=== PATIENT | female | born 1980 | race Two or more races ===

== ENCOUNTER 2016-08-16 08:55 | Emergency (ER) | payer OTHER ==
[2016-08-16 08:59] VITALS: BP 110/61; PULSE 100; TEMP 98.4; BMI 33.8
--- NOTE | 2016-08-16 09:39 | PDOC ---
History of Present Illness - General Chief Complaint: Cold Symptoms Stated Complaint: CHEST PAIN, BODY ACHES, SOB Time Seen by Provider: 08/16/16 09:34 History Source: Patient Exam Limitations: No Limitations - History of Present Illness Initial Comments: 08/16/16 9:22 Reason came to emergency department for evaluation of chills, body aches, sore throat pain with headache. Start 3 days ago with worsened temperature yesterday MAXIMUM TEMPERATURE 101. 6-year-old son is ill with same and complaints of sore throat. took Aleve with some relief of body aches. has a moist cough but nonproductive. Timing/Duration: reports: just prior to arrival, changing over time, getting worse Severity: reports: mild, moderate Associated Symptoms: reports: chest pain/soreness, cough, dizziness, fever/ chills, headache, nasal congestion, sore throat Past History - Travel Traveled outside of the country in the last 30 days: No Close contact w/someone who was outside of country & ill: No - Past Medical History Allergies/Adverse Reactions: Allergies Allergy/AdvReac Type Severity Reaction Status Date / Time No Known Allergies Allergy Verified 08/16/16 08:58 Home Medications: Ambulatory Orders Azithromycin [Zithromax -] 250 mg PO UTDICT #6 tab 08/16/16 Asthma: Yes Diabetes: Yes Suicide Attempt (Hx): No Seizures: Yes (2011) - Immunization History Immunization Up to Date: No - Psycho/Social/Smoking Cessation Hx Anxiety: No Suicidal Ideation: No Smoking Status: Yes Smoking History: Current every day smoker Number of Cigarettes Smoked Daily: 10 Information on smoking cessation initiated: No 'Breaking Loose' booklet given: 04/24/13 Hx Alcohol Use: No Drug/Substance Use Hx: No Substance Use Type: None Review of Systems - Review of Systems Able to Perform ROS?: Yes Is the patient limited German proficient: Yes Constitutional: Yes: Symptoms Reported, See HPI, Fever, Malaise HEENTM: Yes: Symptoms Reported, See HPI Respiratory: Yes: Symptoms reported, See HPI, Cough ABD/GI: Yes: Symptoms Reported, Nausea. No: Vomiting : No: Symptoms Reported Integumentary: Yes: Symptoms Reported, See HPI Neurological: Yes: Symptoms reported, See HPI, Headache All Other Systems: Reviewed and Negative *Physical Exam - Vital Signs Last Vital Signs Temp Pulse Resp BP Pulse Ox 98.4 F 100 H 18 110/61 98 08/16/16 08:57 08/16/16 08:57 08/16/16 08:57 08/16/16 08:57 08/16/16 08:57 - Physical Exam General Appearance: Yes: Nourished, Appropriately Dressed, Apparent Distress, Mild Distress HEENT: positive: GIANNA, TMs Normal (congested ), Pharyngeal Erythema, Tonsillar Erythema, Nasal Congestion, Rhinorrhea (clear). negative: Normal ENT Inspection , Pharynx Normal Neck: positive: Tender, Supple, Lymphadenopathy (R), Lymphadenopathy (L). negative: Decreased range of motion Respiratory/Chest: positive: Lungs Clear, Normal Breath Sounds, Decreased Breath Sounds (no wheezing or retractions ). negative: Wheezing Cardiovascular: positive: Regular Rhythm, Regular Rate Gastrointestinal/Abdominal: positive: Soft. 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, Fully Oriented, Alert, Normal Mood/ Affect, Normal Response, Motor Strength 5/5 Heart Score/ECG Review - ECG Intrepretation Rhythm: Regular Rhythm - ECG Impressions Normal ECG: Yes Non-specific ST Elevation: No Ischemic Changes: No Progress Note - Progress Note Progress Note: bronchitis/ possible Strep - will treat with Zithromax *DC/Admit/Observation/Transfer Diagnosis at time of Disposition: Bronchitis - Discharge Dispostion Disposition: HOME Condition at time of disposition: Stable Admit: No - Prescriptions Prescriptions: Azithromycin [Zithromax -] 250 mg PO UTDICT #6 tab - Referrals Referrals: Alexei Villaseñor [Primary Care Provider] - - Patient Instructions Printed Discharge Instructions: DI for Acute Bronchitis Additional Instructions: Rest, drink lots of fluids: Teas, water, soups, Pedialyte Saltwater gargles Steamy showers/seem to face break up mucus Avoid contact with others until fevers and cough resolved Lots of handwashing and good hygiene Continue [id number]-[id number] medications for symptomatic relief Tylenol or Motrin for fever and pain Followup with private physician in one to 2 days as needed Return to emergency department for worsened symptoms, fevers, dehydration - Post Discharge Activity Work/School Note: Back to Work
--- NOTE | 2016-08-18 15:39 | EKG ---
Test Reason : Blood Pressure : / mmHG Vent. Rate : 108 BPM Atrial Rate : 108 BPM P-R Int : 136 ms QRS Dur : 082 ms QT Int : 332 ms P-R-T Axes : 066 048 047 degrees QTc Int : 444 ms SINUS TACHYCARDIA POSSIBLE LEFT ATRIAL ENLARGEMENT BORDERLINE ECG WHEN COMPARED WITH ECG OF 07-SEP-2010 14:51, NO SIGNIFICANT CHANGE WAS FOUND Confirmed by BILL ARRIETA MD ([id number]) on 08/18/2016 3:39:16 PM Referred By: Confirmed By:BILL ARRIETA MD
== END 2016-08-16 09:43 | disposition home or self-care (01) ==
LOC: JERFT 08:55
DX: J40 Bronchitis, not specified as acute or chronic (principal); J45.909 Unspecified asthma, uncomplicated; E11.9 Type 2 diabetes mellitus without complications; Z86.69 Personal history of other diseases of the nervous system and sense organs; F17.210 Nicotine dependence, cigarettes, uncomplicated
CPT/HCPCS: 93005; 93010; 99281-25

== ENCOUNTER 2017-03-21 12:38 | Emergency (ER) | payer OTHER ==
[2017-03-21 13:07] VITALS: BP 120/56; PULSE 93; TEMP 98.3; BMI 35.9
[2017-03-21] MEDS ORDERED: IBUPROFEN 600 MG TABLET (FP) PO ONE ×2 (14:26→14:29)
--- NOTE | 2017-03-21 14:31 | PDOC ---
History of Present Illness - General Chief Complaint: Cold Symptoms Stated Complaint: EAR AND THROAT PAIN Time Seen by Provider: 03/21/17 14:06 History Source: Patient Exam Limitations: No Limitations - History of Present Illness Initial Comments: 03/21/17 14:26 36 yr female with c/o sore throat right ear pain and rash to right lower leg. rash for 2 weeks, sore throat ear pain for 3 days no diff swallowing. no sick contacts Severity: reports: mild Past History - Past Medical History Allergies/Adverse Reactions: Allergies Allergy/AdvReac Type Severity Reaction Status Date / Time No Known Allergies Allergy Verified 03/21/17 13:04 Home Medications: Ambulatory Orders Betamethasone Dipr 0.05% Oint [Diprolene] 50 gm TP BID #1 tube 03/21/17 Penicillin V Potassium [Pen Vee K -] 500 mg PO BID #20 tablet 03/21/17 Asthma: Yes COPD: No Diabetes: Yes Seizures: Yes (2011) - Immunization History Immunization Up to Date: No - Suicide/Smoking/Psychosocial Hx Smoking Status: Yes Smoking History: Current every day smoker Have you smoked in the past 12 months: Yes Number of Cigarettes Smoked Daily: 8 Information on smoking cessation initiated: No 'Breaking Loose' booklet given: 04/24/13 Hx Alcohol Use: No Drug/Substance Use Hx: No Substance Use Type: None Review of Systems - Review of Systems Able to Perform ROS?: Yes Is the patient limited Icelandic proficient: No Constitutional: No: Symptoms Reported HEENTM: No: Symptoms Reported Respiratory: No: Symptoms reported Cardiac (ROS): No: Symptoms Reported ABD/GI: No: Symptoms Reported Musculoskeletal: No: Symptoms Reported Integumentary: No: Symptoms Reported *Physical Exam - Vital Signs Last Vital Signs Temp Pulse Resp BP Pulse Ox 98.3 F 93 H 19 120/56 98 03/21/17 13:04 03/21/17 13:04 03/21/17 13:04 03/21/17 13:04 03/21/17 13:04 - Physical Exam General Appearance: Yes: Nourished, Appropriately Dressed HEENT: positive: EOMI, GIANNA, Pharyngeal Erythema, TM Erythema. negative: Nasal Congestion, Orbits, TM Bulging, TM Dull Neck: positive: Supple. negative: Tender Respiratory/Chest: positive: Lungs Clear, Normal Breath Sounds Cardiovascular: positive: Regular Rhythm, Regular Rate Integumentary: positive: Rash (right lower leg ankle laterally with red excoraited area , scaly with multiple scabbed areas ) Medical Decision Making - Medical Decision Making 03/21/17 14:33 cc: sore throat right ear pain scaly red rash to right ankle for 2 months will check rapid strep motrin for pain will prescribe *DC/Admit/Observation/Transfer Diagnosis at time of Disposition: Strep pharyngitis - Discharge Dispostion Disposition: HOME Condition at time of disposition: Good - Prescriptions Prescriptions: Betamethasone Dipr 0.05% Oint [Diprolene] 50 gm TP BID #1 tube Penicillin V Potassium [Pen Vee K -] 500 mg PO BID #20 tablet - Referrals Referrals: Lashanda Ruiz MD [Staff Physician] - - Patient Instructions Printed Discharge Instructions: DI for Strep Throat Additional Instructions: take Penicillin for 10 days throw out toothbrush at end of treatment gargle with warm salt water 4-5 times a day take ibuprofen 600mg every 6hrs for pain or fever apply the ointment as directed to the rash follow with the dermatolgoist for follow up next week - Post Discharge Activity
== END 2017-03-21 14:59 | disposition home or self-care (01) ==
LOC: JERFT 12:38
DX: J02.0 Streptococcal pharyngitis (principal); B95.0 Streptococcus, group A, as the cause of diseases classified elsewhere; J45.909 Unspecified asthma, uncomplicated; E11.9 Type 2 diabetes mellitus without complications; Z86.69 Personal history of other diseases of the nervous system and sense organs
CPT/HCPCS: 87070; 87077; 87430; 99281-25

== ENCOUNTER 2017-07-02 16:48 | Emergency (ER) | payer OTHER ==
--- NOTE | 2017-07-02 16:56 | PDOC ---
Rapid Medical Evaluation Time Seen by Provider: 07/02/17 16:52 Medical Evaluation: Allergies Allergy/AdvReac Type Severity Reaction Status Date / Time No Known Allergies Allergy Verified 03/21/17 13:04 07/02/17 16:52 I have performed a brief in-person evaluation of this patient. The patient presents with a chief complaint of: "allergic reaction since yesterday", burning rash from top of my neck all the way down after i used one of those belts to lose weight Pertinent physical exam findings: erythema across waist and back I have ordered the following: nothing The patient will proceed to the ED for further evaluation. Discharge Disposition - Diagnosis Rash - Referrals - Patient Instructions - Post Discharge Activity
[2017-07-02 16:57] VITALS: BP 122/69; PULSE 80; TEMP 98.2; BMI 34.5
[2017-07-02] MEDS ORDERED: diphenhydrAMINE HCL 25 MG CAPSULE (FP) PO ONE (17:36)
[2017-07-02] MEDS ORDERED: diphenhydrAMINE HCL 50 MG CAPSULE PO ONE (17:37)
--- NOTE | 2017-07-02 17:42 | PDOC ---
History of Present Illness - General Chief Complaint: Allergic Reaction Stated Complaint: ALLERGIC REACTION Time Seen by Provider: 07/02/17 16:52 History Source: Patient Exam Limitations: No Limitations - History of Present Illness Initial Comments: 07/02/17 17:43 36-year-old woman without significant past medical history who presents emergency Department with diffuse rash to her trunk which started yesterday. Patient states she purchased a weight loss belt on [employer] and began using yesterday to help lose weight. Patient states after 2-3 hours and warned about she started to have been itching/burning sensation to her upper back, lower back and abdomen. She denies any fevers, shortness of breath, difficulty breathing, wheezing, drooling, headaches, palpitations. Past History - Past Medical History Allergies/Adverse Reactions: Allergies Allergy/AdvReac Type Severity Reaction Status Date / Time No Known Allergies Allergy Verified 07/02/17 17:13 Home Medications: Ambulatory Orders NK [No Known Home Medication] 07/02/17 Asthma: Yes CVA: Yes (NO RESIDUAL EFFECTS) COPD: No Diabetes: Yes (NID) Seizures: Yes (2011) - Immunization History Immunization Up to Date: Yes - Suicide/Smoking/Psychosocial Hx Smoking Status: Yes Smoking History: Current every day smoker Have you smoked in the past 12 months: Yes Number of Cigarettes Smoked Daily: 8 Information on smoking cessation initiated: No 'Breaking Loose' booklet given: 04/24/13 Hx Alcohol Use: No Drug/Substance Use Hx: No Substance Use Type: None Review of Systems - Review of Systems Able to Perform ROS?: Yes Is the patient limited Latvian proficient: No Constitutional: No: Symptoms Reported HEENTM: No: Symptoms Reported Respiratory: No: Symptoms reported Cardiac (ROS): No: Symptoms Reported ABD/GI: No: Symptoms Reported : No: Symptoms Reported Musculoskeletal: No: Symptoms Reported Integumentary: Yes: See HPI Neurological: No: Symptoms reported Endocrine: No: Symptoms Reported Hematologic/Lymphatic: No: Symptoms Reported *Physical Exam - Vital Signs Last Vital Signs Temp Pulse Resp BP Pulse Ox 98.2 F 80 18 122/69 100 07/02/17 16:53 07/02/17 16:53 07/02/17 16:53 07/02/17 16:53 07/02/17 16:53 - Physical Exam General Appearance: Yes: Appropriately Dressed. No: Apparent Distress HEENT: positive: Normal ENT Inspection Neck: positive: Trachea midline, Supple. negative: Stridor Respiratory/Chest: positive: Lungs Clear, Normal Breath Sounds. negative: Respiratory Distress, Accessory Muscle Use Cardiovascular: positive: Regular Rhythm, Regular Rate. negative: Murmur Gastrointestinal/Abdominal: positive: Normal Bowel Sounds, Soft. negative: Tender Musculoskeletal: positive: Normal Inspection. negative: CVA Tenderness Extremity: positive: Normal Capillary Refill, Normal Inspection, Normal Range of Motion Integumentary: positive: Rash (Diffuse raised pink rash to abdomen and back) Neurologic: positive: Alert, Normal Response Medical Decision Making - Medical Decision Making 07/02/17 17:46 A/P: 36-year-old female with rash to her back and abdomen status post using a product she purchased online Diffuse raised pink rash noted to abdomen and back. Rash noted to be in perfect for sided geometrical designs consistent with interior pattern of weight loss belt Benadryl 50 mg orally now Discharge home *DC/Admit/Observation/Transfer Diagnosis at time of Disposition: Contact dermatitis Qualifiers: Contact dermatitis type: unspecified Contact dermatitis trigger: unspecified trigger Qualified Code(s): L25.9 - Unspecified contact dermatitis, unspecified cause - Discharge Dispostion Disposition: HOME Condition at time of disposition: Stable Admit: No - Referrals Referrals: Ollie Cerda MD [Staff Physician] - - Patient Instructions Additional Instructions: Apply [id number]-[id number] hydrocortisone cream to affected areas 3 times a day. Take Benadryl 50 mg as needed for itching. Do not drink or drive while taking Benadryl. Avoid using weight loss belt you purchased online. Return to ER for any concerns. - Post Discharge Activity
== END 2017-07-02 17:43 | disposition home or self-care (01) ==
LOC: JERFT 16:48
DX: L23.89 Allergic contact dermatitis due to other agents (principal); E11.9 Type 2 diabetes mellitus without complications; Z79.84 Long term (current) use of oral hypoglycemic drugs; Z86.69 Personal history of other diseases of the nervous system and sense organs; Z86.73 Personal history of transient ischemic attack (TIA), and cerebral infarction without residual deficits; F17.210 Nicotine dependence, cigarettes, uncomplicated
CPT/HCPCS: 99281-25

== ENCOUNTER 2018-07-10 16:08 | Emergency (ER) | payer OTHER ==
--- NOTE | 2018-07-10 16:11 | PDOC ---
Rapid Medical Evaluation Time Seen by Provider: 07/10/18 16:10 Medical Evaluation: Allergies Allergy/AdvReac Type Severity Reaction Status Date / Time No Known Allergies Allergy Verified 07/02/17 17:13 07/10/18 16:10 CC: BS at home 550 PE: NAD Orders: CBC CMP UA U preg Discharge Disposition - Diagnosis Hyperglycemia - Referrals - Patient Instructions - Post Discharge Activity
[2018-07-10 16:17] VITALS: PULSE 80; TEMP 97.8; BMI 33.8
[2018-07-10 16:48] LABS: BASO % 0.4 % (0-2.0); EOS % 1.3 % (0-4.5); HEMOGLOBIN 12.7 GM/dL (10.7-15.3); LYMPH % 33.3 % (8-40); MCH 27.3 pg (25.7-33.7); MCHC 32.5 g/dl (32.0-36.0); MEAN CELL VOLUME 83.7 fl (80-96); MEAN PLT VOLUME 9.8 fl (7.5-11.1); MONO % 7.7 % (3.8-10.2); NEUT % 57.3 % (42.8-82.8); PLATELET COUNT 335 K/MM3 (134-434); RBC 4.66 M/mm3 (3.60-5.2); RDW 13.5 % (11.6-15.6); WHITE BLOOD COUNT 7.2 K/mm3 (4.0-10.0)
--- NOTE | 2018-07-10 16:56 | PDOC ---
History of Present Illness - General Chief Complaint: Blood Sugar Problem Stated Complaint: Blood Sugar Problem Time Seen by Provider: 07/10/18 16:10 History Source: Patient Exam Limitations: No Limitations - History of Present Illness Initial Comments: 07/10/18 17:40 37 yo F with a hx of DM (currently on insulin 20 units levemir BID) presents to the emergency department with elevated blood glucose that has been ongoing since 06/30/2018. Per the patient, she was in the 700s then and placed on levemir. She used to be on insulin 6 years ago but was discontinued per her PMD. She states she saw her PMD this past Friday and had her levemir increased to the 20 units BID. She states she is unable to afford the Novalog that was prescribed to her. Her BG was 550 today and has been experiencing polyuria and polydipsia for the past 3 days. Past History - Past Medical History Allergies/Adverse Reactions: Allergies Allergy/AdvReac Type Severity Reaction Status Date / Time No Known Allergies Allergy Verified 07/10/18 16:12 Home Medications: Ambulatory Orders Atorvastatin Calcium 40 mg PO DAILY 07/10/18 Insulin (Levemir) [Levemir Vial] 20 unit SQ DAILY 07/10/18 Pantoprazole Sodium 40 mg PO DAILY 07/10/18 metFORMIN HCL [Glucophage -] 500 mg PO BID #14 tablet 07/10/18 Asthma: Yes CVA: Yes (NO RESIDUAL EFFECTS) COPD: No Diabetes: Yes (NIDM) Seizures: Yes (2011) - Immunization History Immunization Up to Date: Yes - Suicide/Smoking/Psychosocial Hx Smoking Status: Yes Smoking History: Never smoked Have you smoked in the past 12 months: No Number of Cigarettes Smoked Daily: 8 Information on smoking cessation initiated: No 'Breaking Loose' booklet given: 04/24/13 Hx Alcohol Use: No Drug/Substance Use Hx: No Substance Use Type: None *Physical Exam - Vital Signs Last Vital Signs Temp Pulse Resp BP Pulse Ox 97.8 F 80 16 154/89 100 07/10/18 16:12 07/10/18 16:12 07/10/18 16:12 07/10/18 16:12 07/10/18 16:12 ED Treatment Course - LABORATORY CBC & Chemistry Diagram: 07/10/18 16:18 07/10/18 16:18 *DC/Admit/Observation/Transfer Diagnosis at time of Disposition: Hyperglycemia - Discharge Dispostion Disposition: HOME Decision to Admit order: No - Prescriptions Prescriptions: metFORMIN HCL [Glucophage -] 500 mg PO BID #14 tablet - Referrals Referrals: ON STAFF,NOT [Primary Care Provider] - Stone King MD [Staff Physician] - - Patient Instructions Printed Discharge Instructions: DI for Hyperglycemia -- Adult, Eating a Diet Rich in Fruits and Vegetables, Learn Your Diabetic ABCs Additional Instructions: you were seen for the evaluation of your diabetes. please follow up with your primary medical doctor this friday. please take them medications as prescribed. if you have worsening symptoms or new concerning symptoms such as confusion, fever, chills, nausea, vomiting, chest pain, and decreased urinary output, please return to the emergency department immediately. thank you. - Post Discharge Activity Forms/Work/School Notes: Back to Work
[2018-07-10 17:13] LABS: HCG,QUALITATIVE URINE Negative
[2018-07-10 17:18] LABS: ALBUMIN 4.1 g/dl (3.4-5.0); ALK PHOS 59 U/L (45-117); ANION GAP 8 MMOL/L (8-16); BILIRUBIN,TOTAL 0.4 mg/dL (0.2-1); BLOOD UREA NITROGEN 11 mg/dL (7-18); CALCIUM 9.9 mg/dL (8.5-10.1); CHLORIDE 98 mmol/L (98-107); CO2 23 mmol/L (21-32); CREATININE 0.7 mg/dL (0.55-1.3); GLUCOSE,RANDOM 497 mg/dL (74-106); POTASSIUM 4.2 mmol/L (3.5-5.1); SGOT/AST 18 U/L (15-37); SGPT/ALT 47 U/L (13-61); SODIUM 129 mmol/L (136-145); TOT PROT 7.5 g/dl (6.4-8.2)
[2018-07-10 17:26] LABS: URINE APPEARANCE CLEAR; URINE BILIRUBIN NEGATIVE (NEGATIVE); URINE COLOR YELLOW; URINE GLUCOSE (UA) 3+ (NEGATIVE); URINE KETONE 1+ (NEGATIVE); URINE LEUK ESTERASE NEGATIVE (NEGATIVE); URINE NITRITE NEGATIVE (NEGATIVE); URINE PROTEIN NEGATIVE (NEGATIVE); URINE UROBILINOGEN 0.2 mg/dL (0.2-1.0)
[2018-07-10] MEDS ORDERED: SODIUM CHLORIDE 1,000 ML IV STA (17:34)
[2018-07-10] MEDS ORDERED: INSULIN REGULAR HUMAN 100 UNITS/ML *VIAL IVPUSH ONE (17:34)
[2018-07-10] MEDS ORDERED: INSULIN REGULAR HUMAN 100 UNITS/ML *VIAL ONE (17:45)
--- NOTE | 2018-07-10 18:55 | PDOC ---
Documentation entered by Mook Davis SCRIBE, acting as scribe for Ilana Blankenship MD. Ilana Blankenship MD: This documentation has been prepared by the Susan mya Nirvannie, SCRIBE, under my direction and personally reviewed by me in its entirety. I confirm that the documentation accurately reflects all work, treatment, procedures, and medical decision making performed by me. Attending Attestation - Resident Resident Name: Trevon Moreno - ED Attending Attestation I have performed the following: I have examined & evaluated the patient, The case was reviewed & discussed with the resident, I agree w/resident's findings & plan, Exceptions are as noted - HPI HPI: 07/10/18 18:03 The patient is a 37 year old female, with a significant past medical history of DM (recently insulin dependent 06/30 on 20 units Levemir BID), who presents to the emergency department with, elevated blood glucose. She notes she should have been placed on Novolog, however, she could not afford it. Allergies: NKDA - Physicial Exam PE: 07/10/18 17:32 GENERAL: The patient is in no acute distress. ENT: Ears normal, nares patent, oropharynx clear without exudates. Moist mucous membranes. NECK: Normal range of motion, supple LUNGS: Breath sounds equal, clear to auscultation bilaterally. No wheezes, and no crackles. HEART:Regular rate and rhythm, normal S1 and S2 without murmur, rub or gallop. ABDOMEN: Soft, nontender, normoactive bowel sounds. EXTREMITIES: Normal range of motion, no edema. NEUROLOGICAL: Cranial nerves II through XII grossly intact. Normal speech. No focal neurological deficits. SKIN: Warm, Dry, normal turgor, no rashes or lesions noted. - Medical Decision Making 07/10/18 17:33 Laboratory Tests 07/10/18 07/10/18 07/10/18 16:18 16:18 16:18 WBC 7.2 Hgb 12.7 Hct 39.0 Plt Count 335 Sodium 129 L Potassium 4.2 Chloride 98 Carbon Dioxide 23 Anion Gap 8 BUN 11 Creatinine 0.7 Random Glucose 497 H* Urine HCG, Qual Negative UA pending CXR pending 07/10/18 18:53 Laboratory Tests 07/10/18 07/10/18 16:18 16:18 Urine Ketones 1+ H Urine Nitrite Negative Ur Leukocyte Esterase Negative Urine HCG, Qual Negative Acetone, Qual Positive,trace Hyperglycemia likely related to increasing insulin resistance, increased insulin requirements DOUBT acute infection Will re check fingerstick May need more fluids Pt given goodrx info in order for her to afford her medications Clinical impression: insulin dependent diabetes mellitus, initial presentation Hyperglycemia, initial presentation
[2018-07-10] MEDS ORDERED: metFORMIN HCL 500 MG TABLET (FP) PO ONE (20:17)
[2018-07-10] MEDS ORDERED: metFORMIN HCL 500 MG TABLET (FP) ONE (20:24)
[2018-07-10 20:43] VITALS: BP 150/88
== END 2018-07-10 20:40 | disposition home or self-care (01) ==
LOC: JER 16:08
PROC: 3E0337Z Introduction of Electrolytic and Water Balance Substance into Peripheral Vein, Percutaneous Approach (ICD-10-PCS; principal; 2018-07-10)
PROC: 3E033VG Introduction of Insulin into Peripheral Vein, Percutaneous Approach (ICD-10-PCS; 2018-07-10)
DX: E10.65 Type 1 diabetes mellitus with hyperglycemia (principal); Z79.4 Long term (current) use of insulin; J45.909 Unspecified asthma, uncomplicated; Z86.69 Personal history of other diseases of the nervous system and sense organs; Z86.73 Personal history of transient ischemic attack (TIA), and cerebral infarction without residual deficits
CPT/HCPCS: 36415; 80053; 81003; 82009; 82962; 84703; 85025; 87086; 99283-25; J7030

== ENCOUNTER 2018-08-05 11:42 | Emergency (ER) | payer OTHER | END 2018-08-05 16:58 | disposition home or self-care (01) | LOC: JER 11:42 ==

== ENCOUNTER 2019-05-05 11:43 | Emergency (ER) | payer OTHER ==
[2019-05-05 11:51] VITALS: TEMP 98.2; BMI 34.0
--- NOTE | 2019-05-05 12:26 | PDOC ---
History of Present Illness <Mel Trammell - Last Filed: 05/05/19 17:00> - General History Source: Patient - History of Present Illness Initial Comments: 05/05/19 12:59 Ms. Kramer is a 38 y/o woman w/hx IDDM p/w several days of measured hyperglycemia and difficulty ambulating due to dizziness. She reports similar symptoms in the past when her blood sugar was "very high" and reports measuring her blood sugar today at home in the 300s. She denies any changes to her insulin regimen and follows with endocrinology. She denies any dysuria, hematuria, fevers, chills, cough, chest pain, abdominal pain, weakness, nausea, or vomiting. She reports significant weight loss over the last two months, but is unsure how much weight she has lost. <BarryBrendan cabral - Last Filed: 05/05/19 18:01> - General Chief Complaint: Blood Sugar Problem Stated Complaint: HEADACHE/DIZZINESS Time Seen by Provider: 05/05/19 12:25 Past History <Mel Trammell - Last Filed: 05/05/19 17:00> - Past Medical History Asthma: Yes CVA: Yes (NO RESIDUAL EFFECTS) COPD: No Diabetes: Yes (NIDM) Seizures: Yes (2011) - Immunization History Immunization Up to Date: Yes - Psycho Social/Smoking Cessation Hx Smoking Status: Yes Smoking History: Never smoked Have you smoked in the past 12 months: Yes Number of Cigarettes Smoked Daily: 7 Information on smoking cessation initiated: No 'Breaking Loose' booklet given: 04/24/13 Hx Alcohol Use: No Drug/Substance Use Hx: No Substance Use Type: None <Brendan Henslye - Last Filed: 05/05/19 18:01> - Past Medical History Allergies/Adverse Reactions: Allergies Allergy/AdvReac Type Severity Reaction Status Date / Time No Known Allergies Allergy Verified 05/05/19 11:51 Home Medications: Ambulatory Orders Insulin (Levemir) [Levemir Vial] 30 unit SQ BID 07/10/18 metFORMIN HCL [Glucophage -] 1,000 mg PO BID 03/12/19 Review of Systems - Review of Systems Able to Perform ROS?: Yes Comments:: 05/05/19 13:07 ROS: GENERAL/CONSTITUTIONAL: No fever or chills. No weakness. HEAD, EYES, EARS, NOSE AND THROAT: No change in vision. No ear pain or discharge. No sore throat. CARDIOVASCULAR: No chest pain or shortness of breath RESPIRATORY: No cough, wheezing, or hemoptysis. GASTROINTESTINAL: No nausea, vomiting, diarrhea or constipation. GENITOURINARY: Urinary frequency. No dysuria, or change in urination. MUSCULOSKELETAL: No joint or muscle swelling or pain. No neck or back pain. SKIN: No rash NEUROLOGIC: Lightheadedness. No headache, vertigo, loss of consciousness, or change in strength/sensation. ENDOCRINE: Weight loss. No increased thirst. HEMATOLOGIC/LYMPHATIC: No anemia, easy bleeding, or history of blood clots. ALLERGIC/IMMUNOLOGIC: No hives or skin allergy. <Brendan Hensley - Last Filed: 05/05/19 18:01> *Physical Exam - Vital Signs Last Vital Signs Temp Pulse Resp BP Pulse Ox 98.2 F 96 H 19 128/58 L 98 05/05/19 11:49 05/05/19 11:49 05/05/19 11:49 05/05/19 11:49 05/05/19 11:49 <Mel Trammell - Last Filed: 05/05/19 17:00> - Vital Signs Last Vital Signs Temp Pulse Resp BP Pulse Ox 98.2 F 96 H 19 128/58 L 98 05/05/19 11:49 05/05/19 11:49 05/05/19 11:49 05/05/19 11:49 05/05/19 11:49 - Physical Exam 05/05/19 13:09 PE: GENERAL: Awake, alert, and fully oriented, in no acute distress HEAD: No signs of trauma, normocephalic, atraumatic EYES: PERRLA, EOMI, sclera anicteric, conjunctiva clear ENT: Auricles normal inspection, hearing grossly normal, nares patent, oropharynx clear without exudates. Moist mucosa NECK: Normal ROM, supple, no lymphadenopathy, JVD, or masses LUNGS: No distress, speaks full sentences, clear to auscultation bilaterally HEART: Regular rate and rhythm, normal S1 and S2, no murmurs, rubs or gallops, peripheral pulses normal and equal bilaterally. ABDOMEN: Soft, nontender, normoactive bowel sounds. No guarding, no rebound. No masses EXTREMITIES : Normal inspection, Normal range of motion, no edema. No clubbing or cyanosis NEUROLOGICAL: Cranial nerves II through XII grossly intact. Normal speech, normal gait, no focal sensorimotor deficits SKIN: Warm, Dry, normal turgor, no rashes or lesions noted <Brendan Hensley - Last Filed: 05/05/19 18:01> ED Treatment Course - LABORATORY CBC & Chemistry Diagram: 05/05/19 13:07 05/05/19 13:07 - ADDITIONAL ORDERS Additional order review: Laboratory Results 05/05/19 05/05/19 05/05/19 16:57 16:00 15:45 Anticoagulation Therapy No Result Required. Puncture Site Left radial ABG pH 7.45 ABG pCO2 at Pt Temp 32.7 L ABG pO2 at Pt Temp 101 H ABG HCO3 22.3 ABG O2 Sat (Measured) 97.7 ABG O2 Content 16.4 ABG Base Excess -0.7 Roberto Test Positive VBG pH POC VBG pCO2 POC VBG pO2 VBG HCO3 VBG O2 Sat (Chauncey) VBG Base Excess Carboxyhemoglobin 2.9 H Methemoglobin 1.1 O2 Delivery Device No Result Required. Oxygen Flow Rate Room air Vent Mode No Result Required. Vent Rate No Result Required. Mechanical Rate No Result Required. Pressure Support Vent No Result Required. Sodium Potassium Chloride Carbon Dioxide Anion Gap BUN Creatinine Est GFR (CKD-EPI)AfAm Est GFR (CKD-EPI)NonAf POC Glucometer 272 Random Glucose Calcium Total Bilirubin AST ALT Alkaline Phosphatase Creatine Kinase Troponin I Total Protein Albumin Beta-Hydroxybutyrate Urine Color Urine Appearance Urine pH Ur Specific [place] Urine Protein Urine Glucose (UA) Urine Ketones Urine Blood Urine Nitrite Urine Bilirubin Urine Urobilinogen Ur Leukocyte Esterase Urine HCG, Qual Negative 05/05/19 05/05/19 05/05/19 15:38 13:25 13:21 Anticoagulation Therapy Puncture Site ABG pH ABG pCO2 at Pt Temp ABG pO2 at Pt Temp ABG HCO3 ABG O2 Sat (Measured) ABG O2 Content ABG Base Excess Roberto Test VBG pH POC VBG pCO2 POC VBG pO2 VBG HCO3 VBG O2 Sat (Chauncey) VBG Base Excess Carboxyhemoglobin Methemoglobin O2 Delivery Device Oxygen Flow Rate Vent Mode Vent Rate Mechanical Rate Pressure Support Vent Sodium Potassium Chloride Carbon Dioxide Anion Gap BUN Creatinine Est GFR (CKD-EPI)AfAm Est GFR (CKD-EPI)NonAf POC Glucometer 255 385 Random Glucose Calcium Total Bilirubin AST ALT Alkaline Phosphatase Creatine Kinase Troponin I Total Protein Albumin Beta-Hydroxybutyrate Urine Color Yellow Urine Appearance Clear Urine pH 5.5 Ur Specific [place] 1.042 H Urine Protein Negative Urine Glucose (UA) 3+ H Urine Ketones 3+ H Urine Blood Negative Urine Nitrite Negative Urine Bilirubin Negative Urine Urobilinogen 0.2 Ur Leukocyte Esterase Negative Urine HCG, Qual 05/05/19 05/05/19 05/05/19 13:07 13:07 13:07 Anticoagulation Therapy Puncture Site ABG pH ABG pCO2 at Pt Temp ABG pO2 at Pt Temp ABG HCO3 ABG O2 Sat (Measured) ABG O2 Content ABG Base Excess Roberto Test VBG pH 7.41 POC VBG pCO2 41.1 POC VBG pO2 < 49 H VBG HCO3 25.5 VBG O2 Sat (Chauncey) 56.4 L VBG Base Excess 1.3 Carboxyhemoglobin Methemoglobin O2 Delivery Device Oxygen Flow Rate Vent Mode Vent Rate Mechanical Rate Pressure Support Vent Sodium 135 L Potassium 4.2 Chloride 103 Carbon Dioxide 25 Anion Gap 8 BUN 6.5 L Creatinine 0.7 Est GFR (CKD-EPI)AfAm 126.49 Est GFR (CKD-EPI)NonAf 109.14 POC Glucometer Random Glucose 410 H* Calcium 9.0 Total Bilirubin 0.3 AST 14 L ALT 24 Alkaline Phosphatase 60 Creatine Kinase 46 Troponin I < 0.02 Total Protein 7.2 Albumin 3.5 Beta-Hydroxybutyrate 7.7 H Urine Color Urine Appearance Urine pH Ur Specific [place] Urine Protein Urine Glucose (UA) Urine Ketones Urine Blood Urine Nitrite Urine Bilirubin Urine Urobilinogen Ur Leukocyte Esterase Urine HCG, Qual 05/05/19 05/05/19 05/05/19 16:57 15:38 13:25 RBC MCV MCHC RDW MPV Neutrophils % Lymphocytes % Monocytes % Eosinophils % Basophils % POC Glucometer 272 255 385 05/05/19 13:07 RBC 4.69 MCV 85.4 MCHC 33.1 RDW 14.0 MPV 9.4 Neutrophils % 70.2 Lymphocytes % 21.4 Monocytes % 7.3 Eosinophils % 0.7 Basophils % 0.4 POC Glucometer - Medications Given in the ED: ED Medications Discontinued Medications Generic Name Dose Route Start Last Admin Trade Name Freq PRN Reason Stop Dose Admin Sodium Chloride 1,000 ml 05/05/19 12:58 05/05/19 13:22 Normal Saline - IV 05/05/19 12:59 1,000 ml ONCE ONE Administration Sodium Chloride 1,000 ml 05/05/19 14:26 05/05/19 15:41 Normal Saline - IV 05/05/19 14:27 1,000 ml ONCE ONE Administration <Mel Trammell - Last Filed: 05/05/19 17:00> - LABORATORY CBC & Chemistry Diagram: 05/05/19 13:07 05/05/19 13:07 <Brendan Hensley - Last Filed: 05/05/19 18:01> Medical Decision Making - Medical Decision Making 05/05/19 13:10 38F w/hx IDDM p/w lightheadedness, hyperglycemia, difficulty ambulating. Ddx includes dka vs HHS, although no nausea/vomiting/confusion/abdominal pain make these less likely. Hyperglycemia without acidosis also possible, although no obvious source of glucose derangement. ACS also possible given possibility of atypical features. Plan: CBC CMP Cardiac Profile EKG CXR Cardiac profile BGM 1L NS IV Dispo: Pending --- BGM - 380 05/05/19 14:32 VBG - 7.41, pCO2 41, Base excess 1.3 Na - 135, Cl - 103, CO2 - 25 Anion gap - 7 CBC - wnl Beta hydroxybutyrate - 7.7 Second fluid bolus ordered, plan for abg s/p fluids --- ABG - pH 7.45, pCO2 32, Bicarb 22 Repeat glucose - 255 Plan for discharge with close endocrinology follow up. <Brendan Hensley - Last Filed: 05/05/19 18:01> Discharge - Discharge Information Problems reviewed: Yes - Admission No <Mel Trammell - Last Filed: 05/05/19 17:00> - Discharge Information Problems reviewed: Yes - Admission No <Brendan Hensley - Last Filed: 05/05/19 18:01> - Discharge Information Clinical Impression/Diagnosis: Blood sugar increased Condition: Stable Disposition: HOME - Follow up/Referral Referrals: ON STAFF,NOT [Non Staff, Medical] - - Patient Discharge Instructions Patient Printed Discharge Instructions: DI for Hyperglycemia -- Adult Additional Instructions: You were seen in the ER for high blood sugar. We did blood and urine laboratories, and an electrocardiogram, and although your blood sugar was very high, there was nothing detected on this workup that requires admission to the hospital at this time. After our assessment, we do not believe you are having a medical emergency at this time, and we believe you are safe to go home. Please take all your diabetes medications as prescribed. Please follow up with your primary care provider in 1-3 days. Call their clinic as soon as possible, tell them you were seen in the ER, and tell them you need an appointment. If you have any new or worsening symptoms, especially inability to control your blood sugars, loss of consciousness, excessive thirst or urination, abdominal pain, or other symptoms, please come back to the ER at any time (24 hours a day). If you are having severe or life threatening symptoms, or symptoms that make it unsafe to drive or have someone drive you, please call 911. Letting your blood sugar go too high or too low can be very dangerous and can result in severe confusion/coma/ in the short term, and heart/kidney/ vascular complications in the intermediate card tender. For example, long-term uncontrolled diabetes like yours could potentially lead to kidney failure and the need for dialysis three days a week. Bottom line: -Your diabetes is a serious illness and you need to take care of yourself. -Take all of your medications, exactly as directed on your prescription. -Eat the healthy diet discussed by you and your regular doctor(s). -Uncontrolled diabetes can lead to heart disease, kidney disease, and brain disease. -Please start seeing an cupola melting supervisor to discuss your diabetes medications.
[2019-05-05] MEDS ORDERED: SODIUM CHLORIDE 0.9% 500 ML INFUS.BAG IV ONE ×2 (12:58→14:26)
[2019-05-05 13:31] LABS: BASO % 0.4 % (0-2.0); EOS % 0.7 % (0-4.5); HEMATOCRIT 40.1 % (32.4-45.2); HEMOGLOBIN 13.3 GM/dL (10.7-15.3); LYMPH % 21.4 % (8-40); MCH 28.3 pg (25.7-33.7); MCHC 33.1 g/dl (32.0-36.0); MEAN CELL VOLUME 85.4 fl (80-96); MEAN PLT VOLUME 9.4 fl (7.5-11.1); MONO % 7.3 % (3.8-10.2); NEUT % 70.2 % (42.8-82.8); PLATELET COUNT 366 K/MM3 (134-434); RBC 4.69 M/mm3 (3.60-5.2); WHITE BLOOD COUNT 6.7 K/mm3 (4.0-10.0)
[2019-05-05 13:43] LABS: VENOUS PC02 41.1 mmHg (38-52); VENOUS PH 7.41 (7.31-7.41)
[2019-05-05 13:44] LABS: VENOUS PO2 < 49 mmHg (28-48)
[2019-05-05 13:47] LABS: PH,URINE 5.5 (5.0-8.0); URINE APPEARANCE CLEAR; URINE BILIRUBIN NEGATIVE (NEGATIVE); URINE COLOR YELLOW; URINE GLUCOSE (UA) 3+ (NEGATIVE); URINE KETONE 3+ (NEGATIVE); URINE LEUK ESTERASE NEGATIVE (NEGATIVE); URINE NITRITE NEGATIVE (NEGATIVE); URINE PROTEIN NEGATIVE (NEGATIVE); URINE UROBILINOGEN 0.2 mg/dL (0.2-1.0)
[2019-05-05 14:00] LABS: ALBUMIN 3.5 g/dl (3.4-5.0); ALK PHOS 60 U/L (45-117); ANION GAP 8 MMOL/L (8-16); BILIRUBIN,TOTAL 0.3 mg/dL (0.2-1); BLOOD UREA NITROGEN 6.5 mg/dL (7-18); CHLORIDE 103 mmol/L (98-107); CO2 25 mmol/L (21-32); CREATININE 0.7 mg/dL (0.55-1.3); POTASSIUM 4.2 mmol/L (3.5-5.1); SGOT/AST 14 U/L (15-37); SGPT/ALT 24 U/L (13-61); SODIUM 135 mmol/L (136-145); TOT PROT 7.2 g/dl (6.4-8.2)
[2019-05-05 14:06] LABS: GLUCOSE,RANDOM 410 mg/dL (74-106)
[2019-05-05 15:54] LABS: ARTERIAL BLD GAS O2 SATURATION 97.7 % (95-98); ARTERIAL BLOOD GAS BASE EXCESS -0.7 meq/l (-2-2); ARTERIAL BLOOD GAS PCO2 32.7 mmHg (35-45); ARTERIAL BLOOD GAS PO2 101 mmHg (80-100); ARTERIAL BLOOD GAS pH 7.45 (7.35-7.45); CARBOXYHEMOGLOBIN 2.9 % (0-2)
[2019-05-05 15:55] LABS: ALLENS TEST POSITIVE
--- NOTE | 2019-05-05 16:07 | PDOC ---
Documentation entered by Vicki Stokes SCRIBE, acting as scribe for Leanne Nichole MD. Leanne Nichole MD: This documentation has been prepared by the Divya may Xhesika, SCRIBE, under my direction and personally reviewed by me in its entirety. I confirm that the documentation accurately reflects all work, treatment, procedures, and medical decision making performed by me. Attending Attestation - Resident Resident Name: Brendan Hensley - ED Attending Attestation I have performed the following: I have examined & evaluated the patient, The case was reviewed & discussed with the resident, I agree w/resident's findings & plan, Exceptions are as noted - HPI HPI: 05/05/19 13:48 The patient is a 38 year old female, with a significant past medical history of IDDM, who presents to the emergency department for several days of hyperglycemia. Pt states she measured her BG today at home and it was in the 300 s. Patient reports difficulty ambulating secondary to her dizziness. The patient denies chest pain, shortness of breath. Denies fever, chills, cough , nausea, vomiting, diarrhea and constipation. Denies dysuria, frequency, urgency and hematuria. Allergies: NKDA - Physicial Exam PE: 05/05/19 16:02 awake alert lungs clear bilat heart rrr no mrg abd soft nt nd . ext wwp no edema. no calf tenderness. awake alert - Medical Decision Making 05/05/19 16:05 38-year-old female insulin-dependent diabetic currently on long-acting and short acting insulin here today for sugars which been running in the 300s. She does have a recent cough and nasal congestion viral-like syndrome but no fevers no chills no abdominal pain no nausea no vomiting no dysuria polyuria no other complaints states she is not Differential includes DKA versus simple hyperglycemia underlying infection plan UA UCG basic labs beta hydroxybutyrate. Patient's labs revealed a sugar of 410 the beta hydroxybutyrate was positive with the 2 L normal saline the patient's glucose did improve is felt she could likely be discharged home with close follow-up will put a call out to her doctor [facility] at [facility] 05/05/19 16:06 05/05/19 16:06 glucose 255 on repeat check. will gio wv home.
[2019-05-05 17:23] VITALS: BP 126/62; PULSE 84
--- NOTE | 2019-05-06 11:54 | EKG ---
Test Reason : Blood Pressure : / mmHG Vent. Rate : 081 BPM Atrial Rate : 081 BPM P-R Int : 146 ms QRS Dur : 090 ms QT Int : 368 ms P-R-T Axes : 037 032 034 degrees QTc Int : 427 ms NORMAL SINUS RHYTHM CANNOT RULE OUT ANTERIOR INFARCT , AGE UNDETERMINED ABNORMAL ECG WHEN COMPARED WITH ECG OF 05-AUG-2018 11:36, NONSPECIFIC T WAVE ABNORMALITY, IMPROVED IN ANTERIOR LEADS Confirmed by LEWIS GAITAN, SHARITA ([id number]) on 05/06/2019 11:54:29 AM Referred By: Confirmed By:SHARITA SAUCEDO MD
== END 2019-05-05 17:22 | disposition home or self-care (01) ==
LOC: JER 11:43
PROC: 3E0337Z Introduction of Electrolytic and Water Balance Substance into Peripheral Vein, Percutaneous Approach (ICD-10-PCS; principal; 2019-05-05)
DX: E11.65 Type 2 diabetes mellitus with hyperglycemia (principal); J45.909 Unspecified asthma, uncomplicated; Z86.73 Personal history of transient ischemic attack (TIA), and cerebral infarction without residual deficits; R56.9 Unspecified convulsions; F17.210 Nicotine dependence, cigarettes, uncomplicated
CPT/HCPCS: 36415; 36600; 71045-TC-FY; 80053; 81003; 82010; 82375; 82550; 82803; 82962; 83050; 84484; 84703; 85025; 87077; 87086; 93005; 93010; 99285-25

== ENCOUNTER 2019-10-13 10:45 | Emergency (ER) | payer OTHER ==
[2019-10-13 10:58] VITALS: BP 125/85; PULSE 72; TEMP 98.9; BMI 26.4
--- NOTE | 2019-10-13 11:19 | PDOC ---
History of Present Illness - General Chief Complaint: Back Pain Stated Complaint: LWR BACK PAIN/NECK RASH Time Seen by Provider: 10/13/19 11:05 History Source: Patient Exam Limitations: No Limitations - History of Present Illness Initial Comments: 10/13/19 11:13 Patient is a 39-year-old female with a history of diabetes who presents to the ED with lower lumbar back tenderness in the midline for the last 1 week. She states she works at [employer] and lifts heavy things all the time. She denies any numbness or tingling down her lower extremities. She denies any difficulty walking. She states the pain is intermittent and sharp in nature. She also states she developed a rash this morning upon waking up to her left neck that was burning her. She denies any fevers or chills. She denies any dysuria, hematuria or frequency/urgency. Past History - Medical History Allergies/Adverse Reactions: Allergies Allergy/AdvReac Type Severity Reaction Status Date / Time No Known Allergies Allergy Verified 10/13/19 10:58 Home Medications: Ambulatory Orders Insulin (Levemir) [Levemir Vial] 30 unit SQ BID 07/10/18 metFORMIN HCL [Glucophage -] 1,000 mg PO BID 03/12/19 Insulin Sliding Scale [Novolog Vial Sliding Scale -] 10 units SQ ACHS 07/10/19 Cephalexin [Keflex] 500 mg PO BID #14 capsule 07/15/19 Clindamycin [Cleocin -] 300 mg PO TID 7 Days #21 capsule 07/20/19 Hydrocortisone 1% Ointment [Hytone 1% Ointment -] 1 applic TP BID 7 Days #1 tube 10/13/19 Asthma: Yes CVA: Yes (NO RESIDUAL EFFECTS) COPD: No Diabetes: Yes (IDDM) Seizures: Yes (2011) - Reproductive History Is Patient Now?: No - Immunization History Immunization Up to Date: Yes - Psycho-Social/Smoking History Smoking Status: Yes Smoking History: Current every day smoker Have you smoked in the past 12 months: Yes Number of Cigarettes Smoked Daily: 10 Information on smoking cessation initiated: No 'Breaking Loose' booklet given: 04/24/13 - Substance Abuse Hx (Audit-C & DAST Scrn) How often the patient has a drink containing alcohol: Monthly or less Score: In Men: 4 or > Positive; In Women: 3 or > Positive: 1 Screen Result (Pos requires Nsg. Audit-10AR): Negative In the last yr the pt used illegal drug/Rx for NonMed reason: No Score: Yes response is considered Positive: 0 Screen Result (Positive result requires Nsg. DAST-10): Negative Review of Systems - Review of Systems Comments:: 10/13/19 11:13 - Review of Systems Able to Perform ROS?: Yes Constitutional: No: Fever, Chills, Loss of Appetite, Night Sweats, Weakness HEENTM: No: Eye Pain, Vision changes, Ear Pain, Throat Pain, Throat Swelling, Mouth Pain, Difficulty Swallowing Respiratory: No: Cough, Shortness of Breath, Wheezing, Sputum Production Cardiac (ROS): No: Chest Pain, Chest Tightness, Palpitations, Irregular Heart Beat, Edema ABD/GI: No: Nausea, Vomiting, Abdominal Pain, Diarrhea : No Dysuria, No Hematuria, No Frequency, No Urgency, No Vaginal Discharge/Pain, No Penile Discharge/Pain Musculoskeletal: No: Muscle Pain, Joint Pain, Muscle Weakness, Neck Pain, positive: Midline lower lumbar back pain Integumentary: No: Lesions, positive: Left posterior neck rash Neurological: No: Headache, Numbness, Tingling, Weakness, Speech Difficulties *Physical Exam - Vital Signs Last Vital Signs Temp Pulse Resp BP Pulse Ox 98.9 F 72 18 125/85 100 10/13/19 10:54 10/13/19 10:54 10/13/19 10:54 10/13/19 10:54 10/13/19 10:54 - Physical Exam 10/13/19 11:14 - Physical Exam General Appearance: Nourished, Appropriately Dressed, No Distress HEENT: EOMI, Normal Voice, Hearing Grossly Normal Neck: Supple, No Lymphadenopathy (R), No Lymphadenopathy (L), No Rigidity, No Decreased range of motion Respiratory/Chest: Lungs Clear, Normal Breath Sounds. No Respiratory Distress, No Accessory Muscle Use Cardiovascular: Regular Rhythm, Regular Rate, S1, S2 Gastrointestinal/Abdominal: Normal Bowel Sounds, Soft. Non-tender, No Guarding, No Rebound, No Rigidity Musculoskeletal: Normal Inspection. No Decreased Range of Motion; positive lower lumbar midline back tenderness to palpation. No paraspinal, right or left lumbar back tenderness to palpation. Full range of motion. Sensation intact to light touch to the bilateral lower extremities. EHL intact bilaterally. Strength 5/5 bilateral lower extremities. Normal gait. Extremity: Normal Capillary Refill, Normal Inspection Integumentary: Normal Color, Dry. There is a dry scaly rash to the posterior left neck consistent with a contact dermatitis or eczema. There are no sharp borders causing concern for a tinea. No vesicles or drainage appreciated. Neurologic: informatica mdm architect II-XII NML intact, Fully Oriented, Alert, Normal Mood/Affect, Normal Response ED Treatment Course - RADIOLOGY Radiology Studies Ordered: Category Date Time Status SPINE-LUMBAR ONLY [RAD] Stat Radiology 10/13/19 11:12 Ordered Medical Decision Making - Medical Decision Making 10/13/19 11:16 Assessment: Pt is a 39 y/o female with complaint of midline lower lumbar back pain and a left posterior neck rash. Plan: -lumbar xray -will d/c with hydrocortisone cream for neck rash -Will reassess 10/13/19 12:27 The patient states that she is unable to wait for the x-ray results and would like to sign out AGAINST MEDICAL ADVICE. I have made the patient aware that since we are not completing her evaluation, that if she leaves the ED she has to do so AMA. She understands that by leaving AMA this can worsen her symptoms, cause permanent disability or even . The patient understands these risks and continues to want to sign out AMA. We will call the patient with results when they become available. We will send the patient a prescription for hydrocortisone to her pharmacy for her neck rash. 10/13/19 12:32 Patient requested to leave AMA. Patient is determined to be of sound mind and reasoning. The patient fully understands the care they are refusing and the risks associated with leaving before complete medical evaluation as explained by the medical team. The patient understands the risks of possible worsening symptoms, permanent disability and even . The patient has been provided with a discharge summary, return preca utions, and the reassurance that the Emergency Department will resume workup if the patient changes their mind. Immediate primary care follow up has been urged. Discharge - Discharge Information Problems reviewed: Yes Clinical Impression/Diagnosis: Contact dermatitis and eczema Low back pain Qualifiers: Chronicity: acute Back pain laterality: midline Sciatica presence: without sciatica Qualified Code(s): M54.5 - Low back pain Condition: Stable Disposition: AGAINST MEDICAL ADVICE - Additional Discharge Information Prescriptions: Hydrocortisone 1% Ointment [Hytone 1% Ointment -] 1 applic TP BID 7 Days #1 tube - Follow up/Referral - Patient Discharge Instructions Patient Printed Discharge Instructions: DI for Low Back Pain, DI for Contact Dermatitis Additional Instructions: You have decided to sign out AGAINST MEDICAL ADVICE as you are unable to wait for your x-ray results. A prescription for a steroid cream has been sent to [facility] for the rash on the back your neck. Once your x-ray results become available, you will get a call regarding your results if they are abnormal. Be sure to follow-up with your primary doctor within 1 to 2 days for repeat evaluation. - Post Discharge Activity
== END 2019-10-13 12:42 | disposition left against medical advice (07) ==
LOC: JERFT 10:45
DX: M54.5 Low back pain (principal); L25.9 Unspecified contact dermatitis, unspecified cause
CPT/HCPCS: 72100-TC-FY; 99283-25

== ENCOUNTER 2020-02-03 13:19 | Emergency (ER) | payer OTHER ==
[2020-02-03 13:39] VITALS: BP 127/81; PULSE 80; TEMP 98.4; BMI 30.2
[2020-02-03] MEDS ORDERED: KETOROLAC TROMETHAMINE 60 MG/2 ML VIAL IM ONE (13:50)
[2020-02-03] MEDS ORDERED: KETOROLAC TROMETHAMINE 60 MG/2 ML VIAL ONE (13:50)
== END 2020-02-03 14:50 | disposition home or self-care (01) ==
LOC: JERFT 13:19
PROC: 3E0233Z Introduction of Anti-inflammatory into Muscle, Percutaneous Approach (ICD-10-PCS; principal; 2020-02-03)
DX: S20.211A Contusion of right front wall of thorax, initial encounter (principal)
CPT/HCPCS: 71046-TC-FY; 71111-TC-FY; 99284-25

== ENCOUNTER 2020-08-17 09:08 | Emergency (ER) | payer OTHER ==
[2020-08-17 09:18] VITALS: BP 108/73; PULSE 95; TEMP 98; BMI 28.3
[2020-08-17] MEDS ORDERED: IBUPROFEN 400 MG TABLET (FP) PO ONE ×2 (10:09→10:11)
== END 2020-08-17 11:37 | disposition home or self-care (01) ==
LOC: JERFT 09:08
DX: S63.502A Unspecified sprain of left wrist, initial encounter (principal)
CPT/HCPCS: 73110-TC-LT-FY; 73130-TC-LT-FY; 99283-25

== ENCOUNTER 2020-12-16 11:07 | Emergency (ER) | payer OTHER ==
[2020-12-16 11:30] VITALS: TEMP 98.1; BMI 25.4
[2020-12-16] MEDS ORDERED: CLINDAMYCIN 600MG PREMIX IVPB 600 MG/50 ML BAG IVPB ONE ×2 (12:35→12:43)
[2020-12-16] MEDS ORDERED: SODIUM CHLORIDE 0.9% 500 ML INFUS.BAG IV ONE (12:36)
[2020-12-16] MEDS ORDERED: ACETAMINOPHEN 1000 MG/100 ML VIAL (NON FORMULARY) IVPB ONE (12:48)
[2020-12-16] MEDS ORDERED: ACETAMINOPHEN INJECTION 100 ML IVPB ONE (13:10)
[2020-12-16 13:57] LABS: BASO % 0.7 % (0-2.0); EOS % 0.6 % (0-4.5); HEMATOCRIT 40.3 % (32.4-45.2); HEMOGLOBIN 13.5 GM/dL (10.7-15.3); LYMPH % 23.1 % (8-40); MCH 28.1 pg (25.7-33.7); MCHC 33.5 g/dl (32.0-36.0); MEAN CELL VOLUME 84.1 fl (80-96); MEAN PLT VOLUME 9.8 fl (7.5-11.1); MONO % 5.6 % (3.8-10.2); PLATELET COUNT 354 10^3/uL (134-434); RDW 14.2 % (11.6-15.6); WHITE BLOOD COUNT 9.9 K/mm3 (4.0-10.0)
[2020-12-16 13:59] LABS: URINE APPEARANCE CLEAR; URINE BILIRUBIN NEGATIVE (NEGATIVE); URINE COLOR YELLOW; URINE GLUCOSE (UA) 3+ (NEGATIVE); URINE KETONE 3+ (NEGATIVE); URINE LEUK ESTERASE NEGATIVE (NEGATIVE); URINE NITRITE NEGATIVE (NEGATIVE); URINE PROTEIN NEGATIVE (NEGATIVE); URINE UROBILINOGEN 0.2 mg/dL (0.2-1.0)
[2020-12-16 14:21] LABS: VENOUS BASE EXCESS -6.3 mmol/L (-2-2); VENOUS O2 SATURATION 35.6 % (70-80); VENOUS PCO2 38.9 mmHg (38-52); VENOUS PH 7.315 (7.310-7.410)
[2020-12-16 14:22] LABS: CHLORIDE 99 mmol/L (98-107); SODIUM 132 mmol/L (136-145)
[2020-12-16 14:24] LABS: CALCIUM 9.3 mg/dL (8.5-10.1)
[2020-12-16 14:25] LABS: ALBUMIN 3.7 g/dl (3.4-5.0); ANION GAP 14 MMOL/L (8-16); BLOOD UREA NITROGEN 9.3 mg/dL (7-18); CO2 19 mmol/L (21-32)
[2020-12-16 14:28] LABS: CREATININE 0.7 mg/dL (0.55-1.3); SGOT/AST 12 U/L (15-37); SGPT/ALT 17 U/L (13-61)
[2020-12-16 14:29] LABS: BILIRUBIN,TOTAL 0.4 mg/dL (0.2-1); TOT PROT 7.9 g/dl (6.4-8.2)
[2020-12-16 14:30] LABS: ALK PHOS 70 U/L (45-117); GLUCOSE,RANDOM 427 mg/dL (74-106)
[2020-12-16 14:33] LABS: N-TERMINAL BNP 17.4 pg/ml (5-125)
[2020-12-16] MEDS ORDERED: POTASSIUM CHLORIDE TABS 20 MEQ TABLET.ER (FP) PO ONE (14:33)
[2020-12-16] MEDS ORDERED: INSULIN REGULAR HUMAN 100 UNITS/ML *VIAL IVPUSH ONE (14:33)
[2020-12-16] MEDS ORDERED: POTASSIUM CHLORIDE TABS 10 MEQ TABLET.ER (FP) ONE (14:42)
[2020-12-16] MEDS ORDERED: INSULIN REGULAR HUMAN 100 UNITS/ML *VIAL ONE (14:42)
[2020-12-16 16:54] VITALS: BP 117/72; PULSE 71
[2020-12-16 17:04] LABS: BLOOD UREA NITROGEN 7.2 mg/dL (7-18); CALCIUM 8.8 mg/dL (8.5-10.1)
[2020-12-16 17:08] LABS: CREATININE 0.4 mg/dL (0.55-1.3)
== END 2020-12-16 17:41 | disposition left against medical advice (07) ==
LOC: JER 11:07
PROC: 3E0333Z Introduction of Anti-inflammatory into Peripheral Vein, Percutaneous Approach (ICD-10-PCS; principal; 2020-12-16)
PROC: 3E03329 Introduction of Other Anti-infective into Peripheral Vein, Percutaneous Approach (ICD-10-PCS; 2020-12-16)
PROC: 3E013VG Introduction of Insulin into Subcutaneous Tissue, Percutaneous Approach (ICD-10-PCS; 2020-12-16)
DX: R73.9 Hyperglycemia, unspecified (principal); K12.2 Cellulitis and abscess of mouth
CPT/HCPCS: 36415; 70491-TC; 71045-TC-FY; 80048; 80053; 81003; 82010; 82550; 82803; 82962; 83605; 83735; 83880; 84484; 85025; 87086; 93005; 93010; 99285-25; J0131; Q9967

== ENCOUNTER 2020-12-16 18:33 | Emergency (ER) | payer OTHER ==
[2020-12-16 18:40] VITALS: BMI 25.4
[2020-12-16 20:20] VITALS: BP 116/80; PULSE 80; TEMP 98.8
== END 2020-12-16 22:41 | disposition short-term general hospital (02) ==
LOC: JER 18:33
DX: K12.2 Cellulitis and abscess of mouth (principal)
CPT/HCPCS: 82962; 99283-25; C9803; U0003; U0005

== ENCOUNTER 2021-03-09 17:47 | Emergency (ER) | payer OTHER ==
[2021-03-09 18:12] VITALS: TEMP 98.7; BMI 22.6
[2021-03-09] MEDS ORDERED: SODIUM CHLORIDE 1,000 ML IV STA (18:12)
[2021-03-09] MEDS ORDERED: INSULIN REGULAR HUMAN 100 UNITS/ML *VIAL IVPUSH ONE (18:12)
[2021-03-09 19:14] LABS: BASO % 0.9 % (0-2.0); EOS % 0.5 % (0-4.5); HEMATOCRIT 44.4 % (32.4-45.2); HEMOGLOBIN 14.5 GM/dL (10.7-15.3); LYMPH % 22.6 % (8-40); MCH 27.2 pg (25.7-33.7); MCHC 32.7 g/dl (32.0-36.0); MEAN CELL VOLUME 83.4 fl (80-96); MEAN PLT VOLUME 10.4 fl (7.5-11.1); MONO % 5.2 % (3.8-10.2); NEUT % 70.8 % (42.8-82.8); PLATELET COUNT 328 10^3/uL (134-434); RBC 5.32 M/mm3 (3.60-5.2)
[2021-03-09 19:27] LABS: VENOUS BASE EXCESS -9.3 mmol/L (-2-2); VENOUS O2 SATURATION 85.5 % (70-80); VENOUS PCO2 27.4 mmHg (38-52); VENOUS PH 7.342 (7.310-7.410)
[2021-03-09 19:30] LABS: CHLORIDE 100 mmol/L (98-107); SODIUM 128 mmol/L (136-145)
[2021-03-09 19:31] LABS: CALCIUM 9.9 mg/dL (8.5-10.1); EPI CELLS 8 /uL (0-25.1); HYALINE CASTS 0 /uL (0-3.1); URINE APPEARANCE CLEAR; URINE BACTERIA 178 /uL (0-1359); URINE BILIRUBIN NEGATIVE (NEGATIVE); URINE COLOR YELLOW; URINE GLUCOSE (UA) 3+ (NEGATIVE); URINE KETONE 1+ (NEGATIVE); URINE LEUK ESTERASE NEGATIVE (NEGATIVE); URINE NITRITE NEGATIVE (NEGATIVE); URINE PROTEIN NEGATIVE (NEGATIVE); URINE UROBILINOGEN 0.2 mg/dL (0.2-1.0); URINE WBC 32 /uL (0-25.8)
[2021-03-09 19:32] LABS: ALBUMIN 4.1 g/dl (3.4-5.0); BLOOD UREA NITROGEN 14.2 mg/dL (7-18); CO2 17 mmol/L (21-32)
[2021-03-09 19:36] LABS: BILIRUBIN,TOTAL 0.2 mg/dL (0.2-1); CREATININE 0.8 mg/dL (0.55-1.3); SGOT/AST 66 U/L (15-37); TOT PROT 8.3 g/dl (6.4-8.2)
[2021-03-09 19:38] LABS: ALK PHOS 74 U/L (45-117)
[2021-03-09 19:59] LABS: ANION GAP 12 MMOL/L (8-16); GLUCOSE,RANDOM 414 mg/dL (74-106); SGPT/ALT 20 U/L (13-61)
[2021-03-09 20:40] LABS: CALCIUM 9.9 mg/dL (8.5-10.1)
[2021-03-09 20:43] LABS: CREATININE 0.6 mg/dL (0.55-1.3)
[2021-03-09] MEDS ORDERED: POTASSIUM CHLORIDE TABS 20 MEQ TABLET.ER (FP) PO ONE ×2 (20:59→21:01)
[2021-03-09 21:19] VITALS: BP 118/79; PULSE 83
[2021-03-09 22:32] LABS: URINE RBC 18 /uL (0-23.9); YEAST FEW (NEGATIVE)
== END 2021-03-09 21:20 | disposition home or self-care (01) ==
LOC: JER 17:47
PROC: 3E033GC Introduction of Other Therapeutic Substance into Peripheral Vein, Percutaneous Approach (ICD-10-PCS; principal; 2021-03-09)
DX: E10.65 Type 1 diabetes mellitus with hyperglycemia (principal)
CPT/HCPCS: 36415; 71045-TC-FY; 71046-TC-FY; 80048; 80053; 81003; 82010; 82803; 82962; 84484; 85025; 93005; 93010; 99285-25; C9803; U0003; U0005

== ENCOUNTER 2021-03-11 19:44 | Emergency (ER) | payer OTHER ==
[2021-03-11 20:11] VITALS: BP 126/85; PULSE 92; TEMP 98.2; BMI 24.5
[2021-03-11] MEDS ORDERED: SODIUM CHLORIDE 0.9% 500 ML INFUS.BAG IV ONE (20:38)
[2021-03-11] MEDS ORDERED: LACTATED RINGERS SOLUTION 1000 ML INFUS.BAG IV ONE (20:42)
[2021-03-11 21:31] LABS: RBC 5.11 M/mm3 (3.60-5.2)
[2021-03-11 21:32] LABS: HEMATOCRIT 43.5 % (32.4-45.2); HEMOGLOBIN 13.9 GM/dL (10.7-15.3); MCH 27.2 pg (25.7-33.7); MCHC 31.9 g/dl (32.0-36.0); MEAN CELL VOLUME 85.2 fl (80-96); PLATELET COUNT 317 10^3/uL (134-434)
[2021-03-11 21:34] LABS: PLATELET ESTIMATE ADEQUATE
[2021-03-11 21:54] LABS: CHLORIDE 95 mmol/L (98-107); SODIUM 130 mmol/L (136-145)
[2021-03-11 21:56] LABS: ALBUMIN 3.7 g/dl (3.4-5.0); ANION GAP 13 MMOL/L (8-16); CALCIUM 9.5 mg/dL (8.5-10.1); CO2 22 mmol/L (21-32); URINE APPEARANCE CLEAR; URINE BILIRUBIN NEGATIVE (NEGATIVE); URINE COLOR YELLOW; URINE GLUCOSE (UA) 3+ (NEGATIVE); URINE KETONE 2+ (NEGATIVE); URINE LEUK ESTERASE NEGATIVE (NEGATIVE); URINE NITRITE NEGATIVE (NEGATIVE); URINE PROTEIN NEGATIVE (NEGATIVE); URINE UROBILINOGEN 0.2 mg/dL (0.2-1.0)
[2021-03-11 21:59] LABS: SGOT/AST 10 U/L (15-37); SGPT/ALT 17 U/L (13-61)
[2021-03-11 22:01] LABS: BILIRUBIN,TOTAL 0.2 mg/dL (0.2-1); TOT PROT 7.7 g/dl (6.4-8.2)
[2021-03-11 22:02] LABS: ALK PHOS 72 U/L (45-117)
[2021-03-11 22:04] LABS: VENOUS BASE EXCESS -3.6 mmol/L (-2-2); VENOUS O2 SATURATION 57.2 % (70-80); VENOUS PCO2 41.2 mmHg (38-52); VENOUS PH 7.344 (7.310-7.410)
[2021-03-11] MEDS ORDERED: INSULIN REGULAR HUMAN 100 UNITS/ML *VIAL IVPUSH ONE (22:05)
[2021-03-11 22:15] LABS: GLUCOSE,RANDOM 642 mg/dL (74-106)
== END 2021-03-12 | disposition left against medical advice (07) ==
LOC: JER 19:44
PROC: 3E033GC Introduction of Other Therapeutic Substance into Peripheral Vein, Percutaneous Approach (ICD-10-PCS; principal; 2021-03-11)
DX: E10.65 Type 1 diabetes mellitus with hyperglycemia (principal)
CPT/HCPCS: 36415; 80053; 81003; 82010; 82550; 82803; 82962; 84484; 84703; 85025; 87804; 93005; 93010; 99284-25; C9803; U0003; U0005

== ENCOUNTER 2021-03-12 00:14 | Emergency (ER) | payer OTHER ==
[2021-03-12 00:20] VITALS: BP 123/78; PULSE 91; TEMP 97.8; BMI 24.5
== END 2021-03-12 06:08 | disposition home or self-care (01) ==
LOC: JER 00:14
DX: R73.9 Hyperglycemia, unspecified (principal)
CPT/HCPCS: 99281-25

== ENCOUNTER 2021-07-29 08:25 | Emergency (ER) | payer SELFPAY ==
[2021-07-29 08:29] VITALS: BMI 25.9
[2021-07-29] MEDS ORDERED: SODIUM CHLORIDE 0.9% 500 ML INFUS.BAG IV ONE ×2 (09:00→09:58)
[2021-07-29] MEDS ORDERED: ACETAMINOPHEN 1000 MG/100 ML BAG IVPB ONE (09:00)
[2021-07-29] MEDS ORDERED: METOCLOPRAMIDE HCL INJECTION 10 MG/2 ML VIAL IVPB ONE (09:00)
[2021-07-29] MEDS ORDERED: METOCLOPRAMIDE HCL INJECTION 10 MG/2 ML VIAL ONE (09:03)
[2021-07-29 09:14] LABS: BASO % 1.1 % (0-2.0); EOS % 1.3 % (0-4.5); HEMATOCRIT 37.5 % (32.4-45.2); HEMOGLOBIN 12.6 GM/dL (10.7-15.3); LYMPH % 24.1 % (8-40); MCH 28.2 pg (25.7-33.7); MCHC 33.6 g/dl (32.0-36.0); MEAN CELL VOLUME 83.9 fl (80-96); MEAN PLT VOLUME 8.5 fl (7.5-11.1); MONO % 6.4 % (3.8-10.2); NEUT % 67.1 % (42.8-82.8); PLATELET COUNT 361 10^3/uL (134-434); RBC 4.47 M/mm3 (3.60-5.2); RDW 13.7 % (11.6-15.6); WHITE BLOOD COUNT 6.2 K/mm3 (4.0-10.0)
[2021-07-29 09:32] LABS: CHLORIDE 104 mmol/L (98-107); SODIUM 135 mmol/L (136-145)
[2021-07-29 09:35] LABS: CALCIUM 9.3 mg/dL (8.5-10.1)
[2021-07-29 09:36] LABS: ALBUMIN 3.4 g/dl (3.4-5.0); ANION GAP 7 MMOL/L (8-16); CO2 24 mmol/L (21-32)
[2021-07-29 09:38] LABS: SGPT/ALT 16 U/L (13-61)
[2021-07-29 09:39] LABS: CREATININE 0.7 mg/dL (0.55-1.3); SGOT/AST 7 U/L (15-37)
[2021-07-29 09:40] LABS: TOT PROT 6.8 g/dl (6.4-8.2)
[2021-07-29 09:41] LABS: BILIRUBIN,TOTAL 0.4 mg/dL (0.2-1)
[2021-07-29 09:42] LABS: ALK PHOS 60 U/L (45-117)
[2021-07-29 10:10] LABS: GLUCOSE,RANDOM 464 mg/dL (74-106)
[2021-07-29] MEDS ORDERED: INSULIN REGULAR HUMAN 100 UNITS/ML *VIAL IVPUSH ONE (11:52)
[2021-07-29 12:35] LABS: EPI CELLS 3 /uL (0-25.1); HYALINE CASTS 0 /uL (0-3.1); URINE APPEARANCE CLEAR; URINE BACTERIA 21 /uL (0-1359); URINE BILIRUBIN NEGATIVE (NEGATIVE); URINE COLOR YELLOW; URINE GLUCOSE (UA) 3+ (NEGATIVE); URINE KETONE NEGATIVE (NEGATIVE); URINE LEUK ESTERASE NEGATIVE (NEGATIVE); URINE NITRITE NEGATIVE (NEGATIVE); URINE PROTEIN NEGATIVE (NEGATIVE); URINE RBC 111 /uL (0-23.9); URINE UROBILINOGEN 0.2 mg/dL (0.2-1.0); URINE WBC 2 /uL (0-25.8)
[2021-07-29] MEDS ORDERED: IBUPROFEN 400 MG TABLET (FP) PO ONE ×2 (12:46→13:30)
[2021-07-29 13:44] VITALS: BP 116/75; PULSE 70; TEMP 98.1
== END 2021-07-29 13:45 | disposition home or self-care (01) ==
LOC: JER 08:25
PROC: 3E033GC Introduction of Other Therapeutic Substance into Peripheral Vein, Percutaneous Approach (ICD-10-PCS; principal; 2021-07-29)
DX: R51.9 Headache, unspecified (principal); E10.65 Type 1 diabetes mellitus with hyperglycemia
CPT/HCPCS: 36415; 70450-TC; 71045-TC-FY; 80053; 81003; 82962; 84484; 84703; 85025; 87077; 87086; 93005; 93010; 99285-25

== ENCOUNTER 2022-02-07 20:21 | Emergency (ER) | payer OTHER ==
[2022-02-07 20:32] VITALS: RESP 18; BMI 25.8
[2022-02-07] MEDS ORDERED: LACTATED RINGERS SOLUTION 1000 ML INFUS.BAG IV ONE ×2 (21:15→22:29)
[2022-02-07 21:43] LABS: BASO % 1.2 % (0-2.0); EOS % 1.3 % (0-4.5); HEMOGLOBIN 12.5 GM/dL (10.7-15.3); LYMPH % 42.3 % (8-40); MCH 27.5 pg (25.7-33.7); MCHC 32.8 g/dl (32.0-36.0); MEAN CELL VOLUME 83.8 fl (80-96); MEAN PLT VOLUME 8.8 fl (7.5-11.1); MONO % 7.8 % (3.8-10.2); NEUT % 47.4 % (42.8-82.8); PLATELET COUNT 351 10^3/uL (134-434); RBC 4.54 M/mm3 (3.60-5.2); RDW 13.9 % (11.6-15.6); WHITE BLOOD COUNT 5.5 K/mm3 (4.0-10.0)
[2022-02-07 21:46] LABS: VENOUS BASE EXCESS -0.2 mmol/L (-2-2); VENOUS O2 SATURATION 35.2 % (70-80); VENOUS PCO2 48.1 mmHg (38-52); VENOUS PH 7.349 (7.310-7.410)
[2022-02-07 21:49] LABS: URINE APPEARANCE CLEAR; URINE BILIRUBIN NEGATIVE (NEGATIVE); URINE COLOR YELLOW; URINE GLUCOSE (UA) 3+ (NEGATIVE); URINE KETONE NEGATIVE (NEGATIVE); URINE LEUK ESTERASE NEGATIVE (NEGATIVE); URINE NITRITE NEGATIVE (NEGATIVE); URINE PROTEIN NEGATIVE (NEGATIVE); URINE UROBILINOGEN 0.2 mg/dL (0.2-1.0)
[2022-02-07 22:10] LABS: CHLORIDE 93 mmol/L (98-107); SODIUM 131 mmol/L (136-145)
[2022-02-07 22:12] LABS: ALBUMIN 3.6 g/dl (3.4-5.0); ANION GAP 9 MMOL/L (8-16); BLOOD UREA NITROGEN 8.4 mg/dL (7-18); CALCIUM 9.3 mg/dL (8.5-10.1); CO2 29 mmol/L (21-32)
[2022-02-07 22:15] LABS: CREATININE 0.8 mg/dL (0.55-1.3); SGPT/ALT 20 U/L (13-61)
[2022-02-07 22:16] LABS: SGOT/AST 9 U/L (15-37)
[2022-02-07 22:17] LABS: BILIRUBIN,TOTAL 0.1 mg/dL (0.2-1); TOT PROT 7.3 g/dl (6.4-8.2)
[2022-02-07 22:18] LABS: ALK PHOS 72 U/L (45-117)
[2022-02-07] MEDS ORDERED: POTASSIUM CHLORIDE ORAL LIQUID 20 MEQ/15 ML PO ONE (22:29)
[2022-02-07] MEDS ORDERED: INSULIN (LEVEMIR) 100 UNITS/ML UNITS SQ ONE (22:30)
[2022-02-07] MEDS ORDERED: POTASSIUM CHLORIDE ORAL LIQUID 20 MEQ/15 ML ONE (22:41)
[2022-02-07 23:14] LABS: GLUCOSE,RANDOM 621 mg/dL (74-106)
[2022-02-08] MEDS ORDERED: INSULIN (NOVOLOG) ASPART 100 UNITS/ML 10ML VIAL SQ ONE (00:19)
[2022-02-08 02:30] VITALS: BP 113/76; PULSE 81; TEMP 98.1
== END 2022-02-08 02:34 | disposition home or self-care (01) ==
LOC: JER 20:21
PROC: 3E023GC Introduction of Other Therapeutic Substance into Muscle, Percutaneous Approach (ICD-10-PCS; principal; 2022-02-07)
DX: E11.65 Type 2 diabetes mellitus with hyperglycemia (principal)
CPT/HCPCS: 0241U-QW; 36415; 71045-TC-FY; 73130-TC-RT-FY; 80053; 81003; 82010; 82803; 82962; 85025; 87086; 93005; 93010; 99285-25

== ENCOUNTER 2022-02-20 18:02 | Emergency (ER) | payer OTHER ==
[2022-02-20 18:24] VITALS: TEMP 97.7; BMI 25.4
[2022-02-20] MEDS ORDERED: SODIUM CHLORIDE 0.9% 500 ML INFUS.BAG IV ONE ×3 (18:35→21:50)
[2022-02-20] MEDS ORDERED: ACETAMINOPHEN 1000 MG/100 ML BAG IVPB ONE (18:43)
[2022-02-20] MEDS ORDERED: ACETAMINOPHEN INJECTION 100 ML IVPB ONE (18:59)
[2022-02-20 19:27] VITALS: RESP 16
[2022-02-20 19:30] LABS: VENOUS BASE EXCESS 1.5 mmol/L (-2-2); VENOUS O2 SATURATION 26.3 % (70-80); VENOUS PCO2 50.9 mmHg (38-52); VENOUS PH 7.356 (7.310-7.410)
[2022-02-20 19:40] LABS: BASO % 0.7 % (0-2.0); EOS % 0.8 % (0-4.5); HEMATOCRIT 40.8 % (32.4-45.2); HEMOGLOBIN 12.7 GM/dL (10.7-15.3); LYMPH % 28.7 % (8-40); MCHC 31.2 g/dl (32.0-36.0); MEAN CELL VOLUME 86.5 fl (80-96); MEAN PLT VOLUME 9.2 fl (7.5-11.1); MONO % 7.5 % (3.8-10.2); NEUT % 62.3 % (42.8-82.8); PLATELET COUNT 399 10^3/uL (134-434); RBC 4.71 M/mm3 (3.60-5.2); RDW 14.1 % (11.6-15.6)
[2022-02-20 19:44] LABS: CHLORIDE 94 mmol/L (98-107); SODIUM 132 mmol/L (136-145)
[2022-02-20 19:46] LABS: BLOOD UREA NITROGEN 8.8 mg/dL (7-18)
[2022-02-20 19:47] LABS: CALCIUM 9.9 mg/dL (8.5-10.1); LIPASE 253 U/L (73-393)
[2022-02-20 19:48] LABS: ALBUMIN 3.8 g/dl (3.4-5.0); ANION GAP 13 MMOL/L (8-16); CO2 26 mmol/L (21-32)
[2022-02-20 19:50] LABS: SGOT/AST 8 U/L (15-37); SGPT/ALT 21 U/L (13-61)
[2022-02-20 19:51] LABS: PHOSPHOROUS 3.6 mg/dL (2.5-4.9)
[2022-02-20 19:52] LABS: TOT PROT 7.4 g/dl (6.4-8.2)
[2022-02-20 19:53] LABS: BILIRUBIN,TOTAL 0.2 mg/dL (0.2-1)
[2022-02-20 19:54] LABS: ALK PHOS 67 U/L (45-117)
[2022-02-20 19:55] LABS: GLUCOSE,RANDOM 896 mg/dL (74-106)
[2022-02-20 19:57] LABS: INR 0.86 (0.83-1.09); PROTHROMBIN TIME (PATIENT) 9.9 SEC (9.7-13.0)
[2022-02-20 20:00] LABS: ACTIVATED PTT 29.1 SECONDS (25.2-36.5)
[2022-02-20] MEDS ORDERED: INSULIN REGULAR HUMAN 100 UNITS/ML *VIAL IVPUSH ONE (20:53)
[2022-02-20 21:00] LABS: URINE APPEARANCE CLEAR; URINE BILIRUBIN NEGATIVE (NEGATIVE); URINE COLOR YELLOW; URINE GLUCOSE (UA) 3+ (NEGATIVE); URINE KETONE NEGATIVE (NEGATIVE); URINE LEUK ESTERASE NEGATIVE (NEGATIVE); URINE NITRITE NEGATIVE (NEGATIVE); URINE PROTEIN NEGATIVE (NEGATIVE); URINE UROBILINOGEN 0.2 mg/dL (0.2-1.0)
[2022-02-20] MEDS ORDERED: INSULIN REGULAR HUMAN 100 UNITS/ML *VIAL ONE (21:01)
[2022-02-20 22:19] VITALS: BP 107/64; PULSE 80
== END 2022-02-20 22:51 | disposition home or self-care (01) ==
LOC: JER 18:02
PROC: 3E0333Z Introduction of Anti-inflammatory into Peripheral Vein, Percutaneous Approach (ICD-10-PCS; principal; 2022-02-20)
PROC: 3E013VG Introduction of Insulin into Subcutaneous Tissue, Percutaneous Approach (ICD-10-PCS; 2022-02-20)
DX: R73.9 Hyperglycemia, unspecified (principal)
CPT/HCPCS: 0241U-QW; 36415; 71045-TC-FY; 80053; 81003; 82010; 82803; 82962; 83690; 83735; 83930; 84100; 84484; 85025; 85610; 85730; 87086; 93005; 93010; 99285-25

== ENCOUNTER 2022-02-23 17:42 | Emergency (ER) | payer OTHER ==
[2022-02-23 17:55] VITALS: BP 110/75; PULSE 104; RESP 20; TEMP 97.3; BMI 25.4
== END 2022-02-23 19:04 | disposition left against medical advice (07) ==
LOC: JER 17:42
DX: R73.9 Hyperglycemia, unspecified (principal)
CPT/HCPCS: 82962; 99282-25

== ENCOUNTER 2022-02-26 00:42 | Observation (INO) | payer OTHER ==
[2022-02-26 00:50] VITALS: BMI 25.4
[2022-02-26] MEDS ORDERED: LACTATED RINGERS SOLUTION 1000 ML INFUS.BAG IV ONE (01:15)
[2022-02-26 03:05] LABS: BASO % 0.4 % (0-2.0); EOS % 0.2 % (0-4.5); HEMATOCRIT 37.8 % (32.4-45.2); HEMOGLOBIN 11.8 GM/dL (10.7-15.3); LYMPH % 18.1 % (8-40); MCH 26.8 pg (25.7-33.7); MCHC 31.2 g/dl (32.0-36.0); MEAN CELL VOLUME 85.9 fl (80-96); MEAN PLT VOLUME 10.1 fl (7.5-11.1); MONO % 10.8 % (3.8-10.2); NEUT % 70.5 % (42.8-82.8); PLATELET COUNT 275 10^3/uL (134-434); RDW 13.8 % (11.6-15.6); WHITE BLOOD COUNT 6.2 K/mm3 (4.0-10.0)
[2022-02-26 03:06] LABS: VENOUS BASE EXCESS -1.2 mmol/L (-2-2); VENOUS O2 SATURATION 61.6 % (70-80); VENOUS PCO2 41.5 mmHg (38-52); VENOUS PH 7.379 (7.310-7.410)
[2022-02-26 03:24] LABS: CHLORIDE 85 mmol/L (98-107); HCG,QUALITATIVE URINE Negative; SODIUM 123 mmol/L (136-145)
[2022-02-26 03:35] LABS: ALBUMIN 3.5 g/dl (3.4-5.0); ALK PHOS 60 U/L (45-117); ANION GAP 15 MMOL/L (8-16); BILIRUBIN,TOTAL 0.3 mg/dL (0.2-1); BLOOD UREA NITROGEN 14.6 mg/dL (7-18); CALCIUM 8.4 mg/dL (8.5-10.1); CO2 23 mmol/L (21-32); GLUCOSE,RANDOM 981 mg/dL (74-106); SGOT/AST 6 U/L (15-37); SGPT/ALT 20 U/L (13-61); TOT PROT 6.6 g/dl (6.4-8.2)
[2022-02-26] MEDS ORDERED: SODIUM CHLORIDE 0.9% 500 ML INFUS.BAG IV ONE ×2 (03:42→05:19)
[2022-02-26 04:03] LABS: URINE APPEARANCE CLEAR; URINE BILIRUBIN NEGATIVE (NEGATIVE); URINE COLOR YELLOW; URINE GLUCOSE (UA) 3+ (NEGATIVE); URINE KETONE TRACE (NEGATIVE); URINE LEUK ESTERASE NEGATIVE (NEGATIVE); URINE NITRITE NEGATIVE (NEGATIVE); URINE PROTEIN NEGATIVE (NEGATIVE); URINE UROBILINOGEN 0.2 mg/dL (0.2-1.0)
[2022-02-26] MEDS ORDERED: INSULIN REGULAR HUMAN 100 UNITS/ML *VIAL SQ ONE (07:14)
[2022-02-26] MEDS ORDERED: ACETAMINOPHEN 500 MG TABLET (FP) PO ONE (09:32)
[2022-02-26] MEDS ORDERED: ACETAMINOPHEN 500 MG TABLET (FP) ONE (12:30)
[2022-02-26] MEDS: LACTATED RINGERS SOLUTION 1,000 ML IV SCH (13:06)
[2022-02-26] MEDS: INSULIN SLIDING SCALE (NOVOLOG) 1 VIAL SQ SCH ×3 (13:06→21:48)
[2022-02-26 13:50] LABS: CALCIUM 7.7 mg/dL (8.5-10.1)
[2022-02-26 13:51] LABS: BLOOD UREA NITROGEN 6.2 mg/dL (7-18)
[2022-02-26 13:54] LABS: CREATININE 0.4 mg/dL (0.55-1.3)
[2022-02-26] MEDS ORDERED: INSULIN (LEVEMIR) 100 UNITS/ML UNITS SQ SCH (22:00)
[2022-02-27 02:29] VITALS: RESP 18
[2022-02-27] MEDS: INSULIN SLIDING SCALE (NOVOLOG) 1 VIAL SQ SCH ×2 (06:14→11:47)
[2022-02-27] MEDS ORDERED: ENOXAPARIN NA (PORCINE) 40 MG/0.4 ML DISP.SYRIN SQ SCH (10:00)
[2022-02-27] MEDS: LACTATED RINGERS SOLUTION 1,000 ML IV SCH (10:15)
[2022-02-27 13:00] LABS: BASO % 0.5 % (0-2.0); EOS % 0.5 % (0-4.5); HEMATOCRIT 39.3 % (32.4-45.2); HEMOGLOBIN 12.7 GM/dL (10.7-15.3); LYMPH % 26.8 % (8-40); MCH 26.7 pg (25.7-33.7); MCHC 32.3 g/dl (32.0-36.0); MEAN CELL VOLUME 82.8 fl (80-96); MEAN PLT VOLUME 9.5 fl (7.5-11.1); MONO % 5.6 % (3.8-10.2); NEUT % 66.6 % (42.8-82.8); PLATELET COUNT 278 10^3/uL (134-434); RBC 4.74 M/mm3 (3.60-5.2); RDW 13.6 % (11.6-15.6); WHITE BLOOD COUNT 7.5 K/mm3 (4.0-10.0)
[2022-02-27 13:23] LABS: ALBUMIN 3.1 g/dl (3.4-5.0); BLOOD UREA NITROGEN 7.8 mg/dL (7-18); MAGNESIUM 1.6 mg/dL (1.8-2.4)
[2022-02-27] MEDS ORDERED: MAGNESIUM OXIDE 400 MG TABLET (FP) PO ONE (13:24)
[2022-02-27 13:26] LABS: CREATININE 0.5 mg/dL (0.55-1.3)
[2022-02-27 13:27] LABS: BILIRUBIN,TOTAL 0.2 mg/dL (0.2-1); TOT PROT 6.3 g/dl (6.4-8.2)
[2022-02-27 13:29] LABS: CALCIUM 8.9 mg/dL (8.5-10.1)
[2022-02-27 13:35] VITALS: BP 119/68; PULSE 72; TEMP 97.8
== END 2022-02-27 13:37 | disposition home or self-care (01) ==
LOC: JER 00:42 → INTOOBSV 03:54 → UNDOADMOB 03:54 → JERBED 03:54 → J8W 15:40
PROVIDERS: ADMIT Internal Medicine; ATTEND Nurse Practitioner Family
PROC: 3E013VG Introduction of Insulin into Subcutaneous Tissue, Percutaneous Approach (ICD-10-PCS; principal; 2022-02-26)
PROC: 3E0337Z Introduction of Electrolytic and Water Balance Substance into Peripheral Vein, Percutaneous Approach (ICD-10-PCS; 2022-02-26)
DX: U07.1 COVID-19 (principal); E11.65 Type 2 diabetes mellitus with hyperglycemia; Z29.8 Encounter for other specified prophylactic measures; J45.909 Unspecified asthma, uncomplicated; R53.1 Weakness; Z59.00 Homelessness unspecified
CPT/HCPCS: 0241U-QW; 36415; 71045-TC-FY; 80048; 80053; 81003; 82010; 82803; 82962; 83036; 83735; 84100; 84484; 84703; 85025; 87086; 93005; 93010; 96360; 96372; 99285-25; G0378

== ENCOUNTER 2022-05-22 19:26 | Observation (INO) | payer OTHER ==
[2022-05-22] MEDS ORDERED: SODIUM CHLORIDE 0.9% 500 ML INFUS.BAG IV ONE (23:24)
[2022-05-23 00:14] LABS: BASO % 1.1 % (0-2.0); EOS % 1.2 % (0-4.5); HEMATOCRIT 41.5 % (32.4-45.2); HEMOGLOBIN 13.4 GM/dL (10.7-15.3); MCH 26.5 pg (25.7-33.7); MCHC 32.2 g/dl (32.0-36.0); MEAN CELL VOLUME 82.5 fl (80-96); MEAN PLT VOLUME 8.8 fl (7.5-11.1); MONO % 7.5 % (3.8-10.2); NEUT % 56.2 % (42.8-82.8); PLATELET COUNT 391 10^3/uL (134-434); RBC 5.03 M/mm3 (3.60-5.2); WHITE BLOOD COUNT 6.5 K/mm3 (4.0-10.0)
[2022-05-23 00:20] LABS: VENOUS BASE EXCESS -2.4 mmol/L (-2-2); VENOUS O2 SATURATION 38.5 % (70-80); VENOUS PCO2 47.4 mmHg (38-52); VENOUS PH 7.322 (7.310-7.410)
[2022-05-23 00:33] LABS: CHLORIDE 89 mmol/L (98-107); SODIUM 125 mmol/L (136-145)
[2022-05-23 00:35] LABS: ANION GAP 8 MMOL/L (8-16); CALCIUM 9.2 mg/dL (8.5-10.1); CO2 28 mmol/L (21-32)
[2022-05-23 00:36] LABS: ALBUMIN 3.7 g/dl (3.4-5.0); MAGNESIUM 1.8 mg/dL (1.8-2.4)
[2022-05-23 00:38] LABS: SGOT/AST 12 U/L (15-37); SGPT/ALT 19 U/L (13-61)
[2022-05-23 00:40] LABS: BILIRUBIN,TOTAL 0.3 mg/dL (0.2-1); TOT PROT 7.4 g/dl (6.4-8.2)
[2022-05-23 00:41] LABS: ALK PHOS 61 U/L (45-117)
[2022-05-23] MEDS ORDERED: SODIUM CHLORIDE 0.9% 500 ML INFUS.BAG IV ONE ×2 (00:45→11:31)
[2022-05-23 00:58] LABS: GLUCOSE,RANDOM 863 mg/dL (74-106)
[2022-05-23 01:40] LABS: URINE APPEARANCE CLEAR; URINE BILIRUBIN NEGATIVE (NEGATIVE); URINE COLOR YELLOW; URINE GLUCOSE (UA) 3+ (NEGATIVE); URINE KETONE NEGATIVE (NEGATIVE); URINE LEUK ESTERASE NEGATIVE (NEGATIVE); URINE NITRITE NEGATIVE (NEGATIVE); URINE PROTEIN NEGATIVE (NEGATIVE); URINE UROBILINOGEN 0.2 mg/dL (0.2-1.0)
[2022-05-23] MEDS ORDERED: INSULIN (NOVOLOG) ASPART 100 UNITS/ML 10ML VIAL SQ ONE (03:23)
[2022-05-23] MEDS ORDERED: INSULIN (NOVOLOG) ASPART 100 UNITS/ML 10ML VIAL ONE ×2 (03:38→10:39)
[2022-05-23] MEDS: SODIUM CHLORIDE 1,000 ML IV SCH ×2 (04:43→11:56)
[2022-05-23] MEDS ORDERED: POTASSIUM CHLORIDE TABS 10 MEQ TABLET.ER (FP) PO ONE (05:03)
[2022-05-23 07:08] LABS: CALCIUM 8.6 mg/dL (8.5-10.1); MAGNESIUM 1.5 mg/dL (1.8-2.4)
[2022-05-23 07:09] LABS: BLOOD UREA NITROGEN 6.4 mg/dL (7-18)
[2022-05-23 07:12] LABS: CREATININE 0.5 mg/dL (0.55-1.3); PHOSPHOROUS 2.8 mg/dL (2.5-4.9)
[2022-05-23] MEDS ORDERED: POTASSIUM CHLORIDE TABS 20 MEQ TABLET.ER (FP) PO ONE ×2 (08:00→08:13)
[2022-05-23] MEDS: INSULIN SLIDING SCALE (NOVOLOG) 1 VIAL SQ SCH ×3 (08:05→17:16)
[2022-05-23] MEDS ORDERED: INSULIN (LEVEMIR) 100 UNITS/ML UNITS SQ SCH ×2 (10:00→22:00)
[2022-05-23] MEDS ORDERED: INSULIN (LEVEMIR) 100 UNITS/ML UNITS SQ ONE (11:34)
[2022-05-23] MEDS ORDERED: SODIUM CHLORIDE 1,000 ML IV SCH (11:45)
[2022-05-23] MEDS: ENOXAPARIN NA (PORCINE) 40 MG/0.4 ML DISP.SYRIN SQ SCH (11:57)
[2022-05-23] MEDS: INSULIN (NOVOLOG) ASPART 100 UNITS/ML 10ML VIAL SQ SCH (17:16)
[2022-05-23 19:09] VITALS: BMI 21.7
[2022-05-24] MEDS: INSULIN (NOVOLOG) ASPART 100 UNITS/ML 10ML VIAL SQ SCH ×3 (07:04→17:25)
[2022-05-24] MEDS: INSULIN SLIDING SCALE (NOVOLOG) 1 VIAL SQ SCH ×3 (07:04→17:25)
[2022-05-24 08:07] VITALS: TEMP 98.1
[2022-05-24 08:32] LABS: CALCIUM 8.7 mg/dL (8.5-10.1)
[2022-05-24 08:33] LABS: BLOOD UREA NITROGEN 8.8 mg/dL (7-18); MAGNESIUM 1.7 mg/dL (1.8-2.4)
[2022-05-24 08:36] LABS: CREATININE 0.6 mg/dL (0.55-1.3); PHOSPHOROUS 2.9 mg/dL (2.5-4.9)
[2022-05-24] MEDS ORDERED: INSULIN (LEVEMIR) 100 UNITS/ML UNITS SQ SCH (10:25)
[2022-05-24] MEDS: ENOXAPARIN NA (PORCINE) 40 MG/0.4 ML DISP.SYRIN SQ SCH (10:44)
[2022-05-24 14:52] VITALS: BP 138/85; PULSE 76; RESP 18
== END 2022-05-24 17:45 | disposition home or self-care (01) ==
LOC: JER 19:26 → JERBED 05-23 02:40 → J7W 05-23 09:44
PROVIDERS: ADMIT Internal Medicine; ATTEND Internal Medicine
PROC: 3E0337Z Introduction of Electrolytic and Water Balance Substance into Peripheral Vein, Percutaneous Approach (ICD-10-PCS; principal; 2022-05-23)
PROC: 3E013VG Introduction of Insulin into Subcutaneous Tissue, Percutaneous Approach (ICD-10-PCS; 2022-05-23)
PROC: 3E013GC Introduction of Other Therapeutic Substance into Subcutaneous Tissue, Percutaneous Approach (ICD-10-PCS; 2022-05-23)
DX: E11.65 Type 2 diabetes mellitus with hyperglycemia (principal); E86.0 Dehydration; J45.909 Unspecified asthma, uncomplicated; F17.210 Nicotine dependence, cigarettes, uncomplicated
CPT/HCPCS: 0241U-QW; 36415; 80048; 80053; 81003; 82010; 82803; 82962; 83036; 83735; 84100; 85025; 87086; 93005; 93010; 96372; 99285-25; G0378

== ENCOUNTER 2022-06-09 16:56 | Inpatient (IN) | payer OTHER ==
[2022-06-09 17:06] VITALS: BMI 21.5
[2022-06-09] MEDS ORDERED: SODIUM CHLORIDE 0.9% 500 ML INFUS.BAG IV ONE (17:17)
[2022-06-09 17:53] LABS: VENOUS BASE EXCESS 0.4 mmol/L (-2-2); VENOUS O2 SATURATION 91.4 % (70-80); VENOUS PCO2 39.8 mmHg (38-52); VENOUS PH 7.415 (7.310-7.410)
[2022-06-09 17:55] LABS: BASO % 0.7 % (0-2.0); EOS % 2.5 % (0-4.5); HEMATOCRIT 34.7 % (32.4-45.2); HEMOGLOBIN 11.5 GM/dL (10.7-15.3); LYMPH % 32.8 % (8-40); MCH 26.9 pg (25.7-33.7); MCHC 33.1 g/dl (32.0-36.0); MEAN CELL VOLUME 81.3 fl (80-96); MEAN PLT VOLUME 8.7 fl (7.5-11.1); MONO % 9.8 % (3.8-10.2); NEUT % 54.2 % (42.8-82.8); PLATELET COUNT 358 10^3/uL (134-434); RBC 4.27 M/mm3 (3.60-5.2); RDW 14.3 % (11.6-15.6); WHITE BLOOD COUNT 6.2 K/mm3 (4.0-10.0)
[2022-06-09 18:12] LABS: PH,URINE 7.5 (5.0-8.0); URINE APPEARANCE CLEAR; URINE BILIRUBIN NEGATIVE (NEGATIVE); URINE COLOR YELLOW; URINE GLUCOSE (UA) 3+ (NEGATIVE); URINE KETONE 1+ (NEGATIVE); URINE LEUK ESTERASE NEGATIVE (NEGATIVE); URINE NITRITE NEGATIVE (NEGATIVE); URINE PROTEIN NEGATIVE (NEGATIVE); URINE UROBILINOGEN 0.2 mg/dL (0.2-1.0)
[2022-06-09 18:21] LABS: CHLORIDE 94 mmol/L (98-107); SODIUM 130 mmol/L (136-145)
[2022-06-09 18:23] LABS: CALCIUM 8.9 mg/dL (8.5-10.1)
[2022-06-09 18:24] LABS: ALBUMIN 3.4 g/dl (3.4-5.0); ANION GAP 8 MMOL/L (8-16); BLOOD UREA NITROGEN 13.5 mg/dL (7-18); CO2 27 mmol/L (21-32)
[2022-06-09 18:26] LABS: SGPT/ALT 22 U/L (13-61)
[2022-06-09 18:27] LABS: CREATININE 0.9 mg/dL (0.55-1.3); SGOT/AST 9 U/L (15-37)
[2022-06-09 18:28] LABS: BILIRUBIN,TOTAL 0.3 mg/dL (0.2-1); TOT PROT 6.4 g/dl (6.4-8.2)
[2022-06-09 18:30] LABS: ALK PHOS 55 U/L (45-117)
[2022-06-09 18:34] LABS: GLUCOSE,RANDOM 660 mg/dL (74-106)
[2022-06-09] MEDS ORDERED: INSULIN (NOVOLOG) ASPART 100 UNITS/ML 10ML VIAL SQ ONE (19:43)
[2022-06-09] MEDS ORDERED: AZITHROMYCIN IVPB 500 MG in DEXTROSE 5%-WATER - 250 ML IVPB ONE (20:31)
[2022-06-09] MEDS ORDERED: CEFTRIAXONE 1 GM/50 ML BAG ONE (20:53)
[2022-06-09] MEDS ORDERED: AZITHROMYCIN IVPB 500 MG/250 ML BAG IVPB ONE (20:53)
[2022-06-09] MEDS ORDERED: ACETAMINOPHEN 325 MG TABLET (FP) PO PRN (22:15)
[2022-06-09] MEDS ORDERED: DOCUSATE SODIUM 100 MG CAPSULE (FP) PO PRN (22:15)
[2022-06-09] MEDS ORDERED: ALBUTEROL SO4 HFA INHALER IH PRN (22:24)
[2022-06-10] MEDS ORDERED: ACETAMINOPHEN 325 MG TABLET (FP) ONE (03:10)
[2022-06-10] MEDS: BUDESONIDE/FORMETEROL FUMARATE 160/4.5 mcg INHALER IH SCH ×3 (07:27→23:40)
[2022-06-10 07:45] LABS: BASO % 0.5 % (0-2.0); EOS % 2.4 % (0-4.5); HEMATOCRIT 34.5 % (32.4-45.2); HEMOGLOBIN 11.8 GM/dL (10.7-15.3); LYMPH % 27.9 % (8-40); MCH 27.4 pg (25.7-33.7); MCHC 34.2 g/dl (32.0-36.0); MEAN CELL VOLUME 80.2 fl (80-96); MEAN PLT VOLUME 9.3 fl (7.5-11.1); MONO % 6.6 % (3.8-10.2); NEUT % 62.6 % (42.8-82.8); PLATELET COUNT 358 10^3/uL (134-434); RDW 13.7 % (11.6-15.6); WHITE BLOOD COUNT 6.7 K/mm3 (4.0-10.0)
[2022-06-10 09:34] LABS: CALCIUM 8.5 mg/dL (8.5-10.1); MAGNESIUM 1.7 mg/dL (1.8-2.4)
[2022-06-10 09:38] LABS: CREATININE 0.5 mg/dL (0.55-1.3); PHOSPHOROUS 3.9 mg/dL (2.5-4.9)
[2022-06-10] MEDS ORDERED: INSULIN (LEVEMIR) 100 UNITS/ML UNITS SQ ONE (10:08)
[2022-06-10] MEDS ORDERED: HEPARIN NA (PORCINE) 5,000 UNITS/ML 1ML VIAL ONE (10:10)
[2022-06-10] MEDS: INSULIN SLIDING SCALE (NOVOLOG) 1 VIAL SQ SCH ×4 (10:10→23:20)
[2022-06-10] MEDS: HEPARIN NA (PORCINE) 5,000 UNITS/ML 1ML VIAL SQ SCH ×2 (10:11→23:20)
[2022-06-10] MEDS: INSULIN (LEVEMIR) 100 UNITS/ML UNITS SQ SCH ×2 (10:11→23:20)
[2022-06-10] MEDS ORDERED: AZITHROMYCIN IVPB 500 MG in DEXTROSE 5%-WATER - 250 ML IVPB SCH (16:00)
[2022-06-10] MEDS ORDERED: AZITHROMYCIN IVPB 500 MG/250 ML BAG IVPB ONE (16:57)
[2022-06-10] MEDS ORDERED: CEFTRIAXONE 1 GM/50 ML BAG ONE (17:49)
[2022-06-10] MEDS: CEFTRIAXONE 1 GM in DEXTROSE 5%-WATER - 50 ML IVPB SCH (18:00)
[2022-06-11] MEDS: INSULIN (LEVEMIR) 100 UNITS/ML UNITS SQ SCH (06:40)
[2022-06-11] MEDS: INSULIN SLIDING SCALE (NOVOLOG) 1 VIAL SQ SCH ×4 (06:40→21:44)
[2022-06-11] MEDS ORDERED: INSULIN (LEVEMIR) 100 UNITS/ML UNITS SQ SCH ×2 (07:43→14:30)
[2022-06-11] MEDS: HEPARIN NA (PORCINE) 5,000 UNITS/ML 1ML VIAL SQ SCH ×2 (10:17→22:16)
[2022-06-11] MEDS: CEFTRIAXONE 1 GM in DEXTROSE 5%-WATER - 50 ML IVPB SCH (10:17)
[2022-06-11] MEDS ORDERED: AZITHROMYCIN IVPB 500 MG/250 ML BAG IVPB SCH (10:22)
[2022-06-11] MEDS: BUDESONIDE/FORMETEROL FUMARATE 160/4.5 mcg INHALER IH SCH ×2 (10:33→21:45)
[2022-06-11] MEDS ORDERED: INSULIN (NOVOLOG) ASPART 100 UNITS/ML 10ML VIAL ONE ×2 (11:38→17:25)
[2022-06-12] MEDS: INSULIN (NOVOLOG) ASPART 100 UNITS/ML 10ML VIAL SQ SCH ×3 (06:37→17:11)
[2022-06-12] MEDS: INSULIN SLIDING SCALE (NOVOLOG) 1 VIAL SQ SCH ×4 (06:37→22:42)
[2022-06-12] MEDS: INSULIN (LEVEMIR) 100 UNITS/ML UNITS SQ SCH ×2 (06:38→22:41)
[2022-06-12 10:48] VITALS: RESP 18
[2022-06-12] MEDS: BUDESONIDE/FORMETEROL FUMARATE 160/4.5 mcg INHALER IH SCH ×2 (12:20→22:43)
[2022-06-12] MEDS: HEPARIN NA (PORCINE) 5,000 UNITS/ML 1ML VIAL SQ SCH ×2 (12:21→22:40)
[2022-06-13] MEDS: INSULIN (LEVEMIR) 100 UNITS/ML UNITS SQ SCH (06:43)
[2022-06-13] MEDS: INSULIN (NOVOLOG) ASPART 100 UNITS/ML 10ML VIAL SQ SCH ×3 (06:43→16:46)
[2022-06-13] MEDS: INSULIN SLIDING SCALE (NOVOLOG) 1 VIAL SQ SCH ×3 (06:43→16:45)
[2022-06-13] MEDS: HEPARIN NA (PORCINE) 5,000 UNITS/ML 1ML VIAL SQ SCH (09:03)
[2022-06-13] MEDS ORDERED: CEFTRIAXONE 1 GM in DEXTROSE 5%-WATER - 50 ML IVPB SCH (10:00)
[2022-06-13] MEDS ORDERED: AZITHROMYCIN IVPB 250 MG in DEXTROSE 5%-WATER - 250 ML IVPB SCH (10:00)
[2022-06-13 10:24] LABS: BLOOD UREA NITROGEN 9.5 mg/dL (7-18); CALCIUM 9.3 mg/dL (8.5-10.1); MAGNESIUM 1.8 mg/dL (1.8-2.4)
[2022-06-13 10:28] LABS: CREATININE 0.4 mg/dL (0.55-1.3); PHOSPHOROUS 3.7 mg/dL (2.5-4.9)
[2022-06-13] MEDS: BUDESONIDE/FORMETEROL FUMARATE 160/4.5 mcg INHALER IH SCH (11:57)
[2022-06-13] MEDS ORDERED: INSULIN (NOVOLOG) ASPART 100 UNITS/ML 10ML VIAL ONE ×2 (12:49→16:37)
[2022-06-13 13:46] VITALS: BP 113/68; PULSE 84; TEMP 98.2
== END 2022-06-13 18:18 | disposition home or self-care (01) | DRG 637 ==
LOC: JER 16:56 → JERBED 22:14 → J6S 06-10 18:39 → OBSVTOIN 06-11 10:01
PROVIDERS: ADMIT Internal Medicine; ATTEND Internal Medicine
DX: E11.65 Type 2 diabetes mellitus with hyperglycemia (principal); J18.9 Pneumonia, unspecified organism; R93.89 Abnormal findings on diagnostic imaging of other specified body structures; J45.909 Unspecified asthma, uncomplicated
CPT/HCPCS: 0241U-QW; 36415; 71045-TC-FY; 71046-TC-FY; 80048; 80053; 81003; 82010; 82803; 82962; 83735; 84100; 84703; 85025; 87086; 93005; 93010; 99285-25; G0378; J1644

== ENCOUNTER 2022-06-18 15:51 | Emergency (ER) | payer OTHER ==
[2022-06-18 16:04] VITALS: RESP 18; BMI 21.7
[2022-06-18] MEDS ORDERED: ACETAMINOPHEN 1000 MG/100 ML BAG IVPB ONE (16:33)
[2022-06-18] MEDS ORDERED: SODIUM CHLORIDE 0.9% 500 ML INFUS.BAG IV ONE (16:33)
[2022-06-18] MEDS ORDERED: ACETAMINOPHEN INJECTION 100 ML IVPB ONE (16:55)
[2022-06-18 17:18] LABS: VENOUS BASE EXCESS 0.3 mmol/L (-2-2); VENOUS O2 SATURATION 22.3 % (70-80); VENOUS PCO2 50.4 mmHg (38-52); VENOUS PH 7.343 (7.310-7.410)
[2022-06-18 17:20] LABS: BASO % 1.2 % (0-2.0); EOS % 0.8 % (0-4.5); HEMATOCRIT 37.2 % (32.4-45.2); HEMOGLOBIN 12.4 GM/dL (10.7-15.3); LYMPH % 30.9 % (8-40); MCH 27.3 pg (25.7-33.7); MCHC 33.3 g/dl (32.0-36.0); MEAN PLT VOLUME 9.5 fl (7.5-11.1); NEUT % 59.1 % (42.8-82.8); PLATELET COUNT 368 10^3/uL (134-434); RBC 4.54 M/mm3 (3.60-5.2); WHITE BLOOD COUNT 5.7 K/mm3 (4.0-10.0)
[2022-06-18 17:24] LABS: URINE APPEARANCE CLEAR; URINE BILIRUBIN NEGATIVE (NEGATIVE); URINE COLOR YELLOW; URINE GLUCOSE (UA) 3+ (NEGATIVE); URINE KETONE 1+ (NEGATIVE); URINE LEUK ESTERASE NEGATIVE (NEGATIVE); URINE NITRITE NEGATIVE (NEGATIVE); URINE PROTEIN NEGATIVE (NEGATIVE); URINE UROBILINOGEN 0.2 mg/dL (0.2-1.0)
[2022-06-18 17:47] LABS: CHLORIDE 93 mmol/L (98-107); SODIUM 128 mmol/L (136-145)
[2022-06-18 17:49] VITALS: BP 101/66; PULSE 66; TEMP 98.1
[2022-06-18 17:49] LABS: CALCIUM 9.6 mg/dL (8.5-10.1)
[2022-06-18 17:50] LABS: ALBUMIN 3.8 g/dl (3.4-5.0); ANION GAP 8 MMOL/L (8-16); BLOOD UREA NITROGEN 14.8 mg/dL (7-18); CO2 26 mmol/L (21-32)
[2022-06-18 17:53] LABS: CREATININE 0.9 mg/dL (0.55-1.3); SGOT/AST 10 U/L (15-37); SGPT/ALT 35 U/L (13-61)
[2022-06-18 17:54] LABS: BILIRUBIN,TOTAL 0.2 mg/dL (0.2-1); TOT PROT 7.4 g/dl (6.4-8.2)
[2022-06-18 17:56] LABS: ALK PHOS 64 U/L (45-117)
[2022-06-18 18:03] LABS: GLUCOSE,RANDOM 673 mg/dL (74-106)
[2022-06-18] MEDS ORDERED: INSULIN (NOVOLOG) ASPART 100 UNITS/ML 10ML VIAL SQ ONE ×2 (18:13→18:20)
[2022-06-18] MEDS ORDERED: INSULIN (NOVOLOG) ASPART 100 UNITS/ML 10ML VIAL ONE (18:28)
== END 2022-06-18 21:03 | disposition home or self-care (01) ==
LOC: JER 15:51
PROC: 3E033NZ Introduction of Analgesics, Hypnotics, Sedatives into Peripheral Vein, Percutaneous Approach (ICD-10-PCS; principal; 2022-06-18)
DX: E11.65 Type 2 diabetes mellitus with hyperglycemia (principal); E07.89 Other specified disorders of thyroid; E50.9 Vitamin A deficiency, unspecified; Z79.4 Long term (current) use of insulin; Z20.822 Contact with and (suspected) exposure to COVID-19
CPT/HCPCS: 0241U-QW; 36415; 71046-TC-FY; 80053; 81003; 82010; 82803; 82962; 83735; 84484; 84703; 85025; 85379; 87086; 93005; 93010; 99285-25

== ENCOUNTER 2022-10-07 14:25 | Emergency (ER) | payer OTHER ==
[2022-10-07 14:36] VITALS: BP 98/68; PULSE 87; RESP 10; TEMP 98; BMI 20.7
[2022-10-07] MEDS ORDERED: SODIUM CHLORIDE 0.9% 500 ML INFUS.BAG IV ONE (15:28)
[2022-10-07 16:32] LABS: VENOUS BASE EXCESS -2.6 mmol/L (-2-2); VENOUS O2 SATURATION 82.1 % (70-80); VENOUS PCO2 36.4 mmHg (38-52); VENOUS PH 7.394 (7.310-7.410)
[2022-10-07 16:49] LABS: EOS % 1.9 % (0-4.5); HEMATOCRIT 38.1 % (32.4-45.2); HEMOGLOBIN 12.9 GM/dL (10.7-15.3); LYMPH % 29.4 % (8-40); MCH 27.4 pg (25.7-33.7); MCHC 33.7 g/dl (32.0-36.0); MEAN CELL VOLUME 81.2 fl (80-96); MEAN PLT VOLUME 8.6 fl (7.5-11.1); NEUT % 61.7 % (42.8-82.8); PLATELET COUNT 431 10^3/uL (134-434); RBC 4.69 M/mm3 (3.60-5.2); RDW 14.4 % (11.6-15.6); WHITE BLOOD COUNT 7.5 K/mm3 (4.0-10.0)
[2022-10-07 17:01] LABS: CHLORIDE 102 mmol/L (98-107); POTASSIUM 4.5 mmol/L (3.5-5.1); SODIUM 135 mmol/L (136-145)
[2022-10-07 17:05] LABS: ANION GAP 8 MMOL/L (8-16); BLOOD UREA NITROGEN 11.4 mg/dL (7-18); CALCIUM 9.4 mg/dL (8.5-10.1); CO2 25 mmol/L (21-32); MAGNESIUM 1.9 mg/dL (1.8-2.4)
[2022-10-07 17:06] LABS: ALBUMIN 3.4 g/dl (3.4-5.0)
[2022-10-07 17:08] LABS: CREATININE 0.7 mg/dL (0.55-1.3); SGOT/AST 8 U/L (15-37); SGPT/ALT 22 U/L (13-61)
[2022-10-07 17:10] LABS: BILIRUBIN,TOTAL 0.2 mg/dL (0.2-1)
[2022-10-07 17:11] LABS: ALK PHOS 64 U/L (45-117)
[2022-10-07 17:20] LABS: GLUCOSE,RANDOM 535 mg/dL (74-106)
[2022-10-07] MEDS ORDERED: INSULIN (NOVOLOG) ASPART 100 UNITS/ML 10ML VIAL SQ ONE (17:23)
== END 2022-10-07 19:12 | disposition left against medical advice (07) ==
LOC: JER 14:25
DX: E11.9 Type 2 diabetes mellitus without complications (principal); M79.644 Pain in right finger(s); R22.31 Localized swelling, mass and lump, right upper limb
CPT/HCPCS: 36415; 73130-TC-RT-FY; 80053; 82803; 82962; 83735; 84703; 85025; 99284-25

== ENCOUNTER 2022-10-11 15:30 | Inpatient (IN) | payer OTHER ==
[2022-10-11 15:41] VITALS: BMI 22.6
[2022-10-11] MEDS ORDERED: SODIUM CHLORIDE 0.9% 500 ML INFUS.BAG IV ONE ×2 (16:12→18:20)
[2022-10-11] MEDS ORDERED: ACETAMINOPHEN 1000 MG/100 ML BAG IVPB ONE (16:12)
[2022-10-11] MEDS ORDERED: ACETAMINOPHEN INJECTION 100 ML IVPB ONE (16:49)
[2022-10-11] MEDS ORDERED: INSULIN (NOVOLOG) ASPART 100 UNITS/ML 10ML VIAL SQ ONE (17:06)
[2022-10-11] MEDS ORDERED: INSULIN (NOVOLOG) ASPART 100 UNITS/ML 10ML VIAL ONE (17:14)
[2022-10-11] MEDS ORDERED: VANCOMYCIN 1 GM PREMIX - 1 GM/200 ML BAG IVPB ONE (17:16)
[2022-10-11] MEDS ORDERED: PIPERACILLIN/TAZOB 3.375 GM 3.375 GM in DEXTROSE 5%-WATER - 50 ML IVPB ONE (17:17)
[2022-10-11] MEDS ORDERED: PIPERACILLIN/TAZOB 3.375 GM 3.375 GM/50 ML BAG IVPB ONE ×2 (17:19→22:32)
[2022-10-11 17:43] LABS: BASO % 0.4 % (0-2.0); EOS % 1.8 % (0-4.5); HEMOGLOBIN 11.8 GM/dL (10.7-15.3); LYMPH % 20.9 % (8-40); MCH 26.8 pg (25.7-33.7); MCHC 32.9 g/dl (32.0-36.0); MEAN CELL VOLUME 81.4 fl (80-96); MEAN PLT VOLUME 8.8 fl (7.5-11.1); MONO % 6.1 % (3.8-10.2); NEUT % 70.8 % (42.8-82.8); PLATELET COUNT 344 10^3/uL (134-434); RBC 4.42 M/mm3 (3.60-5.2); RDW 13.8 % (11.6-15.6)
[2022-10-11 17:46] LABS: EPI CELLS 5 /uL (0-25.1); HYALINE CASTS 0 /uL (0-3.1); URINE APPEARANCE CLEAR; URINE BACTERIA 50 /uL (0-1359); URINE BILIRUBIN NEGATIVE (NEGATIVE); URINE COLOR YELLOW; URINE GLUCOSE (UA) 3+ (NEGATIVE); URINE KETONE NEGATIVE (NEGATIVE); URINE LEUK ESTERASE NEGATIVE (NEGATIVE); URINE NITRITE NEGATIVE (NEGATIVE); URINE PROTEIN NEGATIVE (NEGATIVE); URINE RBC 349 /uL (0-23.9); URINE UROBILINOGEN 0.2 mg/dL (0.2-1.0); URINE WBC 14 /uL (0-25.8)
[2022-10-11] MEDS ORDERED: VANCOMYCIN/WATER FOR INJ (PEG) 1,000 MG/200 ML BAG IVPB ONE (18:03)
[2022-10-11 18:09] LABS: VENOUS BASE EXCESS -2.9 mmol/L (-2-2); VENOUS O2 SATURATION 61.2 % (70-80); VENOUS PCO2 41.1 mmHg (38-52); VENOUS PH 7.355 (7.310-7.410)
[2022-10-11 18:09] LABS: CHLORIDE 98 mmol/L (98-107); SODIUM 131 mmol/L (136-145)
[2022-10-11 18:13] LABS: BLOOD UREA NITROGEN 10.7 mg/dL (7-18)
[2022-10-11 18:14] LABS: ALBUMIN 3.3 g/dl (3.4-5.0); ANION GAP 9 MMOL/L (8-16); CALCIUM 8.9 mg/dL (8.5-10.1); CO2 24 mmol/L (21-32)
[2022-10-11 18:17] LABS: SGPT/ALT 20 U/L (13-61)
[2022-10-11 18:18] LABS: CREATININE 0.8 mg/dL (0.55-1.3); PHOSPHOROUS 3.7 mg/dL (2.5-4.9); SGOT/AST 3 U/L (15-37)
[2022-10-11 18:19] LABS: BILIRUBIN,TOTAL 0.2 mg/dL (0.2-1); TOT PROT 6.4 g/dl (6.4-8.2)
[2022-10-11 18:20] LABS: ALK PHOS 61 U/L (45-117)
[2022-10-11] MEDS ORDERED: POTASSIUM CHLORIDE ORAL LIQUID 20 MEQ/15 ML PO ONE (18:22)
[2022-10-11 18:24] LABS: GLUCOSE,RANDOM 660 mg/dL (74-106); MAGNESIUM 1.8 mg/dL (1.8-2.4)
[2022-10-11] MEDS ORDERED: POTASSIUM CHLORIDE ORAL LIQUID 20 MEQ/15 ML ONE (18:28)
[2022-10-11] MEDS ORDERED: KETOROLAC TROMETHAMINE 15 MG/ML VIAL IVPUSH ONE (18:56)
[2022-10-11] MEDS ORDERED: KETOROLAC TROMETHAMINE 15 MG/ML VIAL ONE (19:00)
[2022-10-11] MEDS ORDERED: DOCUSATE SODIUM 100 MG CAPSULE (FP) PO PRN (20:31)
[2022-10-11] MEDS ORDERED: INSULIN SLIDING SCALE (NOVOLOG) 1 VIAL SQ SCH (21:00)
[2022-10-11] MEDS: SODIUM CHLORIDE 1,000 ML IV SCH (21:17)
[2022-10-11] MEDS: INSULIN SLIDING SCALE (NOVOLOG) 1 VIAL SQ SCH (21:17)
[2022-10-11] MEDS: PIPERACILLIN/TAZOB 3.375 GM 3.375 GM in DEXTROSE 5%-WATER - 50 ML IVPB SCH (22:32)
[2022-10-12] MEDS: INSULIN SLIDING SCALE (NOVOLOG) 1 VIAL SQ SCH ×6 (03:27→22:08)
[2022-10-12] MEDS: PIPERACILLIN/TAZOB 3.375 GM 3.375 GM in DEXTROSE 5%-WATER - 50 ML IVPB SCH ×7 (05:20→22:10)
[2022-10-12] MEDS: VANCOMYCIN/WATER FOR INJ (PEG) 1,000 MG/200 ML BAG IVPB SCH ×2 (05:31→18:30)
[2022-10-12] MEDS ORDERED: ALBUTEROL SO4 HFA INHALER IH PRN (08:04)
[2022-10-12 08:55] LABS: INR 0.94 (0.83-1.09); PROTHROMBIN TIME (PATIENT) 10.9 SEC (9.7-13.0)
[2022-10-12 08:58] LABS: ACTIVATED PTT 26.7 SECONDS (25.2-36.5)
[2022-10-12 09:03] LABS: BASO % 0.5 % (0-2.0); EOS % 3.3 % (0-4.5); HEMOGLOBIN 11.5 GM/dL (10.7-15.3); LYMPH % 31.2 % (8-40); MCH 26.7 pg (25.7-33.7); MCHC 32.8 g/dl (32.0-36.0); MEAN CELL VOLUME 81.4 fl (80-96); MEAN PLT VOLUME 8.5 fl (7.5-11.1); MONO % 5.9 % (3.8-10.2); NEUT % 59.1 % (42.8-82.8); PLATELET COUNT 342 10^3/uL (134-434); RDW 13.8 % (11.6-15.6); WHITE BLOOD COUNT 4.9 K/mm3 (4.0-10.0)
[2022-10-12 09:20] LABS: POTASSIUM 4.1 mmol/L (3.5-5.1)
[2022-10-12 09:22] LABS: CALCIUM 8.3 mg/dL (8.5-10.1)
[2022-10-12 09:24] LABS: BLOOD UREA NITROGEN 6.2 mg/dL (7-18)
[2022-10-12 09:25] LABS: MAGNESIUM 1.7 mg/dL (1.8-2.4)
[2022-10-12 09:27] LABS: CREATININE 0.5 mg/dL (0.55-1.3)
[2022-10-12 09:28] LABS: PHOSPHOROUS 2.4 mg/dL (2.5-4.9)
[2022-10-12] MEDS: BUDESONIDE/FORMETEROL FUMARATE 160/4.5 mcg INHALER IH SCH ×2 (09:32→22:11)
[2022-10-12] MEDS ORDERED: INSULIN (NOVOLOG) ASPART 100 UNITS/ML 10ML VIAL ONE (17:06)
[2022-10-12] MEDS ORDERED: INSULIN (LEVEMIR) 100 UNITS/ML UNITS SQ SCH (22:00)
[2022-10-12] MEDS: INSULIN (LEVEMIR) 100 UNITS/ML UNITS SQ SCH (22:08)
[2022-10-12] MEDS: SODIUM CHLORIDE 1,000 ML IV SCH (22:10)
[2022-10-13] MEDS: PIPERACILLIN/TAZOB 3.375 GM 3.375 GM in DEXTROSE 5%-WATER - 50 ML IVPB SCH ×4 (04:08→20:21)
[2022-10-13] MEDS: INSULIN (LEVEMIR) 100 UNITS/ML UNITS SQ SCH (06:36)
[2022-10-13] MEDS: INSULIN SLIDING SCALE (NOVOLOG) 1 VIAL SQ SCH ×3 (06:37→17:41)
[2022-10-13] MEDS: KETOROLAC TROMETHAMINE 15 MG/ML VIAL IVPUSH PRN ×2 (09:52→16:45)
[2022-10-13] MEDS: BUDESONIDE/FORMETEROL FUMARATE 160/4.5 mcg INHALER IH SCH ×2 (09:59→21:48)
[2022-10-13] MEDS: VANCOMYCIN 1,000 MG in DEXTROSE 5%-WATER - 250 ML IVPB SCH (12:02)
[2022-10-13] MEDS ORDERED: INSULIN (NOVOLOG) ASPART 100 UNITS/ML 10ML VIAL ONE (12:07)
[2022-10-13] MEDS: SODIUM CHLORIDE 1,000 ML IV SCH (18:09)
[2022-10-13] MEDS: VANCOMYCIN/WATER FOR INJ (PEG) 1,000 MG/200 ML BAG IVPB SCH (18:09)
[2022-10-13 20:21] VITALS: RESP 18
[2022-10-14] MEDS: INSULIN SLIDING SCALE (NOVOLOG) 1 VIAL SQ SCH ×5 (00:58→22:28)
[2022-10-14] MEDS: INSULIN (LEVEMIR) 100 UNITS/ML UNITS SQ SCH ×2 (00:58→06:24)
[2022-10-14] MEDS: SODIUM CHLORIDE 1,000 ML IV SCH (00:58)
[2022-10-14] MEDS: PIPERACILLIN/TAZOB 3.375 GM 3.375 GM in DEXTROSE 5%-WATER - 50 ML IVPB SCH ×4 (04:55→22:00)
[2022-10-14] MEDS: BUDESONIDE/FORMETEROL FUMARATE 160/4.5 mcg INHALER IH SCH ×2 (09:23→22:30)
[2022-10-14] MEDS ORDERED: INSULIN (NOVOLOG) ASPART 100 UNITS/ML 10ML VIAL ONE ×3 (12:14→22:11)
[2022-10-14] MEDS: VANCOMYCIN/WATER FOR INJ (PEG) 1,000 MG/200 ML BAG IVPB SCH (18:04)
[2022-10-14] MEDS ORDERED: INSULIN (LEVEMIR) 100 UNITS/ML UNITS SQ SCH ×2 (19:43→22:00)
[2022-10-14] MEDS: KETOROLAC TROMETHAMINE 15 MG/ML VIAL IVPUSH PRN (23:10)
[2022-10-15] MEDS: SODIUM CHLORIDE 1,000 ML IV SCH (00:23)
[2022-10-15] MEDS: PIPERACILLIN/TAZOB 3.375 GM 3.375 GM in DEXTROSE 5%-WATER - 50 ML IVPB SCH ×2 (02:37→10:23)
[2022-10-15] MEDS: INSULIN SLIDING SCALE (NOVOLOG) 1 VIAL SQ SCH ×2 (06:35→12:17)
[2022-10-15] MEDS ORDERED: INSULIN (LEVEMIR) 100 UNITS/ML UNITS SQ SCH (07:00)
[2022-10-15 09:03] LABS: HEMATOCRIT 35.1 % (32.4-45.2); HEMOGLOBIN 11.5 GM/dL (10.7-15.3); MCH 26.8 pg (25.7-33.7); MCHC 32.6 g/dl (32.0-36.0); MEAN PLT VOLUME 9.5 fl (7.5-11.1); PLATELET COUNT 353 10^3/uL (134-434); RBC 4.28 M/mm3 (3.60-5.2); RDW 13.9 % (11.6-15.6)
[2022-10-15 09:20] LABS: POTASSIUM 3.7 mmol/L (3.5-5.1)
[2022-10-15 09:25] LABS: CALCIUM 8.8 mg/dL (8.5-10.1)
[2022-10-15 09:28] LABS: CREATININE 0.4 mg/dL (0.55-1.3)
[2022-10-15 09:29] LABS: BILIRUBIN,TOTAL 0.2 mg/dL (0.2-1); TOT PROT 5.9 g/dl (6.4-8.2)
[2022-10-15] MEDS: BUDESONIDE/FORMETEROL FUMARATE 160/4.5 mcg INHALER IH SCH (10:24)
[2022-10-15 11:11] VITALS: BP 128/85; PULSE 80; TEMP 98
[2022-10-15] MEDS ORDERED: INSULIN (NOVOLOG) ASPART 100 UNITS/ML 10ML VIAL ONE (12:13)
== END 2022-10-15 12:47 | disposition home or self-care (01) | DRG 383 ==
LOC: JER 15:30 → JERBED 18:39 → J8W 23:50 → OBSVTOIN 10-14 10:56
PROVIDERS: ADMIT Internal Medicine; ATTEND Family Medicine
DX: L03.113 Cellulitis of right upper limb (principal); E11.65 Type 2 diabetes mellitus with hyperglycemia; J45.909 Unspecified asthma, uncomplicated; Z86.73 Personal history of transient ischemic attack (TIA), and cerebral infarction without residual deficits; F17.210 Nicotine dependence, cigarettes, uncomplicated
CPT/HCPCS: 36415; 73130-TC-RT-FY; 80048; 80053; 80061; 81003; 82010; 82803; 82962; 83036; 83735; 84100; 84443; 85025; 85027; 85610; 85730; 87040; 87086; 87186; 93005; 93010; 99285-25; G0378

== ENCOUNTER 2022-10-30 17:26 | Observation (INO) | payer OTHER ==
[2022-10-30 17:37] VITALS: BMI 24.1
[2022-10-30] MEDS ORDERED: SODIUM CHLORIDE 0.9% 500 ML INFUS.BAG IV ONE (18:00)
[2022-10-30 19:11] LABS: VENOUS BASE EXCESS -1.7 mmol/L (-2-2); VENOUS O2 SATURATION 37.2 % (70-80); VENOUS PCO2 45.4 mmHg (38-52); VENOUS PH 7.345 (7.310-7.410)
[2022-10-30 19:30] LABS: BASO % 0.6 % (0-2.0); EOS % 1.6 % (0-4.5); HEMOGLOBIN 13.5 GM/dL (10.7-15.3); LYMPH % 33.9 % (8-40); MCH 26.9 pg (25.7-33.7); MCHC 32.2 g/dl (32.0-36.0); MEAN CELL VOLUME 83.4 fl (80-96); MEAN PLT VOLUME 9.6 fl (7.5-11.1); MONO % 6.9 % (3.8-10.2); PLATELET COUNT 376 10^3/uL (134-434); RBC 5.03 M/mm3 (3.60-5.2); RDW 14.1 % (11.6-15.6)
[2022-10-30 19:40] LABS: CHLORIDE 97 mmol/L (98-107); POTASSIUM 4.1 mmol/L (3.5-5.1); SODIUM 132 mmol/L (136-145)
[2022-10-30 19:42] LABS: CALCIUM 9.6 mg/dL (8.5-10.1)
[2022-10-30 19:43] LABS: ALBUMIN 4.2 g/dl (3.4-5.0); ANION GAP 10 MMOL/L (8-16); CO2 26 mmol/L (21-32)
[2022-10-30 19:46] LABS: CREATININE 0.9 mg/dL (0.55-1.3); SGOT/AST 8 U/L (15-37); SGPT/ALT 19 U/L (13-61)
[2022-10-30 19:48] LABS: BILIRUBIN,TOTAL 0.2 mg/dL (0.2-1); TOT PROT 7.7 g/dl (6.4-8.2)
[2022-10-30 19:49] LABS: ALK PHOS 67 U/L (45-117)
[2022-10-30 19:52] LABS: GLUCOSE,RANDOM 691 mg/dL (74-106)
[2022-10-30] MEDS ORDERED: SODIUM CHLORIDE 1,000 ML IV STA (20:13)
[2022-10-30 22:15] LABS: CHLORIDE 106 mmol/L (98-107); POTASSIUM 4.4 mmol/L (3.5-5.1); SODIUM 138 mmol/L (136-145)
[2022-10-30 22:17] LABS: ANION GAP 9 MMOL/L (8-16); BLOOD UREA NITROGEN 9.7 mg/dL (7-18); CALCIUM 8.3 mg/dL (8.5-10.1); CO2 22 mmol/L (21-32)
[2022-10-30 22:21] LABS: CREATININE 0.6 mg/dL (0.55-1.3); GLUCOSE,RANDOM 466 mg/dL (74-106)
[2022-10-30] MEDS ORDERED: INSULIN REGULAR HUMAN 100 UNITS/ML *VIAL IVPUSH ONE (22:27)
[2022-10-30] MEDS ORDERED: VANCOMYCIN 1,000 MG in DEXTROSE 5%-WATER - 250 ML IVPB ONE (23:18)
[2022-10-30] MEDS ORDERED: PIPERACILLIN/TAZOB 4.5 GM 4.5 GM in DEXTROSE 5%-WATER 100 ML IVPB ONE (23:18)
[2022-10-30] MEDS ORDERED: PIPERACILLIN/TAZOB 4.5 GM 4.5 GM/100 ML BAG IVPB ONE (23:33)
[2022-10-31 00:01] LABS: PH,URINE 6.5 (5.0-8.0); URINE APPEARANCE CLEAR; URINE BILIRUBIN NEGATIVE (NEGATIVE); URINE COLOR YELLOW; URINE GLUCOSE (UA) 3+ (NEGATIVE); URINE KETONE NEGATIVE (NEGATIVE); URINE LEUK ESTERASE NEGATIVE (NEGATIVE); URINE NITRITE NEGATIVE (NEGATIVE); URINE PROTEIN NEGATIVE (NEGATIVE); URINE UROBILINOGEN 0.2 mg/dL (0.2-1.0)
[2022-10-31] MEDS ORDERED: VANCOMYCIN 1 GRAM (PRE-DOCKED) 1,000 MG/250 ML BAG IVPB ONE (00:11)
[2022-10-31] MEDS ORDERED: ACETAMINOPHEN 500 MG TABLET (FP) PO ONE (00:18)
[2022-10-31] MEDS ORDERED: ACETAMINOPHEN 325 MG TABLET (FP) ONE ×2 (00:19→15:13)
[2022-10-31] MEDS ORDERED: DOCUSATE SODIUM 100 MG CAPSULE (FP) PO PRN (00:28)
[2022-10-31 01:06] LABS: POTASSIUM 3.8 mmol/L (3.5-5.1)
[2022-10-31 01:07] LABS: CALCIUM 8.4 mg/dL (8.5-10.1)
[2022-10-31 01:08] LABS: BLOOD UREA NITROGEN 9.3 mg/dL (7-18)
[2022-10-31 01:11] LABS: CREATININE 0.5 mg/dL (0.55-1.3)
[2022-10-31] MEDS ORDERED: VANCOMYCIN/WATER 1250 MG 1,250 MG/250 ML BAG IVPB SCH (06:00)
[2022-10-31] MEDS ORDERED: ACETAMINOPHEN 1000 MG/100 ML BAG IVPB PRN (06:00)
[2022-10-31] MEDS: PIPERACILLIN/TAZOB 3.375 GM 3.375 GM in DEXTROSE 5%-WATER - 50 ML IVPB SCH ×3 (06:09→22:00)
[2022-10-31] MEDS ORDERED: PIPERACILLIN/TAZOB 3.375 GM 3.375 GM/50 ML BAG IVPB ONE (06:09)
[2022-10-31 06:21] LABS: BASO % 0.5 % (0-2.0); HEMATOCRIT 37.1 % (32.4-45.2); HEMOGLOBIN 11.9 GM/dL (10.7-15.3); MCH 26.4 pg (25.7-33.7); MCHC 32.1 g/dl (32.0-36.0); MEAN CELL VOLUME 82.1 fl (80-96); MEAN PLT VOLUME 9.2 fl (7.5-11.1); MONO % 8.3 % (3.8-10.2); NEUT % 56.2 % (42.8-82.8); PLATELET COUNT 333 10^3/uL (134-434); RBC 4.52 M/mm3 (3.60-5.2); RDW 13.5 % (11.6-15.6); WHITE BLOOD COUNT 6.9 K/mm3 (4.0-10.0)
[2022-10-31 06:27] LABS: INR 0.9 (0.83-1.09); PROTHROMBIN TIME (PATIENT) 10.4 SEC (9.7-13.0)
[2022-10-31 06:29] LABS: ACTIVATED PTT 26.1 SECONDS (25.2-36.5)
[2022-10-31 06:40] LABS: CALCIUM 8.3 mg/dL (8.5-10.1)
[2022-10-31 06:44] LABS: CREATININE 0.5 mg/dL (0.55-1.3)
[2022-10-31] MEDS: INSULIN SLIDING SCALE (NOVOLOG) 1 VIAL SQ SCH ×4 (07:48→22:56)
[2022-10-31] MEDS ORDERED: VANCOMYCIN/WATER 1250 MG 1,250 MG/250 ML BAG IVPB ONE (11:27)
[2022-10-31] MEDS: VANCOMYCIN/WATER 1250 MG 1,250 MG/250 ML BAG IVPB SCH (11:36)
[2022-10-31] MEDS ORDERED: ACETAMINOPHEN INJECTION 100 ML IVPB ONE (15:21)
[2022-10-31] MEDS: INSULIN (LEVEMIR) 100 UNITS/ML UNITS SQ SCH (22:58)
[2022-11-01] MEDS: VANCOMYCIN/WATER 1250 MG 1,250 MG/250 ML BAG IVPB SCH
[2022-11-01] MEDS: PIPERACILLIN/TAZOB 3.375 GM 3.375 GM in DEXTROSE 5%-WATER - 50 ML IVPB SCH (03:00)
[2022-11-01] MEDS ORDERED: ACETAMINOPHEN 325 MG TABLET (FP) PO PRN (06:00)
[2022-11-01] MEDS: INSULIN SLIDING SCALE (NOVOLOG) 1 VIAL SQ SCH ×4 (06:10→22:08)
[2022-11-01] MEDS: INSULIN (LEVEMIR) 100 UNITS/ML UNITS SQ SCH ×2 (08:46→22:09)
[2022-11-01] MEDS ORDERED: PIPERACILLIN/TAZOB 3.375 GM 3.375 GM in DEXTROSE 5%-WATER - 50 ML IVPB SCH (09:00)
[2022-11-01 10:28] LABS: BASO % 0.4 % (0-2.0); EOS % 1.2 % (0-4.5); HEMATOCRIT 36.4 % (32.4-45.2); HEMOGLOBIN 12.2 GM/dL (10.7-15.3); LYMPH % 32.8 % (8-40); MCH 26.9 pg (25.7-33.7); MCHC 33.5 g/dl (32.0-36.0); MEAN CELL VOLUME 80.5 fl (80-96); MONO % 5.8 % (3.8-10.2); NEUT % 59.8 % (42.8-82.8); PLATELET COUNT 321 10^3/uL (134-434); RBC 4.52 M/mm3 (3.60-5.2); RDW 14.2 % (11.6-15.6); WHITE BLOOD COUNT 5.9 K/mm3 (4.0-10.0)
[2022-11-01] MEDS ORDERED: VANCOMYCIN/WATER 1250 MG 1,250 MG/250 ML BAG IVPB SCH (12:00)
[2022-11-01] MEDS ORDERED: INSULIN (NOVOLOG) ASPART 100 UNITS/ML 10ML VIAL ONE ×3 (12:28→22:07)
[2022-11-01] MEDS: CEPHALEXIN MONOHYDRATE 500 MG CAPSULE (UD) PO SCH (17:30)
[2022-11-01] MEDS: KETOROLAC TROMETHAMINE 30 MG/1 ML VIAL IVPUSH PRN (23:22)
[2022-11-02] MEDS: CEPHALEXIN MONOHYDRATE 500 MG CAPSULE (UD) PO SCH ×5 (00:30→23:28)
[2022-11-02] MEDS: INSULIN (LEVEMIR) 100 UNITS/ML UNITS SQ SCH ×2 (06:43→21:38)
[2022-11-02] MEDS: INSULIN SLIDING SCALE (NOVOLOG) 1 VIAL SQ SCH ×4 (06:45→21:42)
[2022-11-02] MEDS ORDERED: INSULIN (NOVOLOG) ASPART 100 UNITS/ML 10ML VIAL ONE ×4 (07:58→21:56)
[2022-11-02] MEDS: KETOROLAC TROMETHAMINE 30 MG/1 ML VIAL IVPUSH PRN (18:24)
[2022-11-03] MEDS: INSULIN SLIDING SCALE (NOVOLOG) 1 VIAL SQ SCH ×4 (07:01→22:25)
[2022-11-03] MEDS: INSULIN (LEVEMIR) 100 UNITS/ML UNITS SQ SCH ×2 (07:02→22:23)
[2022-11-03] MEDS: INSULIN (NOVOLOG) ASPART 100 UNITS/ML 10ML VIAL SQ SCH ×3 (07:02→17:19)
[2022-11-03] MEDS: CEPHALEXIN MONOHYDRATE 500 MG CAPSULE (UD) PO SCH ×4 (07:03→23:14)
[2022-11-03] MEDS ORDERED: INSULIN (LEVEMIR) 100 UNITS/ML UNITS SQ ONE (07:46)
[2022-11-03] MEDS: KETOROLAC TROMETHAMINE 30 MG/1 ML VIAL IVPUSH PRN ×2 (10:21→23:00)
[2022-11-04] MEDS: CEPHALEXIN MONOHYDRATE 500 MG CAPSULE (UD) PO SCH ×2 (05:36→12:09)
[2022-11-04] MEDS: INSULIN (NOVOLOG) ASPART 100 UNITS/ML 10ML VIAL SQ SCH ×2 (06:27→12:01)
[2022-11-04] MEDS: INSULIN (LEVEMIR) 100 UNITS/ML UNITS SQ SCH ×2 (06:27→07:42)
[2022-11-04] MEDS: INSULIN SLIDING SCALE (NOVOLOG) 1 VIAL SQ SCH ×2 (06:28→12:01)
[2022-11-04 12:43] VITALS: BP 104/72; PULSE 85; RESP 20; TEMP 98.3
== END 2022-11-04 12:51 | disposition home or self-care (01) ==
LOC: JER 17:26 → JERBED 23:16 → J8W 10-31 17:20
PROVIDERS: ADMIT Internal Medicine; ATTEND Family Medicine
PROC: 3E033NZ Introduction of Analgesics, Hypnotics, Sedatives into Peripheral Vein, Percutaneous Approach (ICD-10-PCS; principal; 2022-10-30)
PROC: 3E013VG Introduction of Insulin into Subcutaneous Tissue, Percutaneous Approach (ICD-10-PCS; 2022-10-30)
PROC: 3E033VG Introduction of Insulin into Peripheral Vein, Percutaneous Approach (ICD-10-PCS; 2022-10-30)
PROC: 3E03329 Introduction of Other Anti-infective into Peripheral Vein, Percutaneous Approach (ICD-10-PCS; 2022-10-30)
PROC: 3E0337Z Introduction of Electrolytic and Water Balance Substance into Peripheral Vein, Percutaneous Approach (ICD-10-PCS; 2022-10-30)
DX: L03.011 Cellulitis of right finger (principal); E11.65 Type 2 diabetes mellitus with hyperglycemia; J45.909 Unspecified asthma, uncomplicated; R56.9 Unspecified convulsions; L25.9 Unspecified contact dermatitis, unspecified cause; E86.0 Dehydration; Z86.73 Personal history of transient ischemic attack (TIA), and cerebral infarction without residual deficits; M62.81 Muscle weakness (generalized); R21 Rash and other nonspecific skin eruption; F17.200 Nicotine dependence, unspecified, uncomplicated
CPT/HCPCS: 36415; 73130-TC-RT-FY; 73218-TC-RT; 80048; 80053; 81003; 82010; 82803; 82962; 83735; 85025; 85610; 85651; 85730; 86140; 87040; 87086; 96361; 96365; 96366; 96367; 96368; 96372; 96374; 96375; 99285-25; G0378

== ENCOUNTER 2023-01-21 22:36 | Emergency (ER) | payer OTHER ==
[2023-01-21 22:52] VITALS: BP 110/75; TEMP 98.7; BMI 25.4
[2023-01-21] MEDS ORDERED: SODIUM CHLORIDE 0.9% 500 ML INFUS.BAG IV ONE (23:15)
[2023-01-21 23:45] LABS: BASO % 1.2 % (0-2.0); EOS % 1.7 % (0-4.5); HEMATOCRIT 39.4 % (32.4-45.2); HEMOGLOBIN 12.9 GM/dL (10.7-15.3); MCH 26.8 pg (25.7-33.7); MCHC 32.9 g/dl (32.0-36.0); MEAN CELL VOLUME 81.7 fl (80-96); NEUT % 47.1 % (42.8-82.8); PLATELET COUNT 319 10^3/uL (134-434); RBC 4.82 M/mm3 (3.60-5.2); RDW 13.3 % (11.6-15.6); WHITE BLOOD COUNT 6.8 K/mm3 (4.0-10.0)
[2023-01-21 23:52] LABS: POTASSIUM 3.5 mmol/L (3.5-5.1)
[2023-01-21 23:54] LABS: BLOOD UREA NITROGEN 13.4 mg/dL (7-18); CALCIUM 9.1 mg/dL (8.5-10.1); MAGNESIUM 1.8 mg/dL (1.8-2.4)
[2023-01-21 23:55] LABS: ALBUMIN 3.9 g/dl (3.4-5.0)
[2023-01-21 23:57] LABS: CREATININE 0.7 mg/dL (0.55-1.3)
[2023-01-21] MEDS ORDERED: ACETAMINOPHEN 1000 MG/100 ML BAG IVPB ONE (23:57)
[2023-01-21 23:59] LABS: BILIRUBIN,TOTAL 0.2 mg/dL (0.2-1); TOT PROT 7.4 g/dl (6.4-8.2)
[2023-01-22 00:08] LABS: VENOUS O2 SATURATION 58.9 % (70-80); VENOUS PCO2 38.4 mmHg (38-52); VENOUS PH 7.357 (7.310-7.410)
[2023-01-22 00:09] LABS: URINE APPEARANCE CLEAR; URINE BILIRUBIN NEGATIVE (NEGATIVE); URINE COLOR YELLOW; URINE GLUCOSE (UA) 3+ (NEGATIVE); URINE KETONE 1+ (NEGATIVE); URINE LEUK ESTERASE NEGATIVE (NEGATIVE); URINE NITRITE NEGATIVE (NEGATIVE); URINE PROTEIN TRACE (NEGATIVE)
[2023-01-22] MEDS ORDERED: ACETAMINOPHEN 1000 MG/100 ML BAG IVPB ONE (00:23)
[2023-01-22] MEDS ORDERED: ACETAMINOPHEN INJECTION 100 ML IVPB ONE (00:23)
[2023-01-22] MEDS ORDERED: METOCLOPRAMIDE HCL INJECTION 10 MG/2 ML VIAL IVPB ONE (00:23)
[2023-01-22] MEDS ORDERED: METOCLOPRAMIDE HCL INJECTION 10 MG/2 ML VIAL ONE (00:24)
[2023-01-22 01:11] VITALS: PULSE 102; RESP 18
== END 2023-01-22 01:20 | disposition home or self-care (01) ==
LOC: JER 22:36
PROC: 3E033NZ Introduction of Analgesics, Hypnotics, Sedatives into Peripheral Vein, Percutaneous Approach (ICD-10-PCS; principal; 2023-01-22)
PROC: 3E033GC Introduction of Other Therapeutic Substance into Peripheral Vein, Percutaneous Approach (ICD-10-PCS; 2023-01-22)
DX: E11.65 Type 2 diabetes mellitus with hyperglycemia (principal); R42 Dizziness and giddiness; R00.0 Tachycardia, unspecified; R35.89 Other polyuria; R05.9 Cough, unspecified; R68.83 Chills (without fever); R68.2 Dry mouth, unspecified; Z20.822 Contact with and (suspected) exposure to COVID-19
CPT/HCPCS: 0241U-QW; 36415; 80053; 81003; 82010; 82803; 82962; 83735; 84484; 84703; 85025; 87086; 93005; 93010; 99284-25

== ENCOUNTER 2023-03-27 18:57 | Inpatient (IN) | payer OTHER ==
[2023-03-27] MEDS ORDERED: LACTATED RINGERS SOLUTION 1000 ML INFUS.BAG IV ONE (19:30)
[2023-03-27 20:07] LABS: BASO % 0.8 % (0-2.0); EOS % 1.9 % (0-4.5); HEMATOCRIT 39.7 % (32.4-45.2); LYMPH % 29.8 % (8-40); MCH 26.5 pg (25.7-33.7); MCHC 32.7 g/dl (32.0-36.0); MEAN CELL VOLUME 81.1 fl (80-96); MONO % 6.4 % (3.8-10.2); NEUT % 61.1 % (42.8-82.8); PLATELET COUNT 338 10^3/uL (134-434); RDW 13.6 % (11.6-15.6); WHITE BLOOD COUNT 6.6 K/mm3 (4.0-10.0)
[2023-03-27 20:08] LABS: VENOUS BASE EXCESS -0.7 mmol/L (-2-2); VENOUS O2 SATURATION 93.5 % (70-80); VENOUS PCO2 33.9 mmHg (38-52); VENOUS PH 7.444 (7.310-7.410)
[2023-03-27 20:26] LABS: CHLORIDE 90 mmol/L (98-107); SODIUM 123 mmol/L (136-145)
[2023-03-27 20:28] LABS: CALCIUM 9.5 mg/dL (8.5-10.1)
[2023-03-27 20:29] LABS: ALBUMIN 3.5 g/dl (3.4-5.0); BLOOD UREA NITROGEN 13.5 mg/dL (7-18); CO2 24 mmol/L (21-32)
[2023-03-27 20:30] LABS: MAGNESIUM 2.2 mg/dL (1.8-2.4)
[2023-03-27 20:32] LABS: CREATININE 0.9 mg/dL (0.55-1.3); PHOSPHOROUS 4.8 mg/dL (2.5-4.9); SGOT/AST 50 U/L (15-37); SGPT/ALT 22 U/L (13-61)
[2023-03-27 20:33] LABS: BILIRUBIN,TOTAL 0.4 mg/dL (0.2-1); TOT PROT 7.6 g/dl (6.4-8.2)
[2023-03-27 20:34] LABS: ALK PHOS 67 U/L (45-117); INR 0.92 (0.83-1.09); PROTHROMBIN TIME (PATIENT) 10.7 SEC (9.7-13.0)
[2023-03-27 20:38] LABS: EPI CELLS 0 /uL (0-25.1); HYALINE CASTS 0 /uL (0-3.1); PH,URINE 6.5 (5.0-8.0); URINE APPEARANCE CLEAR; URINE BACTERIA 4 /uL (0-1359); URINE BILIRUBIN NEGATIVE (NEGATIVE); URINE COLOR YELLOW; URINE GLUCOSE (UA) 3+ (NEGATIVE); URINE KETONE 2+ (NEGATIVE); URINE LEUK ESTERASE NEGATIVE (NEGATIVE); URINE NITRITE NEGATIVE (NEGATIVE); URINE PROTEIN NEGATIVE (NEGATIVE); URINE RBC 6 /uL (0-23.9); URINE UROBILINOGEN 0.2 mg/dL (0.2-1.0); URINE WBC 1 /uL (0-25.8)
[2023-03-27 20:38] LABS: ACTIVATED PTT 27.6 SECONDS (25.2-36.5)
[2023-03-27 20:47] LABS: ANION GAP 9 mmol/L (4-13); GLUCOSE,RANDOM 616 mg/dL (74-106); POTASSIUM 7.3 mmol/L (3.5-5.1)
[2023-03-27 21:40] LABS: CHLORIDE 97 mmol/L (98-107); POTASSIUM 3.8 mmol/L (3.5-5.1); SODIUM 130 mmol/L (136-145)
[2023-03-27 21:42] LABS: CALCIUM 8.8 mg/dL (8.5-10.1)
[2023-03-27 21:43] LABS: ANION GAP 9 mmol/L (4-13); CO2 25 mmol/L (21-32)
[2023-03-27 21:46] LABS: CREATININE 0.6 mg/dL (0.55-1.3); SGOT/AST 7 U/L (15-37); SGPT/ALT 19 U/L (13-61)
[2023-03-27 21:47] LABS: BILIRUBIN,TOTAL 0.2 mg/dL (0.2-1)
[2023-03-27 21:48] LABS: TOT PROT 5.7 g/dl (6.4-8.2)
[2023-03-27 21:49] LABS: ALK PHOS 60 U/L (45-117)
[2023-03-27 21:52] LABS: ALBUMIN 2.8 g/dl (3.4-5.0); GLUCOSE,RANDOM 527 mg/dL (74-106)
[2023-03-27] MEDS ORDERED: INSULIN REGULAR HUMAN 100 UNITS/ML *VIAL IVPUSH ONE (22:21)
[2023-03-28] MEDS: SODIUM CHLORIDE 1,000 ML IV SCH ×2 (00:17→19:08)
[2023-03-28 06:49] LABS: BASO % 0.6 % (0-2.0); EOS % 3.1 % (0-4.5); HEMATOCRIT 36.5 % (32.4-45.2); HEMOGLOBIN 11.7 GM/dL (10.7-15.3); LYMPH % 42.8 % (8-40); MCH 26.5 pg (25.7-33.7); MCHC 32.1 g/dl (32.0-36.0); MEAN CELL VOLUME 82.5 fl (80-96); MEAN PLT VOLUME 9.4 fl (7.5-11.1); MONO % 7.2 % (3.8-10.2); NEUT % 46.3 % (42.8-82.8); PLATELET COUNT 297 10^3/uL (134-434); RBC 4.43 M/mm3 (3.60-5.2); RDW 13.4 % (11.6-15.6)
[2023-03-28 06:55] LABS: POTASSIUM 4.2 mmol/L (3.5-5.1)
[2023-03-28 06:57] LABS: CALCIUM 8.5 mg/dL (8.5-10.1)
[2023-03-28 06:58] LABS: BLOOD UREA NITROGEN 9.1 mg/dL (7-18)
[2023-03-28] MEDS ORDERED: INSULIN ASPART SLIDING SCALE (NOVOLOG) 1 VIAL SQ SCH (07:00)
[2023-03-28 07:01] LABS: CREATININE 0.6 mg/dL (0.55-1.3)
[2023-03-28] MEDS ORDERED: INSULIN (LEVEMIR) 100 UNITS/ML UNITS SQ ONE (08:11)
[2023-03-28] MEDS: INSULIN (LEVEMIR) 100 UNITS/ML UNITS SQ SCH ×3 (08:14→22:57)
[2023-03-28] MEDS: INSULIN (NOVOLOG) ASPART 100 UNITS/ML 10ML VIAL SQ SCH ×3 (08:15→18:01)
[2023-03-28] MEDS ORDERED: INSULIN (NOVOLOG) ASPART 100 UNITS/ML 10ML VIAL SQ SCH (11:00)
[2023-03-28] MEDS ORDERED: REMDESIVIR 200 MG in SODIUM CHLORIDE 250 ML IVPB ONE (12:30)
[2023-03-28] MEDS: INSULIN ASPART SLIDING SCALE (NOVOLOG) 1 VIAL SQ SCH ×3 (13:17→22:34)
[2023-03-28] MEDS ORDERED: ALBUTEROL SO4 2.5/IPRATROPIUM 0.5 INH SOL 3 ML VIAL.NEB. NEB PRN (15:10)
[2023-03-28 17:29] VITALS: BMI 24.6
[2023-03-28] MEDS ORDERED: INSULIN (NOVOLOG) ASPART 100 UNITS/ML 10ML VIAL ONE (21:44)
[2023-03-28] MEDS: BUDESONIDE/FORMETEROL FUMARATE 160/4.5 mcg INHALER IH SCH (22:48)
[2023-03-29] MEDS: INSULIN (LEVEMIR) 100 UNITS/ML UNITS SQ SCH ×2 (07:06→22:17)
[2023-03-29] MEDS: INSULIN (NOVOLOG) ASPART 100 UNITS/ML 10ML VIAL SQ SCH ×3 (07:08→17:21)
[2023-03-29] MEDS: INSULIN ASPART SLIDING SCALE (NOVOLOG) 1 VIAL SQ SCH ×4 (07:09→22:23)
[2023-03-29] MEDS: SODIUM CHLORIDE 1,000 ML IV SCH ×2 (07:13→18:24)
[2023-03-29 08:57] LABS: BASO % 0.5 % (0-2.0); HEMATOCRIT 35.6 % (32.4-45.2); HEMOGLOBIN 11.6 GM/dL (10.7-15.3); LYMPH % 38.2 % (8-40); MCH 26.5 pg (25.7-33.7); MCHC 32.6 g/dl (32.0-36.0); MEAN CELL VOLUME 81.2 fl (80-96); MEAN PLT VOLUME 9.5 fl (7.5-11.1); MONO % 6.3 % (3.8-10.2); PLATELET COUNT 332 10^3/uL (134-434); RBC 4.39 M/mm3 (3.60-5.2); RDW 13.6 % (11.6-15.6); WHITE BLOOD COUNT 7.2 K/mm3 (4.0-10.0)
[2023-03-29 09:13] LABS: POTASSIUM 3.5 mmol/L (3.5-5.1)
[2023-03-29] MEDS: REMDESIVIR 100 MG in SODIUM CHLORIDE 250 ML IVPB SCH (09:13)
[2023-03-29] MEDS: BUDESONIDE/FORMETEROL FUMARATE 160/4.5 mcg INHALER IH SCH ×2 (09:14→22:19)
[2023-03-29 09:24] LABS: BLOOD UREA NITROGEN 8.6 mg/dL (7-18)
[2023-03-29 09:27] LABS: ALBUMIN 2.6 g/dl (3.4-5.0); CALCIUM 8.3 mg/dL (8.5-10.1)
[2023-03-29 09:30] LABS: CREATININE 0.4 mg/dL (0.55-1.3)
[2023-03-29 09:31] LABS: TOT PROT 5.8 g/dl (6.4-8.2)
[2023-03-29 09:32] LABS: BILIRUBIN,TOTAL 0.1 mg/dL (0.2-1)
[2023-03-29] MEDS: ENOXAPARIN NA (PORCINE) 40 MG/0.4 ML DISP.SYRIN SQ SCH (17:19)
[2023-03-29] MEDS: TOBRAMYCIN 0.3% OPHTH OINT 3.5 GM OU SCH (22:50)
[2023-03-30] MEDS: SODIUM CHLORIDE 1,000 ML IV SCH ×2 (04:39→20:08)
[2023-03-30] MEDS: INSULIN ASPART SLIDING SCALE (NOVOLOG) 1 VIAL SQ SCH ×4 (06:30→22:06)
[2023-03-30] MEDS: INSULIN (NOVOLOG) ASPART 100 UNITS/ML 10ML VIAL SQ SCH ×3 (06:30→17:22)
[2023-03-30] MEDS: TOBRAMYCIN 0.3% OPHTH OINT 3.5 GM OU SCH ×3 (06:54→22:08)
[2023-03-30 09:38] LABS: BASO % 0.6 % (0-2.0); EOS % 2.5 % (0-4.5); HEMATOCRIT 34.8 % (32.4-45.2); HEMOGLOBIN 11.7 GM/dL (10.7-15.3); LYMPH % 37.3 % (8-40); MCH 27.4 pg (25.7-33.7); MCHC 33.6 g/dl (32.0-36.0); MEAN CELL VOLUME 81.5 fl (80-96); MEAN PLT VOLUME 9.5 fl (7.5-11.1); MONO % 7.1 % (3.8-10.2); NEUT % 52.5 % (42.8-82.8); PLATELET COUNT 322 10^3/uL (134-434); RBC 4.27 M/mm3 (3.60-5.2); RDW 13.4 % (11.6-15.6); WHITE BLOOD COUNT 7.6 K/mm3 (4.0-10.0)
[2023-03-30 09:46] LABS: POTASSIUM 3.6 mmol/L (3.5-5.1)
[2023-03-30 10:01] LABS: ALBUMIN 2.8 g/dl (3.4-5.0); BLOOD UREA NITROGEN 5.7 mg/dL (7-18); CALCIUM 8.4 mg/dL (8.5-10.1)
[2023-03-30 10:04] LABS: BILIRUBIN,TOTAL 0.2 mg/dL (0.2-1); CREATININE 0.3 mg/dL (0.55-1.3)
[2023-03-30 10:05] LABS: TOT PROT 5.6 g/dl (6.4-8.2)
[2023-03-30] MEDS: ENOXAPARIN NA (PORCINE) 40 MG/0.4 ML DISP.SYRIN SQ SCH (11:14)
[2023-03-30] MEDS: REMDESIVIR 100 MG in SODIUM CHLORIDE 250 ML IVPB SCH (11:14)
[2023-03-30] MEDS: INSULIN (LEVEMIR) 100 UNITS/ML UNITS SQ SCH (11:17)
[2023-03-30] MEDS: BUDESONIDE/FORMETEROL FUMARATE 160/4.5 mcg INHALER IH SCH ×2 (11:21→22:07)
[2023-03-30] MEDS ORDERED: INSULIN (NOVOLOG) ASPART 100 UNITS/ML 10ML VIAL ONE (12:09)
[2023-03-30] MEDS ORDERED: INSULIN (LEVEMIR) 100 UNITS/ML UNITS SQ ONE (12:40)
[2023-03-30 15:05] VITALS: RESP 18
[2023-03-31] MEDS ORDERED: ACETAMINOPHEN 1000 MG/100 ML BAG IVPB ONE (04:29)
[2023-03-31] MEDS: TOBRAMYCIN 0.3% OPHTH OINT 3.5 GM OU SCH (05:13)
[2023-03-31] MEDS: SODIUM CHLORIDE 1,000 ML IV SCH ×2 (05:54→06:02)
[2023-03-31] MEDS: INSULIN (NOVOLOG) ASPART 100 UNITS/ML 10ML VIAL SQ SCH ×2 (06:36→12:19)
[2023-03-31] MEDS: INSULIN ASPART SLIDING SCALE (NOVOLOG) 1 VIAL SQ SCH ×2 (06:37→12:19)
[2023-03-31 06:57] VITALS: BP 117/82; PULSE 80; TEMP 97.9
[2023-03-31] MEDS ORDERED: INSULIN (LEVEMIR) 100 UNITS/ML UNITS SQ SCH (07:00)
[2023-03-31] MEDS: ENOXAPARIN NA (PORCINE) 40 MG/0.4 ML DISP.SYRIN SQ SCH (10:12)
[2023-03-31] MEDS: BUDESONIDE/FORMETEROL FUMARATE 160/4.5 mcg INHALER IH SCH (10:19)
== END 2023-03-31 12:55 | disposition home or self-care (01) | DRG 137 ==
LOC: JER 18:57 → JERBED 22:24 → J8W 03-28 12:29
PROVIDERS: ADMIT Internal Medicine; ATTEND Internal Medicine
PROC: XW033E5 Introduction of Remdesivir Anti-infective into Peripheral Vein, Percutaneous Approach, New Technology Group 5 (ICD-10-PCS; principal; 2023-03-27)
DX: U07.1 COVID-19 (principal); E11.65 Type 2 diabetes mellitus with hyperglycemia; G40.909 Epilepsy, unspecified, not intractable, without status epilepticus; J45.909 Unspecified asthma, uncomplicated; M79.10 Myalgia, unspecified site; Z86.73 Personal history of transient ischemic attack (TIA), and cerebral infarction without residual deficits
CPT/HCPCS: 0241U-QW; 36415; 71045-TC-FY; 80048; 80053; 81003; 82010; 82803; 82962; 83036; 83735; 83930; 84100; 84484; 84703; 85025; 85610; 85730; 87077; 87086; 93005; 93010; 99285-25; J0248

== ENCOUNTER 2023-08-27 21:52 | Emergency (ER) | payer OTHER ==
[2023-08-27 22:02] VITALS: BMI 25.4
[2023-08-27] MEDS: SODIUM CHLORIDE 0.9% 500 ML INFUS.BAG IV ONE ×2 (22:40→23:46)
[2023-08-27 22:44] LABS: VENOUS BASE EXCESS -4.7 mmol/L (-2-2); VENOUS O2 SATURATION 85.8 % (70-80); VENOUS PCO2 34.5 mmHg (38-52); VENOUS PH 7.374 (7.310-7.410)
[2023-08-27 22:45] LABS: BASO % 0.5 % (0-2.0); EOS % 0.9 % (0-4.5); HEMATOCRIT 40.5 % (32.4-45.2); HEMOGLOBIN 13.3 GM/dL (10.7-15.3); LYMPH % 29.5 % (8-40); MCH 26.9 pg (25.7-33.7); MCHC 32.9 g/dl (32.0-36.0); MEAN CELL VOLUME 81.8 fl (80-96); MEAN PLT VOLUME 8.8 fl (7.5-11.1); NEUT % 62.1 % (42.8-82.8); PLATELET COUNT 366 10^3/uL (134-434); RBC 4.95 M/mm3 (3.60-5.2); RDW 13.5 % (11.6-15.6); WHITE BLOOD COUNT 6.9 K/mm3 (4.0-10.0)
[2023-08-27 22:46] LABS: URINE APPEARANCE Clear; URINE BILIRUBIN Negative (NEGATIVE); URINE COLOR Yellow; URINE GLUCOSE (UA) 3+ (NEGATIVE); URINE KETONE Trace (NEGATIVE); URINE LEUK ESTERASE Negative (NEGATIVE); URINE NITRITE Negative (NEGATIVE); URINE PROTEIN Negative (NEGATIVE); URINE UROBILINOGEN 0.2 mg/dL (0.2-1.0)
[2023-08-27] MEDS: ALBUTEROL SO4 2.5/IPRATROPIUM 0.5 INH SOL 3 ML VIAL.NEB. NEB PRN (22:52)
[2023-08-27 23:19] LABS: CHLORIDE 96 mmol/L (98-107); POTASSIUM 4.1 mmol/L (3.5-5.1); SODIUM 131 mmol/L (136-145)
[2023-08-27 23:21] LABS: CALCIUM 9.6 mg/dL (8.5-10.1)
[2023-08-27 23:23] LABS: ALBUMIN 3.9 g/dl (3.4-5.0); ANION GAP 14 mmol/L (4-13); BLOOD UREA NITROGEN 11.9 mg/dL (7-18); CO2 21 mmol/L (21-32)
[2023-08-27 23:24] LABS: SGPT/ALT 14 U/L (13-61)
[2023-08-27 23:25] LABS: CREATININE 0.9 mg/dL (0.55-1.3)
[2023-08-27 23:26] LABS: BILIRUBIN,TOTAL 0.3 mg/dL (0.2-1); TOT PROT 7.5 g/dl (6.4-8.2)
[2023-08-27 23:29] LABS: ALK PHOS 63 U/L (45-117)
[2023-08-27] MEDS ORDERED: INSULIN REGULAR HUMAN 100 UNITS/ML *VIAL ONE (23:34)
[2023-08-27] MEDS ORDERED: POTASSIUM CHLORIDE ORAL LIQUID 20 MEQ/15 ML ONE (23:34)
[2023-08-27 23:40] LABS: GLUCOSE,RANDOM 702 mg/dL (74-106); SGOT/AST < 3 U/L (15-37)
[2023-08-27] MEDS: INSULIN REGULAR HUMAN 100 UNITS/ML *VIAL IVPUSH ONE (23:46)
[2023-08-27] MEDS: POTASSIUM CHLORIDE ORAL LIQUID 20 MEQ/15 ML PO ONE (23:46)
[2023-08-28 00:44] VITALS: BP 103/59; PULSE 98; RESP 16; TEMP 98.6
[2023-08-28 01:33] LABS: POTASSIUM 3.6 mmol/L (3.5-5.1)
[2023-08-28 01:34] LABS: CALCIUM 8.4 mg/dL (8.5-10.1)
[2023-08-28 01:36] LABS: BLOOD UREA NITROGEN 9.9 mg/dL (7-18)
[2023-08-28 01:38] LABS: CREATININE 0.6 mg/dL (0.55-1.3)
== END 2023-08-28 02:24 | disposition home or self-care (01) ==
LOC: JER 21:52
PROC: 3E033VG Introduction of Insulin into Peripheral Vein, Percutaneous Approach (ICD-10-PCS; principal; 2023-08-27)
DX: E10.65 Type 1 diabetes mellitus with hyperglycemia (principal); Z79.4 Long term (current) use of insulin; R06.02 Shortness of breath; R35.0 Frequency of micturition; R53.81 Other malaise; R00.0 Tachycardia, unspecified; Z20.822 Contact with and (suspected) exposure to COVID-19
CPT/HCPCS: 0241U-QW; 36415; 71046-TC-FY; 80048; 80053; 81003; 82010; 82803; 82962; 83735; 84100; 84484; 84703; 85025; 87086; 93005; 93010; 99285-25

== ENCOUNTER 2023-09-19 09:07 | Emergency (ER) | payer OTHER ==
[2023-09-19 09:15] VITALS: BP 113/72; PULSE 103; RESP 18; TEMP 97.8; BMI 25.4
[2023-09-19 10:44] LABS: VENOUS BASE EXCESS -1.5 mmol/L (-2-2); VENOUS O2 SATURATION 89.5 % (70-80); VENOUS PCO2 38.7 mmHg (38-52); VENOUS PH 7.394 (7.310-7.410)
[2023-09-19 10:47] LABS: BASO % 0.6 % (0-2.0); EOS % 0.9 % (0-4.5); HEMATOCRIT 36.9 % (32.4-45.2); HEMOGLOBIN 11.9 GM/dL (10.7-15.3); LYMPH % 28.4 % (8-40); MCH 26.6 pg (25.7-33.7); MCHC 32.4 g/dl (32.0-36.0); MEAN CELL VOLUME 82.1 fl (80-96); MEAN PLT VOLUME 8.6 fl (7.5-11.1); MONO % 8.7 % (3.8-10.2); NEUT % 61.4 % (42.8-82.8); PLATELET COUNT 340 10^3/uL (134-434); RBC 4.49 M/mm3 (3.60-5.2); RDW 13.4 % (11.6-15.6); WHITE BLOOD COUNT 7.2 K/mm3 (4.0-10.0)
[2023-09-19 10:59] LABS: POTASSIUM 3.4 mmol/L (3.5-5.1)
[2023-09-19 11:01] LABS: CALCIUM 9.2 mg/dL (8.5-10.1); MAGNESIUM 1.8 mg/dL (1.8-2.4)
[2023-09-19] MEDS: LACTATED RINGERS SOLUTION 1000 ML INFUS.BAG IV ONE ×2 (11:02→11:20)
[2023-09-19 11:05] LABS: CREATININE 0.5 mg/dL (0.55-1.3); PHOSPHOROUS 3.5 mg/dL (2.5-4.9)
[2023-09-19 11:07] LABS: BLOOD UREA NITROGEN 6.6 mg/dL (7-18)
[2023-09-19] MEDS ORDERED: POTASSIUM CHLORIDE ORAL LIQUID 20 MEQ/15 ML ONE (11:17)
[2023-09-19] MEDS: POTASSIUM CHLORIDE ORAL LIQUID 20 MEQ/15 ML PO ONE (11:20)
[2023-09-19 14:21] LABS: URINE APPEARANCE CLEAR; URINE BILIRUBIN NEGATIVE (NEGATIVE); URINE COLOR YELLOW; URINE GLUCOSE (UA) 3+ (NEGATIVE); URINE KETONE TRACE (NEGATIVE); URINE LEUK ESTERASE NEGATIVE (NEGATIVE); URINE NITRITE NEGATIVE (NEGATIVE); URINE PROTEIN NEGATIVE (NEGATIVE); URINE UROBILINOGEN 0.2 mg/dL (0.2-1.0)
== END 2023-09-19 12:30 | disposition home or self-care (01) ==
LOC: JER 09:07
DX: E11.65 Type 2 diabetes mellitus with hyperglycemia (principal); H53.8 Other visual disturbances; R68.2 Dry mouth, unspecified; R55 Syncope and collapse; Z79.4 Long term (current) use of insulin
CPT/HCPCS: 36415; 71045-TC-FY; 80048; 81003; 82010; 82803; 82962; 83735; 84100; 85025; 93005; 93010; 99285-25

== ENCOUNTER 2024-02-14 17:09 | Inpatient (IN) | payer OTHER ==
[2024-02-14 17:19] VITALS: BMI 24.5
[2024-02-14 18:49] LABS: VENOUS BASE EXCESS -4.7 mmol/L (-2-2); VENOUS PCO2 37.1 mmHg (38-52); VENOUS PH 7.355 (7.310-7.410)
[2024-02-14 18:50] LABS: BASO % 0.3 % (0-2.0); EOS % 0.6 % (0-4.5); HEMATOCRIT 38.8 % (32.4-45.2); HEMOGLOBIN 12.5 GM/dL (10.7-15.3); LYMPH % 18.4 % (8-40); MCH 26.5 pg (25.7-33.7); MCHC 32.1 g/dl (32.0-36.0); MEAN CELL VOLUME 82.4 fl (80-96); MEAN PLT VOLUME 9.1 fl (7.5-11.1); MONO % 5.8 % (3.8-10.2); NEUT % 74.9 % (42.8-82.8); PLATELET COUNT 319 10^3/uL (134-434); RBC 4.72 M/mm3 (3.60-5.2); RDW 14.2 % (11.6-15.6); WHITE BLOOD COUNT 8.3 K/mm3 (4.0-10.0)
[2024-02-14] MEDS: SODIUM CHLORIDE 1,000 ML IV STA (18:53)
[2024-02-14 19:00] LABS: INR 0.85 (0.83-1.09); PROTHROMBIN TIME (PATIENT) 9.7 SEC (9.7-13.0)
[2024-02-14 19:02] LABS: ACTIVATED PTT 27.3 SECONDS (25.2-36.5)
[2024-02-14 19:07] LABS: CHLORIDE 92 mmol/L (98-107); POTASSIUM 4.3 mmol/L (3.5-5.1); SODIUM 124 mmol/L (136-145)
[2024-02-14 19:10] LABS: ALBUMIN 3.4 g/dl (3.4-5.0); ANION GAP 9 mmol/L (4-13); BLOOD UREA NITROGEN 9.2 mg/dL (7-18); CALCIUM 9.3 mg/dL (8.5-10.1); CO2 24 mmol/L (21-32); MAGNESIUM 1.7 mg/dL (1.8-2.4)
[2024-02-14 19:13] LABS: CREATININE 0.9 mg/dL (0.55-1.3); PHOSPHOROUS 4.3 mg/dL (2.5-4.9); SGOT/AST 8 U/L (15-37); SGPT/ALT 17 U/L (13-61)
[2024-02-14 19:14] LABS: BILIRUBIN,TOTAL 0.3 mg/dL (0.2-1); TOT PROT 6.5 g/dl (6.4-8.2)
[2024-02-14 19:16] LABS: ALK PHOS 63 U/L (45-117)
[2024-02-14 19:17] LABS: GLUCOSE,RANDOM 847 mg/dL (74-106)
[2024-02-14 19:30] LABS: PH,URINE 5.5 (5.0-8.0); URINE APPEARANCE CLEAR; URINE BILIRUBIN NEGATIVE (NEGATIVE); URINE COLOR YELLOW; URINE GLUCOSE (UA) 3+ (NEGATIVE); URINE KETONE NEGATIVE (NEGATIVE); URINE LEUK ESTERASE NEGATIVE (NEGATIVE); URINE NITRITE NEGATIVE (NEGATIVE); URINE PROTEIN NEGATIVE (NEGATIVE); URINE UROBILINOGEN 0.2 mg/dL (0.2-1.0)
[2024-02-14] MEDS ORDERED: INSULIN REGULAR HUMAN 100 UNITS/ML *VIAL ONE (20:12)
[2024-02-14] MEDS ORDERED: MAGNESIUM 1GM/D5W - 1 GM/100 ML IVPB IVPB ONE (20:12)
[2024-02-14] MEDS: MAGNESIUM 1GM/D5W - 1 GM/100 ML IVPB IVPB ONE (20:19)
[2024-02-14] MEDS: INSULIN REGULAR HUMAN 100 UNITS/ML *VIAL SQ ONE (20:19)
[2024-02-14] MEDS: LACTATED RINGERS SOLUTION 1000 ML INFUS.BAG IV ONE (22:06)
[2024-02-14] MEDS: INSULIN REGULAR HUMAN 100 UNITS/ML *VIAL IVPUSH ONE (22:06)
[2024-02-15 02:11] LABS: CHLORIDE 104 mmol/L (98-107); POTASSIUM 3.7 mmol/L (3.5-5.1); SODIUM 137 mmol/L (136-145)
[2024-02-15 02:13] LABS: ANION GAP 6 mmol/L (4-13); BLOOD UREA NITROGEN 7.9 mg/dL (7-18); CALCIUM 8.9 mg/dL (8.5-10.1); CO2 27 mmol/L (21-32)
[2024-02-15 02:16] LABS: CREATININE 0.7 mg/dL (0.55-1.3)
[2024-02-15 02:21] LABS: GLUCOSE,RANDOM 477 mg/dL (74-106)
[2024-02-15] MEDS: SODIUM CHLORIDE 0.45%/POT 20 MEQ/1,000 ML INFUS.BAG IV SCH (02:30)
[2024-02-15] MEDS: INSULIN (NOVOLOG) ASPART 100 UNITS/ML 10ML VIAL SQ ONE (02:30)
[2024-02-15] MEDS ORDERED: DOCUSATE SODIUM 100 MG CAPSULE (FP) PO PRN (02:31)
[2024-02-15] MEDS ORDERED: MELATONIN 5 MG TABLETS PO PRN (04:30)
[2024-02-15] MEDS: ACETAMINOPHEN 1000 MG/100 ML BAG IVPB ONE (04:35)
[2024-02-15] MEDS: ALBUTEROL SO4 HFA INHALER IH PRN (05:45)
[2024-02-15] MEDS: INSULIN ASPART SLIDING SCALE (NOVOLOG) 1 VIAL SQ SCH ×2 (05:46→21:18)
[2024-02-15 09:50] LABS: BASO % 0.4 % (0-2.0); EOS % 0.9 % (0-4.5); HEMOGLOBIN 12.1 GM/dL (10.7-15.3); LYMPH % 34.4 % (8-40); MCH 26.7 pg (25.7-33.7); MCHC 32.8 g/dl (32.0-36.0); MEAN CELL VOLUME 81.4 fl (80-96); MEAN PLT VOLUME 9.5 fl (7.5-11.1); MONO % 8.7 % (3.8-10.2); NEUT % 55.6 % (42.8-82.8); PLATELET COUNT 360 10^3/uL (134-434); RBC 4.54 M/mm3 (3.60-5.2); WHITE BLOOD COUNT 7.7 K/mm3 (4.0-10.0)
[2024-02-15 10:09] LABS: BLOOD UREA NITROGEN 7.6 mg/dL (7-18); MAGNESIUM 1.7 mg/dL (1.8-2.4)
[2024-02-15 10:11] LABS: CALCIUM 8.7 mg/dL (8.5-10.1)
[2024-02-15 10:12] LABS: CREATININE 0.4 mg/dL (0.55-1.3)
[2024-02-15] MEDS: ACETAMINOPHEN 325 MG TABLET (FP) PO PRN (10:58)
[2024-02-15] MEDS: BUDESONIDE/FORMETEROL FUMARATE 160/4.5 mcg INHALER IH SCH (11:00)
[2024-02-15] MEDS: INSULIN (NOVOLOG MIX 70/30) 100 UNITS/ML MDV SQ SCH (17:32)
[2024-02-15] MEDS: INSULIN (LEVEMIR) 100 UNITS/ML UNITS SQ SCH (21:18)
[2024-02-16] MEDS: INSULIN (NOVOLOG) ASPART 100 UNITS/ML 10ML VIAL SQ ONE (01:33)
[2024-02-16] MEDS: INSULIN (LEVEMIR) 100 UNITS/ML UNITS SQ SCH (06:04)
[2024-02-16 09:47] LABS: POTASSIUM 3.9 mmol/L (3.5-5.1)
[2024-02-16 09:59] LABS: ALBUMIN 2.9 g/dl (3.4-5.0)
[2024-02-16 10:01] LABS: BASO % 0.3 % (0-2.0); EOS % 1.3 % (0-4.5); HEMATOCRIT 36.6 % (32.4-45.2); LYMPH % 38.9 % (8-40); MCH 26.9 pg (25.7-33.7); MCHC 32.9 g/dl (32.0-36.0); MEAN CELL VOLUME 81.7 fl (80-96); MEAN PLT VOLUME 9.1 fl (7.5-11.1); MONO % 6.7 % (3.8-10.2); NEUT % 52.8 % (42.8-82.8); PLATELET COUNT 326 10^3/uL (134-434); RBC 4.48 M/mm3 (3.60-5.2); RDW 14.1 % (11.6-15.6)
[2024-02-16 10:02] LABS: CALCIUM 8.6 mg/dL (8.5-10.1)
[2024-02-16 10:03] LABS: CREATININE 0.4 mg/dL (0.55-1.3)
[2024-02-16 10:04] LABS: BILIRUBIN,TOTAL 0.3 mg/dL (0.2-1); TOT PROT 5.6 g/dl (6.4-8.2)
[2024-02-16 10:07] LABS: BLOOD UREA NITROGEN 5.3 mg/dL (7-18)
[2024-02-16] MEDS: ENOXAPARIN NA (PORCINE) 40 MG/0.4 ML DISP.SYRIN SQ SCH (10:51)
[2024-02-16] MEDS ORDERED: ALBUTEROL SO4 HFA INHALER IH PRN (13:02)
[2024-02-16] MEDS: MONTELUKAST NA 10 MG TABLET PO SCH (21:09)
[2024-02-17 09:41] LABS: BASO % 0.4 % (0-2.0); EOS % 1.8 % (0-4.5); HEMATOCRIT 36.6 % (32.4-45.2); HEMOGLOBIN 12.1 GM/dL (10.7-15.3); LYMPH % 37.2 % (8-40); MCH 27.2 pg (25.7-33.7); MCHC 33.1 g/dl (32.0-36.0); MEAN CELL VOLUME 82.1 fl (80-96); MEAN PLT VOLUME 8.9 fl (7.5-11.1); MONO % 8.2 % (3.8-10.2); NEUT % 52.4 % (42.8-82.8); PLATELET COUNT 320 10^3/uL (134-434); RBC 4.46 M/mm3 (3.60-5.2); RDW 14.4 % (11.6-15.6); WHITE BLOOD COUNT 6.9 K/mm3 (4.0-10.0)
[2024-02-17 09:54] LABS: POTASSIUM 4.1 mmol/L (3.5-5.1)
[2024-02-17 10:07] LABS: BLOOD UREA NITROGEN 6.6 mg/dL (7-18); CALCIUM 9.1 mg/dL (8.5-10.1)
[2024-02-17 10:10] LABS: CREATININE 0.4 mg/dL (0.55-1.3)
[2024-02-17 10:12] LABS: BILIRUBIN,TOTAL 0.2 mg/dL (0.2-1); TOT PROT 5.9 g/dl (6.4-8.2)
[2024-02-17 15:09] VITALS: BP 109/58; PULSE 87; RESP 18; TEMP 97.9
[2024-02-17] MEDS ORDERED: ALBUTEROL SO4 0.083% IH SOL 2.5 MG/3 ML VIAL.NEB. NEB SCH (22:00)
== END 2024-02-17 16:21 | disposition home or self-care (01) | DRG 420 ==
LOC: JER 17:09 → JERBED 23:39 → J8W 02-15 02:27
PROVIDERS: ADMIT Internal Medicine; ATTEND Internal Medicine
DX: E10.65 Type 1 diabetes mellitus with hyperglycemia (principal); E87.20 Acidosis, unspecified; E83.42 Hypomagnesemia; F17.210 Nicotine dependence, cigarettes, uncomplicated; J45.909 Unspecified asthma, uncomplicated; R05.1 Acute cough
CPT/HCPCS: 0241U-QW; 36415; 71046-TC-FY; 80048; 80053; 81003; 82010; 82803; 82962; 83036; 83735; 84100; 84703; 85025; 85610; 85730; 87086; 93005; 93010; 93971-TC; 99285-25; J0131; J3480

== ENCOUNTER 2024-08-02 20:07 | Inpatient (IN) | payer OTHER ==
[2024-08-02] MEDS: SODIUM CHLORIDE 0.9% 500 ML INFUS.BAG IV ONE (20:39)
[2024-08-02 20:54] LABS: VENOUS BASE EXCESS -12.3 mmol/L (-2-2); VENOUS O2 SATURATION 67.4 % (70-80); VENOUS PCO2 30.4 mmHg (38-52); VENOUS PH 7.26 (7.310-7.410)
[2024-08-02 21:00] LABS: ABSOLUTE IMMATURE GRANULOCYTES 0.03 x10^3/uL (0.0-0.031); BASOPHILS # 0.03 x10^3/uL (0.01-0.08); EOSINOPHIL % 0.4 % (0.7-5.8); EOSINOPHILS # 0.04 x10^3/uL (0.04-0.36); MCHC 32.6 g/dl (32.2-35.5); MEAN PLT VOLUME 10.7 fl (9.4-12.3); MONOCYTE # 0.73 x10^3/uL (0.24-0.86); MONOCYTE % 8.1 % (4.7-12.5); PLATELET COUNT 515 x10^3/uL (182-369); RDW 13.2 % (12.2-17.1)
[2024-08-02 21:14] LABS: ACTIVATED PTT 31.6 SECONDS (25.2-36.5)
[2024-08-02 21:22] LABS: CHLORIDE 99 mmol/L (98-107); POTASSIUM 4.4 mmol/L (3.5-5.1); SODIUM 128 mmol/L (136-145)
[2024-08-02 21:31] LABS: ALBUMIN 4.1 g/dl (3.4-5.0); CALCIUM 9.6 mg/dL (8.5-10.1)
[2024-08-02 21:32] LABS: ANION GAP 16 mmol/L (4-13); BLOOD UREA NITROGEN 6.2 mg/dL (7-18); CO2 13 mmol/L (21-32); MAGNESIUM 1.8 mg/dL (1.8-2.4)
[2024-08-02 21:33] LABS: GLUCOSE,RANDOM 429 mg/dL (74-106)
[2024-08-02 21:35] LABS: CREATININE 0.8 mg/dL (0.55-1.3); SGOT/AST 9 U/L (15-37); SGPT/ALT 14 U/L (13-61)
[2024-08-02 21:36] LABS: EPI CELLS 21 /uL (0-25.1); HYALINE CASTS 0 /uL (0-3.1); URINE APPEARANCE CLEAR; URINE BACTERIA 413 /uL (0-1359); URINE BILIRUBIN NEGATIVE (NEGATIVE); URINE COLOR YELLOW; URINE GLUCOSE (UA) 3+ (NEGATIVE); URINE KETONE 4+ (NEGATIVE); URINE LEUK ESTERASE 1+ (NEGATIVE); URINE NITRITE NEGATIVE (NEGATIVE); URINE PROTEIN NEGATIVE (NEGATIVE); URINE RBC 7 /uL (0-23.9); URINE UROBILINOGEN 0.2 mg/dL (0.2-1.0); URINE WBC 288 /uL (0-25.8)
[2024-08-02 21:37] LABS: TOT PROT 7.9 g/dl (6.4-8.2)
[2024-08-02 21:38] LABS: ALK PHOS 73 U/L (45-117); BILIRUBIN,TOTAL 0.6 mg/dL (0.2-1)
[2024-08-02] MEDS ORDERED: KCL 10 MEQ IVPB 10 MEQ/100 ML INFUS.BAG IVPB ONE (22:31)
[2024-08-02] MEDS: LACTATED RINGERS SOLUTION 1000 ML INFUS.BAG IV ONE (22:41)
[2024-08-02] MEDS: KCL 10 MEQ IVPB 10 MEQ/100 ML INFUS.BAG IVPB SCH (22:41)
[2024-08-02] MEDS ORDERED: CEFTRIAXONE 1 G/50 ML PREMIX 50 ML IVPB ONE (22:48)
[2024-08-02] MEDS: INSULIN REGULAR 100 UNITS in SODIUM CHLORIDE 99 ML IVPB SCH (23:38)
[2024-08-03] MEDS ORDERED: KCL 10 MEQ IVPB 10 MEQ/100 ML INFUS.BAG IVPB ONE (00:07)
[2024-08-03] MEDS: SODIUM CHLORIDE 1,000 ML IV SCH (00:52)
[2024-08-03] MEDS: DEXTROSE 5%-NORMAL SALINE 1,000 ML IV SCH (02:48)
[2024-08-03 02:53] LABS: POTASSIUM 3.8 mmol/L (3.5-5.1)
[2024-08-03 02:56] LABS: CALCIUM 8.4 mg/dL (8.5-10.1)
[2024-08-03 02:57] LABS: BLOOD UREA NITROGEN 5.8 mg/dL (7-18); MAGNESIUM 1.6 mg/dL (1.8-2.4)
[2024-08-03 03:00] LABS: CREATININE 0.5 mg/dL (0.55-1.3); PHOSPHOROUS 1.3 mg/dL (2.5-4.9)
[2024-08-03 03:01] LABS: BILIRUBIN,TOTAL 0.4 mg/dL (0.2-1)
[2024-08-03 03:02] LABS: TOT PROT 6.2 g/dl (6.4-8.2)
[2024-08-03 03:04] LABS: ALBUMIN 3.2 g/dl (3.4-5.0)
[2024-08-03] MEDS ORDERED: DEXTROSE 5%-NORMAL SALINE 1,000 ML IV SCH (05:00)
[2024-08-03] MEDS: HEPARIN NA (PORCINE) 5,000 UNITS/ML 1ML VIAL SQ SCH (06:12)
[2024-08-03] MEDS: KCL 10 MEQ IVPB 10 MEQ/100 ML INFUS.BAG IVPB SCH ×2 (06:14→09:19)
[2024-08-03 06:51] LABS: POTASSIUM 3.4 mmol/L (3.5-5.1)
[2024-08-03 06:59] LABS: ABSOLUTE IMMATURE GRANULOCYTES 0.02 x10^3/uL (0.0-0.031); BASOPHILS # 0.05 x10^3/uL (0.01-0.08); EOSINOPHIL % 1.5 % (0.7-5.8); HEMATOCRIT 34.1 % (34.1-44.9); HEMOGLOBIN 11.4 g/dL (11.2-15.7); MCHC 33.4 g/dl (32.2-35.5); MEAN CELL VOLUME 79.1 fl (79.4-94.8); MEAN PLT VOLUME 10.7 fl (9.4-12.3); MONOCYTE # 0.83 x10^3/uL (0.24-0.86); MONOCYTE % 12.7 % (4.7-12.5); PLATELET COUNT 368 x10^3/uL (182-369); RDW 12.6 % (12.2-17.1)
[2024-08-03 07:02] LABS: CALCIUM 8.5 mg/dL (8.5-10.1)
[2024-08-03 07:03] LABS: MAGNESIUM 1.5 mg/dL (1.8-2.4)
[2024-08-03 07:05] LABS: BILIRUBIN,TOTAL 0.4 mg/dL (0.2-1)
[2024-08-03 07:06] LABS: CREATININE 0.4 mg/dL (0.55-1.3); PHOSPHOROUS 1.6 mg/dL (2.5-4.9); TOT PROT 5.8 g/dl (6.4-8.2)
[2024-08-03] MEDS ORDERED: ALBUTEROL SO4 0.083% IH SOL 2.5 MG/3 ML VIAL.NEB. NEB PRN (07:23)
[2024-08-03] MEDS: MAGNESIUM SULFATE IN WATER 2 GM/50 ML IVPB IVPB ONE (08:09)
[2024-08-03] MEDS: INSULIN GLARGINE (LANTUS) 100 UNITS/ML UNITS SQ SCH (08:10)
[2024-08-03] MEDS: NAPH,MB-DB/K PH,MBDB POWDER PACKET PO ONE (09:19)
[2024-08-03] MEDS: CEFTRIAXONE 2 GM-D5W BAG 2 GM/50 ML BAG IVPB SCH (09:20)
[2024-08-03] MEDS ORDERED: MUPIROCIN 2% TOPICAL OINTMENT FOR DECOLONIZATION NS SCH (10:00)
[2024-08-03] MEDS: INSULIN ASPART SLIDING SCALE (NOVOLOG) 1 VIAL SQ SCH (10:19)
[2024-08-03] MEDS: POTASSIUM CHLORIDE ORAL LIQUID 20 MEQ/15 ML PO ONE (10:19)
[2024-08-03 12:01] LABS: CALCIUM 8.7 mg/dL (8.5-10.1)
[2024-08-03 12:02] LABS: BLOOD UREA NITROGEN 5.9 mg/dL (7-18); MAGNESIUM 2.1 mg/dL (1.8-2.4)
[2024-08-03 12:05] LABS: CREATININE 0.3 mg/dL (0.55-1.3); PHOSPHOROUS 1.7 mg/dL (2.5-4.9)
[2024-08-03 12:07] LABS: BILIRUBIN,TOTAL 0.5 mg/dL (0.2-1); TOT PROT 5.6 g/dl (6.4-8.2)
[2024-08-03] MEDS: INSULIN (NOVOLOG) ASPART 100 UNITS/ML 10ML VIAL SQ ONE (12:08)
[2024-08-03 14:17] VITALS: BMI 23.8
[2024-08-03 21:30] VITALS: RESP 18
[2024-08-03] MEDS ORDERED: CHLORHEXIDINE GLUCONATE 4% CLEANSER FOR DECOLONIZATION TP SCH (22:00)
[2024-08-04] MEDS: INSULIN GLARGINE (LANTUS) 100 UNITS/ML UNITS SQ SCH (06:15)
[2024-08-04] MEDS ORDERED: ALBUTEROL SO4 0.083% IH SOL 2.5 MG/3 ML VIAL.NEB. NEB PRN (07:14)
[2024-08-04 08:47] LABS: HEMOGLOBIN 11.7 g/dL (11.2-15.7); MCHC 33.4 g/dl (32.2-35.5); MEAN CELL VOLUME 79.2 fl (79.4-94.8); MEAN PLT VOLUME 10.9 fl (9.4-12.3); PLATELET COUNT 389 x10^3/uL (182-369); RDW 13.1 % (12.2-17.1)
[2024-08-04 09:09] LABS: POTASSIUM 3.4 mmol/L (3.5-5.1)
[2024-08-04 09:28] LABS: BILIRUBIN,TOTAL 0.3 mg/dL (0.2-1); BLOOD UREA NITROGEN 6.7 mg/dL (7-18)
[2024-08-04 09:29] LABS: TOT PROT 5.8 g/dl (6.4-8.2)
[2024-08-04 09:30] LABS: CALCIUM 9.4 mg/dL (8.5-10.1); MAGNESIUM 1.8 mg/dL (1.8-2.4)
[2024-08-04 09:31] LABS: PHOSPHOROUS 3.3 mg/dL (2.5-4.9)
[2024-08-04 09:34] LABS: CREATININE 0.4 mg/dL (0.55-1.3)
[2024-08-04] MEDS: BUDESONIDE/FORMETEROL FUMARATE 160/4.5 mcg INHALER IH SCH (11:42)
[2024-08-04] MEDS: INSULIN ASPART SLIDING SCALE (NOVOLOG) 1 VIAL SQ SCH (11:42)
[2024-08-04 12:33] VITALS: TEMP 98.4
[2024-08-04] MEDS: HEPARIN NA (PORCINE) 5,000 UNITS/ML 1ML VIAL SQ SCH (13:59)
[2024-08-04 14:39] VITALS: BP 153/70; PULSE 78
== END 2024-08-04 18:46 | disposition home or self-care (01) | DRG 420 ==
LOC: JER 20:07 → JERBED 21:03 → JICU 08-03 00:45 → J5S 08-03 15:30
PROVIDERS: ADMIT Internal Medicine Pulmonary Disease; ATTEND Internal Medicine
DX: E10.10 Type 1 diabetes mellitus with ketoacidosis without coma (principal); N39.0 Urinary tract infection, site not specified; J45.909 Unspecified asthma, uncomplicated; Z59.01 Sheltered homelessness
CPT/HCPCS: 0241U-QW; 36415; 71045-TC-FY; 80053; 81003; 82010; 82803; 82962; 83605; 83735; 84100; 84484; 84703; 85025; 85027; 85610; 85730; 87086; 93005; 93010; 97116-GP; 97162-GP; 99291; J1644

== ENCOUNTER 2025-01-03 13:11 | Inpatient (IN) | payer OTHER ==
[2025-01-03] MEDS: LACTATED RINGERS SOLUTION 1000 ML INFUS.BAG IV ONE ×2 (14:38→16:11)
[2025-01-03 14:45] LABS: BG HCT 42.0 % (32.4-45.2); VENOUS BASE EXCESS -10.4 mmol/L (-2-2); VENOUS O2 SATURATION 23.5 % (70-80); VENOUS PCO2 44.8 mmHg (38-52); VENOUS PH 7.204 (7.310-7.410)
[2025-01-03 14:47] LABS: ABSOLUTE IMMATURE GRANULOCYTES 0.01 x10^3/uL (0.0-0.031); BASOPHILS # 0.03 x10^3/uL (0.01-0.08); EOSINOPHIL % 0.5 % (0.7-5.8); EOSINOPHILS # 0.03 x10^3/uL (0.04-0.36); MCHC 31.1 g/dl (32.2-35.5); MEAN CELL VOLUME 84.1 fl (79.4-94.8); MEAN PLT VOLUME 11.1 fl (9.4-12.3); MONOCYTE # 0.37 x10^3/uL (0.24-0.86); MONOCYTE % 6.5 % (4.7-12.5); RDW 13.1 % (12.2-17.1)
[2025-01-03 14:56] LABS: URINE COLOR YELLOW
[2025-01-03 14:57] LABS: URINE APPEARANCE TURBID; URINE BILIRUBIN NEGATIVE (NEGATIVE); URINE GLUCOSE (UA) 4+ (NEGATIVE); URINE KETONE 3+ (NEGATIVE); URINE LEUK ESTERASE NEGATIVE (NEGATIVE); URINE NITRITE NEGATIVE (NEGATIVE); URINE PROTEIN NEGATIVE (NEGATIVE); URINE UROBILINOGEN 0.2 mg/dL (0.2-1.0)
[2025-01-03 15:03] LABS: GLUCOSE,RANDOM 793 mg/dL (74-106)
[2025-01-03 15:04] LABS: TOT PROT 7.6 g/dl (6.4-8.2)
[2025-01-03 15:05] LABS: CO2 17 mmol/L (21-32)
[2025-01-03 15:06] LABS: ALK PHOS 65 U/L (40-150)
[2025-01-03 15:09] LABS: CREATININE 0.53 mg/dL (0.55-1.3); SGOT/AST 11 U/L (5-34); SGPT/ALT 11 U/L (0-55)
[2025-01-03 15:27] LABS: HCV DIAGNOSTIC IN-HOUSE W/RFLX NON-REACTIVE (NONREACTIVE)
[2025-01-03 15:28] LABS: HIV INTERPRETATION NEGATIVE (NEGATIVE)
[2025-01-03] MEDS ORDERED: INSULIN REGULAR HUMAN 100 UNITS/ML *VIAL ONE (16:08)
[2025-01-03] MEDS: INSULIN REGULAR HUMAN 100 UNITS/ML *VIAL IVPUSH ONE (16:11)
[2025-01-03] MEDS ORDERED: KCL 10 MEQ IVPB 30 MEQ/300 ML INFUS.BAG IVPB ONE (16:50)
[2025-01-03 16:57] LABS: GLUCOSE,RANDOM 548 mg/dL (74-106)
[2025-01-03 16:58] LABS: CO2 18 mmol/L (21-32)
[2025-01-03 17:03] LABS: CREATININE 0.46 mg/dL (0.55-1.3)
[2025-01-03] MEDS: KCL 10 MEQ IVPB 10 MEQ/100 ML INFUS.BAG IVPB SCH (17:07)
[2025-01-03] MEDS: INSULIN REGULAR 100 UNITS in SODIUM CHLORIDE 99 ML IVPB SCH (18:09)
[2025-01-03] MEDS ORDERED: ALBUTEROL SO4 HFA INHALER IH PRN (19:29)
[2025-01-03] MEDS ORDERED: DEXTROSE 50%-WATER 25 GM/50 ML DISP.SYRIN IVPUSH PRN (19:39)
[2025-01-03] MEDS: LACTATED RINGERS SOLUTION 1,000 ML IV SCH (20:30)
[2025-01-03 20:51] VITALS: BMI 23.8
[2025-01-03] MEDS: BUDESONIDE/FORMETEROL FUMARATE 160/4.5 mcg INHALER IH SCH (21:33)
[2025-01-03] MEDS: INSULIN ASPART SLIDING SCALE (NOVOLOG) 1 VIAL SQ SCH (21:35)
[2025-01-03] MEDS: INSULIN GLARGINE (LANTUS) 100 UNITS/ML UNITS SQ SCH (21:37)
[2025-01-03 22:00] LABS: GLUCOSE,RANDOM 419 mg/dL (74-106); TOT PROT 6.3 g/dl (6.4-8.2)
[2025-01-03 22:01] LABS: CO2 20 mmol/L (21-32)
[2025-01-03 22:02] LABS: ALK PHOS 49 U/L (40-150)
[2025-01-03 22:05] LABS: SGOT/AST 10 U/L (5-34); SGPT/ALT < 6 U/L (0-55)
[2025-01-03 22:06] LABS: CREATININE 0.45 mg/dL (0.55-1.3)
[2025-01-04 06:10] LABS: ARTERIAL BLD GAS O2 SATURATION 96.5 % (95-98); ARTERIAL BLOOD GAS BASE EXCESS -1.9 mmol/L (-2-2); ARTERIAL BLOOD GAS PCO2 33.20 mmHg (35-45); ARTERIAL BLOOD GAS PO2 82.5 mmHg (80-100); BG HCT 35.0 % (32.4-45.2)
[2025-01-04 08:08] LABS: ABSOLUTE IMMATURE GRANULOCYTES 0.03 x10^3/uL (0.0-0.031); BASOPHILS # 0.04 x10^3/uL (0.01-0.08); EOSINOPHIL % 1.5 % (0.7-5.8); EOSINOPHILS # 0.11 x10^3/uL (0.04-0.36); MCHC 32.9 g/dl (32.2-35.5); MEAN CELL VOLUME 80.0 fl (79.4-94.8); MEAN PLT VOLUME 11.3 fl (9.4-12.3); MONOCYTE # 0.57 x10^3/uL (0.24-0.86); MONOCYTE % 7.6 % (4.7-12.5); RDW 12.7 % (12.2-17.1)
[2025-01-04 08:17] LABS: GLUCOSE,RANDOM 206.0 mg/dL (74-106)
[2025-01-04 08:18] LABS: CO2 24.0 mmol/L (21-32); TOT PROT 6.6 g/dl (6.4-8.2)
[2025-01-04 08:20] LABS: ALK PHOS 50.0 U/L (40-150)
[2025-01-04 08:23] LABS: CREATININE 0.38 mg/dL (0.55-1.3); SGOT/AST 11.0 U/L (5-34); SGPT/ALT 7.0 U/L (0-55)
[2025-01-04 08:26] LABS: LDL CHOLESTEROL (ONLY SJRH) 106.0 mg/dL (5-100)
[2025-01-04] MEDS: POTASSIUM CHLORIDE ORAL LIQUID 20 MEQ/15 ML PO ONE (10:04)
[2025-01-04] MEDS: MAGNESIUM 2GM/50ML STERILE WATER IVPB IVPB ONE (10:05)
[2025-01-04] MEDS: GABAPENTIN 100 MG CAPSULE PO SCH (11:34)
[2025-01-04] MEDS: LACTATED RINGERS SOLUTION 1,000 ML/1,000 ML INFUS.BAG IV SCH (16:37)
[2025-01-05] MEDS: INSULIN ASPART SLIDING SCALE (NOVOLOG) 1 VIAL SQ SCH (06:03)
[2025-01-05] MEDS: INSULIN GLARGINE (LANTUS) 100 UNITS/ML UNITS SQ SCH (06:04)
[2025-01-05] MEDS: ARTIFICIAL TEARS OPHTHALMIC DROPS OU PRN (09:08)
[2025-01-05 09:16] VITALS: BP 90/62; PULSE 78; RESP 18; TEMP 99
[2025-01-05] MEDS: GABAPENTIN 100 MG CAPSULE PO SCH (09:36)
[2025-01-05 09:56] LABS: GLUCOSE,RANDOM 176.0 mg/dL (74-106)
[2025-01-05 09:58] LABS: CO2 25.0 mmol/L (21-32)
[2025-01-05 10:02] LABS: CREATININE 0.32 mg/dL (0.55-1.3)
[2025-01-05] MEDS: POTASSIUM CHLORIDE ORAL LIQUID 20 MEQ/15 ML PO ONE (10:21)
== END 2025-01-05 12:46 | disposition home or self-care (01) | DRG 420 ==
LOC: JER 13:11 → JERBED 18:01 → J5S 20:06 → OBSVTOIN 01-04 09:18
PROVIDERS: ADMIT Student in an Organized Health Care Education/Training Program; ATTEND Internal Medicine
DX: E11.00 Type 2 diabetes mellitus with hyperosmolarity without nonketotic hyperglycemic-hyperosmolar coma (NKHHC) (principal); G40.909 Epilepsy, unspecified, not intractable, without status epilepticus; J45.909 Unspecified asthma, uncomplicated; E11.40 Type 2 diabetes mellitus with diabetic neuropathy, unspecified; E11.42 Type 2 diabetes mellitus with diabetic polyneuropathy; Z59.01 Sheltered homelessness
CPT/HCPCS: 36415; 36600; 71045-TC-FY; 80048; 80053; 80061; 81003; 82010; 82803; 82962; 83036; 83735; 84100; 84439; 84443; 84703; 85025; 86803; 87086; 87389; 93005; 93010; 99285-25; G0378